=== PATIENT | female | born 1960 | race Caucasian/White ===

== ENCOUNTER 2024-07-29 09:26 | Outpatient (AMB) | payer BC, SELFPAY ==
--- NOTE | 2024-07-29 09:25 | MHC.OFFVIS ---
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 Accompanied by: Self / Same As Patient Allergies polymyxin B Allergy (Severe, Verified 07/29/24 09:52) hives erythromycin base [Erythromycin Base] Allergy (Mild, Unverified 07/29/24 09:52) MILD NSAIDS (Non-Steroidal Anti-Inflamma [Nsaids] Allergy (Mild, Unverified 07/29/24 09:52) HIVES oxycodone [From Tylox] Allergy (Mild, Unverified 07/29/24 09:52) MILD acetaminophen [From Vicodin] Allergy (Verified 07/29/24 09:52) Rash aspirin Allergy (Verified 07/29/24 09:52) Unknown hydrocodone [From Vicodin] Allergy (Verified 07/29/24 09:52) Rash naproxen Allergy (Verified 07/29/24 09:52) Unknown Sulfa (Sulfonamide Antibiotics) Allergy (Verified 07/29/24 09:52) Unknown augmentin Adverse Reaction (Uncoded 07/29/24 09:52) abdominal pain, diarrhea Medication List - Last Reconciled 07/29/24 by Roya Craven LPN amlodipine-benazepril 10-40 mg 1 cap PO DAILY atorvastatin 20 mg PO DAILY budesonide-formoterol 160-4.5 mcg/actuation (Breyna) 2 puffs inhalation BID loratadine 10 mg PO DAILY omeprazole 20 mg PO DAILY HPI HPI Cough(COMPLEX): Details: Renee is a pleasnt 64 year old female, former smoker, quit 15 years ago with 20 pack year history, with underlying asthma, allergic rhinitis, GERD and LIZZ on CPAP. She was referred by PCP for pulmonary evaluation for subacute cough. She reports cough started in mid April and has persistent. On 06/13 +RSV, treated with benzonatate with minimal improvement. PCP then sent doxycycline as well as prednisone on 06/21 with significant improvement in symptoms. CXR 06/27 unremarkable. She is currently on Breyna, using albuterol MDI/neb infrequently recently, however multiple times per day with RSV. She continues to report persistent mucous in throat with occasional dry cough, denies chest congestion, wheezing or dyspnea. She was dx with asthma as a child, never requiring intubation/hospitalization. She endorses multiple seasonal allergies, no recent allergy testing. She has no pets at home. She denies any occupational exposures however reports worsening symptoms at work with poor air quality. She reports sister with asthma, otherwise no pertinent family history. [facility] Social History (Updated 07/29/24 @ 09:43 by Roya Craven LPN) Patient Tobacco Use Status: Former Tobacco user Cigarette Packs Per Day: 0.5 Years Smoked: 30+ Quit in 2007 Review of Systems Const Denies chills, Denies excessive sweating, Denies fever(s), Denies headache(s) and Denies night sweats Eyes Denies dry eyes, Denies irritation and Denies itchy eyes ENT Reports Normal hearing present, Denies headache(s), Denies nasal congestion, Denies nasal discharge, Reports post nasal drip and Denies sore throat Card Denies chest pain, Denies chest pain at rest, Denies chest pain with activity, Denies claudication, Denies leg edema, Denies dyspnea, Denies dyspnea on exertion, Denies orthopnea and Denies paroxysmal nocturnal dyspnea Resp Reports cough, Denies excessive phlegm production, Denies pain on inspiration, Denies pain with cough, Denies dyspnea, Denies dyspnea on exertion, Denies stridor and Denies wheezing Musc Denies myalgias Neuro Reports Normal hearing present and Denies headache(s) Endo Denies excessive sweating Payam/Lymph Denies lymphadenopathy Aller/Immun Denies itchy eyes, Denies seasonal rhinorrhea and Denies wheezing Physical Exam Vital Signs: Last Vital Signs Pulse 91 07/29/24 09:30 BP 128/70 07/29/24 09:30 Pulse Ox 97 07/29/24 09:30 Oxygen Delivery Method Room Air 07/29/24 09:30 BMI result Body Mass Index 36.5 Const General: cooperative, healthy appearing, comfortable, no acute distress, well developed and alert Nutritional Appearance: obese Orientation/consciousness: patient oriented x3 Limitations: no limitations HEENT Head: Yes normal to inspection, Yes normocephalic and Yes atraumatic Ears: hearing grossly normal bilaterally and external ears normal Eyes General: appearance normal, both eyes and all related structures Eyelids: Yes eyelids normal Sclerae: sclerae normal EOM: EOMs intact bilaterally Neck Neck: Yes normal visual inspection and Yes no lymphadenopathy Lymphatic: no lymphadenopathy noted Chest Chest palpation & inspection: normal inspection of the chest Resp Effort & Inspection: normal respiratory effort, able to speak in complete sentences, no audible wheezes, no stridor, not tachypneic, no tripod positioning and no use of accessory muscles Cardio Jugular venous distension: no JVD Rate: regular rate Rhythm: regular rhythm Skin Other: warm, dry General skin exam: no rashes or lesions noted Neuro General: patient oriented x3 Cranial nerves: Yes Normal hearing present Cognition (Neuro): normal cognition Gait exam (Neuro): Normal gait present Extrem General: Yes normal to inspection, Yes capillary refill normal, Yes no clubbing, cyanosis or edema and Yes no pedal edema Psych Appearance: grossly normal and well kempt Speech and movement: Normal speech and movement present and Clear speech present Affect: normal affect Attitude: cooperative Thought process: Normal thought process present Thought content: Normal thought content present Insight: Good insight present (Psych) Judgement: Good judgement present (Psych) Assessment & Plan Assessment & Plan (1) Asthma: Code(s): J45.909 - Unspecified asthma, uncomplicated Category: Medical (2) Cough: Code(s): R05.9 - Cough, unspecified Category: Medical (3) Environmental allergies: Code(s): Z91.09 - Other allergy status, other than to drugs and biological substances Category: Medical (4) Personal history of tobacco use: Code(s): Z87.891 - Personal history of nicotine dependence Category: Social Hx Plan Renee presents for pulmonary evaluation after prolonged cough s/p RSV. She was treated with prednisone and doxycycline with significant improvements in symptoms, CXR 06/27 unremarkable. Continued symptoms may be allergy related and secondary to post nasal drip. Will empirically trial ipratropium nasal spray. Will send for PFT and RAST. All questions were answered and patient is in agreement of plan. Will follow up to review results or sooner if needed. Orders: Orders Immunoglobulin E Today Z91.09 - Other allergy status, other than to drugs and biological substances Resp Allergy Profile Region I Today Z91.09 - Other allergy status, other than to drugs and biological substances Complete Blood Count Auto Diff Today Z91.09 - Other allergy status, other than to drugs and biological substances PFT pulmonary function test Today J45.909 - Unspecified asthma, uncomplicated Medications: New ipratropium bromide administer into each nostril 2 sprays intranasal BID 30 mL 3RF Coding Level of Care Code New Pt Level 4 (12844) Diagnoses Asthma J45.909 Cough R05.9 Environmental allergies Z91.09 Personal history of tobacco use Z87.891
[2024-07-29 09:30] VITALS: BP 128/70; PULSE 91; O2SAT 97; BMI 36.5
--- OUTSIDE RECORDS SUMMARY | 2024-07-29 10:35 | XMS_ITS | Clinical Summary ---
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 Name Role Phone Unavailable Primary Care Provider Unavailabl e Social History Tobacco Use Types Packs/Day Years Used Date Smoking Tobacco: Never Assessed Sex and Gender Information Value Date Recorded Sex Assigned at Not on file Gender Identity Not on file Sexual Orientation Not on file Plan of Treatment Health Maintenance Due Date Last Done Comments Hepatitis C Virus Screening 1960 HIV Screening 07/04/1972 DTaP/Tdap/Td Vaccines (1 - Tdap) 07/04/1978 Pneumococcal Vaccines 50+ (1 of 1 - PCV) 07/04/2009 Zoster (Shingles) Vaccine (1 of 2) 07/04/2009 COVID-19 Vaccine ( - 2023-2 5 season) 2024 RSV Vaccine 60 years and old er and Patients (1 - 1-dose 75+ series) 07/04/2034 Hepatitis B Vaccines Aged Out No long er eligible based on patient's age to complete this topic Pneumococcal Vaccine: Pediat umesh (0-5 Years) and At-Risk Patients (6 to 49 Years) Aged Out No longer eligible b ased on patient's age to complete this topic
== END 2024-07-29 10:11 | disposition home or self-care (01) ==
LOC: HO.HPSW 09:27
PROVIDERS: PCP Internal Medicine; Referring Provider Internal Medicine; Visit Provider Nurse Practitioner Family
DX: J45.909 Unspecified asthma, uncomplicated (principal); R05.9 Cough, unspecified; Z91.09 Other allergy status, other than to drugs and biological substances; Z87.891 Personal history of nicotine dependence
CPT/HCPCS: 99204

== ENCOUNTER → 2024-07-29 09:26 | Outpatient (BNVA) | payer BC, SELFPAY | PROVIDERS: PCP Internal Medicine; Referring Provider Internal Medicine; Visit Provider Nurse Practitioner Family ==

== ENCOUNTER 2024-09-10 15:21 | Outpatient (REF) | payer BC, SELFPAY ==
[2024-09-10 15:45] LABS: MANUAL DIFF FLAG NO
--- NOTE | 2024-09-10 15:51 | PFT_ITS ---
Indication: Asthma Spirometry [FEV1 to FVC 69%; FEV1 1.53 L; FVC 2.24 L. no significant response to bronchodilators noted.] Lung Volumes [Total lung capacity 88% predicted; residual volume 102% predicted; expiratory reserve volume 49% predicted] Diffusion Capacity [DLCO 91% predicted] Comparisons [none] Interpretation [There is an obstructive ventilatory defect consistent with moderate COPD. No significant response to bronchodilators noted. Lung volumes are normal except for decrease in the expiratory reserve volume secondary to an elevated BMI. Diffusing capacity is within normal limits. Clinical correlation is warranted.] MTDD
--- OUTSIDE RECORDS SUMMARY | 2024-09-10 15:56 | XMS_ITS | Clinical Summary ---
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
--- OUTSIDE RECORDS SUMMARY | 2024-09-10 15:57 | XMS_ITS | Data Portability ---
Author Organization [facility], Main Office Address [address] [place] [address] Care Team Providers Care Payroll Professional Name Role Phone ALLISON APODACA Primary Care Provider MARCELA LEWIS Back Tender [employer] Machine MAE HUERTA Vascular Surgeon [facility] Orthopedic Surgeon [facility] G[address]ologi st [phone] ABBI SCHRADER Urologist [phone] Assessment Encounter Date Assessment Date Assessment LastModified by Organization Details LastModified Time 03/23/2024 03/23/2024 Discussed with patient the signs/symptoms warranted for a return to office visit and/or an ER visit. Patient understood and agreed with the plan. Not available 03/23/2024 12:18:12 04/16/2024 04/16/2024 This service was provided using telemedicine. Patient consented to video & audio visit Patient was located in the [facility]. Provider was located in the office. No other persons participated in the telemedicine visit except for the patient unless otherwise indicated here. {{}} Total time of visit was 15 minutes. [email or web address] Not available 04/16/2024 18:45:47 06/13/2024 06/13/2024 The patient presents with symptoms of headache, earache, nasal congestion, shortness of breath with wheezing, and body aches since yesterday morning. She has a known history of asthma and was recently exposed to influenza A through a friend. Flu and COVID tests were negative today. Given her symptoms and confirmed RSV diagnosis, we will focus on supportive care and close monitoring of her respiratory status. I did send quincy nieves for cough. At this time, we will hold off on oral steroids as she does not have significant respiratory distress, and her lung exam does not indicate severe wheezing or prolonged expiratory phase. However, if symptoms worsen? s uch as increasing shortness of breath, persistent tightness, or a need for frequent albuterol use without relief? w vinicius may reconsider a short course of steroids. For now, she will continue using her albuterol inhaler as needed for wheezing or chest tightness, ensuring she does not exceed the recommended dosing frequency. If she finds herself using it more than every four hours, she should notify the office for reassessment. She should also continue maintenance inhaled corticosteroids if part of her regular asthma regimen. Supportive care measures include hydration, rest, a humidifier, and nasal saline rinses as needed for congestion relief was advised. She should monitor for worsening symptoms, including persistent shortness of breath, chest tightness, or difficulty breathing, and seek urgent care if these develop. Regarding work, given her ongoing symptoms and risk of spreading RSV, she may need time off, particularly if her job involves close contact with others or high-risk individuals. I did give her a work note off on Saturday, and she should wear a mask and practice good hand hygiene if she returns sooner. Follow-up as needed. If symptoms worsen, fever develops, or she has concerns, she should reach out sooner. [email or web address] Not available 06/13/2024 13:27:28 Plan of Treatment Reminders Order Date Submit Date Provider Last Modified By Organization Details Last Modified Time Details Appointments None recorded. Lab rapid flu (A+B) 2024 025 [email or web address] In-Office Order, Internal Use Only DO Not Attach Compendium DO Not Attach Compendium, Do Not Delete/merge, [id number] 11:15:29 rapid SARS CoV 2 Ag, QL IA, respirator y specimen 2024 025 [facility] In-Office Order, Internal Use Only DO Not Attach Compendium DO Not Attach Compendium, Do Not Delete/merge, [id number] 11:59:45 rsv (respirato ry syncytial virus), rapid, nasopharyn geal 2024 025 [place] In-Office Order, Internal Use Only DO Not Attach Compendium DO Not Attach Compendium, Do Not Delete/merge, [id number] 11:59:34 urinalysis complete, reflex culture 2023 024 [facility] (Centralized Electronic Ordering - All Locations), Patient Can Go To The Location Of Their Choice, [id number] 4 08:09:01 urinalysis , dipstick 2023 024 [facility] In-Office Order, Internal Use Only DO Not Attach Compendium DO Not Attach Compendium, Do Not Delete/merge, [id number] 13:24:59 culture, urine 2023 024 [facility] (Centralized Electronic Ordering - All Locations), Patient Can Go To The Location Of Their Choice, [id number] 4 20:06:59 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 Not improving with steroids and abx. 2024 025 [email or web address] Ennis, [address] [place] [address] [place], [address], 5 11:26:40 Procedures None recorded. Surgeries None recorded. Imaging XR, chest, 2 view - Chronic cough for 2 months; r/o infiltrate /mass 2024 025 [facility] (Ultrasound), [address] [place], [address], 5 12:06:32 Medication Orders fluconazol e 200 mg tablet 2024 025 [facility]/Pharmacy #[id number], [address] [place], [address], 5 11:20:31 benzonatat e 200 mg capsule 2024 025 [facility]/Pharmacy #[id number], [address] [place], [address], 11:23:38 prednisone 10 mg tablet 2024 025 [id number] [address] [facility], [place], [address], 17:42:05 benzonatat e 200 mg capsule 2024 025 [id number] [address] [place], [address], 12:00:52 Augmentin 875 mg-125 mg tablet 2023 025 [facility] [address] [place], [address], 10:55:14 Patient TargetsNo targets recorded. Patient Instructions Encounter Date Encounter Id Patient Instructions Last Modified By Organization Details Last Modified Time 03/23/2024 [id number] At [facility] follow up visit, all current and discharge medications (OTC, herbal therapies, supplements) reviewed and reconciled with patient and or caregiver, including potential side effects, drug interactions, instructions, and the consequences of not taking medication. Reviewed potential barriers to medication adherence, such as side effects from medication or cost of medication. [email or web address] Not available 03/23/2024 13:07:19 04/16/2024 [id number] Acute Sinusitis: Care Instructions [email or web address] Not available 04/16/2024 14:24:24 06/23/2024 [id number] Acute Sinusitis: Care Instructions [email or web address] Not available 06/23/2024 17:43:20 bronchitis: care instructions [email or web address] Not available 06/23/2024 15:17:22 06/27/2024 [id number] candidiasis: care instructions [email or web address] Not available 06/27/2024 11:20:29 chronic cough: care instructions [email or web address] Not available 06/27/2024 11:17:21 Reason for Referral [employer] Referral for Chronic cough Chronic cough since april. Not improving with steroids and abx. Referring Physician: Allison Apodaca, Family Medicine, Encounter Date: 06/27/2024 Results Created Date Observation Date Name Description Value Unit Range Abnormal Flag Note LastModifiedBy Organization Detail LastModifiedTime 03/17/20 24 03/18/2024 CMP14 (REFL EX HGB A1C) glucose 81 mg/dL 70-99 normal Not Available [facility] ([facility]) [address] [place], [address], 03/18/2024 12:06:25 03/17/20 24 03/18/2024 CMP14 (REFL EX HGB A1C) BUN 21 mg/dL 8-27 normal Not Available [facility] ([facility]) [address] [place], [address], 03/18/2024 12:06:25 03/17/20 24 03/18/2024 CMP14 (REFL EX HGB A1C) creatinine 0.71 mg/dL 0.57-1 .00 normal Not Available [facility] ([facility]) [address] [place], [address], 03/18/2024 12:06:25 03/17/20 24 03/18/2024 CMP14 (REFL EX HGB A1C) eGFR 95 mL/mi n/1.7 3 >59 normal Not Available [facility] ([facility]) [address] [place], [address], 03/18/2024 12:06:25 03/17/20 24 03/18/2024 CMP14 (REFL EX HGB A1C) BUN/creatini ne ratio 30 12-28 above high normal Not Available [facility] ([facility]) [address] [place], [address], 03/18/2024 12:06:25 03/17/20 24 03/18/2024 CMP14 (REFL EX HGB A1C) sodium 142 mmol/ L 134-14 4 normal Not Available [facility] ([facility]) [address] [place], [address], 03/18/2024 12:06:25 03/17/2003/18/2024 CMP14 (REFL EX HGB A1C) potassium 4.1 mmol/ L 3.5-5. 2 normal Not Available [facility] ([facility]) [address] [place], [address], 03/18/2024 12:06:25 03/17/2003/18/2024 CMP14 (REFL EX HGB A1C) chloride 103 mmol/ L 96-106 normal Not Available [facility] ([facility]) [address] [place], [address], 03/18/2024 12:06:25 03/17/2003/18/2024 CMP14 (REFL EX HGB A1C) carbon dioxide, total 21 mmol/ L 20-29 normal Not Available [facility] ([facility]) [address] [place], [address], 03/18/2024 12:06:25 03/17/2003/18/2024 CMP14 (REFL EX HGB A1C) calcium 8.8 mg/dL 8.7-10 .3 normal Not Available [facility] ([facility]) [address] [place], [address], 03/18/2024 12:06:25 03/17/2003/18/2024 CMP14 (REFL EX HGB A1C) protein, total 6.8 g/dL 6.0-8. 5 normal Not Available [facility] ([facility]) [address] [place], [address], 03/18/2024 12:06:25 03/17/2003/18/2024 CMP14 (REFL EX HGB A1C) albumin 4.6 g/dL 3.9-4. 9 normal Not Available [facility] ([facility]) [address] [place], [address], 03/18/2024 12:06:25 03/17/20 24 03/18/2024 CMP14 (REFL EX HGB A1C) globulin, total 2.2 g/dL 1.5-4. 5 Not Available [facility] ([facility]) [address] [place], [address], 03/18/2024 12:06:25 03/17/20 24 03/18/2024 CMP14 (REFL EX HGB A1C) bilirubin, total 0.6 mg/dL 0.0-1. 2 normal Not Available [facility] ([facility]) [address] [place], [address], 03/18/2024 12:06:25 03/17/2003/18/2024 CMP14 (REFL EX HGB A1C) alkaline phosphatase 63 IU/L 44-121 normal Not Available [facility] ([facility]) [address] [place], [address], 03/18/2024 12:06:25 03/17/20 24 03/18/2024 CMP14 (REFL EX HGB A1C) AST (SGOT) 18 IU/L 0-40 normal Not Available [facility] ([facility]) [address] [place], [address], 03/18/2024 12:06:25 03/17/20 24 03/18/2024 CMP14 (REFL EX HGB A1C) ALT (SGPT) 12 IU/L 0-32 normal Not Available [facility] ([facility]) [address] [place], [address], 03/18/2024 12:06:25 03/17/2003/18/2024 CBC WITH DIFFE RENTI AL/PL ATELE T WBC 11.3 x10e3 /uL 3.4-10 .8 above high normal Not Available [facility] ([facility]) [address] [place], [address], 03/18/2024 12:06:27 03/17/20 24 03/18/2024 CBC WITH DIFFE RENTI AL/PL ATELE T RBC 4.37 x10e6 /uL 3.77-5 .28 normal Not Available [facility] ([facility]) [address] [place], [address], 03/18/2024 12:06:27 03/17/20 24 03/18/2024 CBC WITH DIFFE RENTI AL/PL ATELE T hemoglobin 13.0 g/dL 11.1-1 5.9 normal Not Available [facility] ([facility]) [address] [place], [address], 03/18/2024 12:06:27 03/17/20 24 03/18/2024 CBC WITH DIFFE RENTI AL/PL ATELE T hematocrit 39.2 % 34.0-4 6.6 normal Not Available [facility] ([facility]) [address] [place], [address], 03/18/2024 12:06:27 03/17/20 24 03/18/2024 CBC WITH DIFFE RENTI AL/PL ATELE T MCV 90 fL 79-97 normal Not Available [facility] ([facility]) [address] [place], [address], 03/18/2024 12:06:27 03/17/20 24 03/18/2024 CBC WITH DIFFE RENTI AL/PL ATELE T MCH 29.7 pg 26.6-3 3.0 normal Not Available [facility] ([facility]) [address] [place], [address], 03/18/2024 12:06:27 03/17/20 24 03/18/2024 CBC WITH DIFFE RENTI AL/PL ATELE T MCHC 33.2 g/dL 31.5-3 5.7 normal Not Available [facility] ([facility]) [address] [place], [address], 03/18/2024 12:06:27 03/17/20 24 03/18/2024 CBC WITH DIFFE RENTI AL/PL ATELE T RDW 12.9 % 11.7-1 5.4 Not Available [facility] ([facility]) [address] [facility], [place], [address], 03/18/2024 12:06:27 03/17/20 24 03/18/2024 CBC WITH DIFFE RENTI AL/PL ATELE T platelets 235 x10e3 /uL 150-45 0 normal Not Available [facility] ([facility]) [address] [facility], [place], [address], 03/18/2024 12:06:27 03/17/20 24 03/18/2024 CBC WITH DIFFE RENTI AL/PL ATELE T neutrophils 62 % not estab. normal Not Available [facility] ([facility]) [address] [facility], [place], [address], 03/18/2024 12:06:27 03/17/20 24 03/18/2024 CBC WITH DIFFE RENTI AL/PL ATELE T lymphs 31 % not estab. normal Not Available [facility] ([facility]) [address] [facility], [place], [address], 03/18/2024 12:06:27 03/17/20 24 03/18/2024 CBC WITH DIFFE RENTI AL/PL ATELE T monocytes 6 % not estab. normal Not Available [facility] ([facility]) [address] [facility], [place], [address], 03/18/2024 12:06:27 03/17/20 24 03/18/2024 CBC WITH DIFFE RENTI AL/PL ATELE T eos 1 % not estab. normal Not Available [facility] ([facility]) [address] [facility], [place], [address], 03/18/2024 12:06:27 03/17/20 24 03/18/2024 CBC WITH DIFFE RENTI AL/PL ATELE T basos 0 % not estab. normal Not Available [facility] ([facility]) [address] [place], [address], 03/18/2024 12:06:27 03/17/20 24 03/18/2024 CBC WITH DIFFE RENTI AL/PL ATELE T immature cells WEATHER ANALYST Not Available [facility] ([facility]) [address] [place], [address], 03/18/2024 12:06:27 03/17/20 24 03/18/2024 CBC WITH DIFFE RENTI AL/PL ATELE T neutrophils (absolute) 6.8 x10e3 /uL 1.4-7. 0 normal Not Available [facility] ([facility]) [address] [place], [address], 03/18/2024 12:06:27 03/17/20 24 03/18/2024 CBC WITH DIFFE RENTI AL/PL ATELE T lymphs (absolute) 3.5 x10e3 /uL 0.7-3. 1 above high normal Not Available [facility] ([facility]) [address] [place], [address], 03/18/2024 12:06:27 03/17/20 24 03/18/2024 CBC WITH DIFFE RENTI AL/PL ATELE T monocytes(ab solute) 0.7 x10e3 /uL 0.1-0. 9 normal Not Available [facility] ([facility]) [address] [place], [address], 03/18/2024 12:06:27 03/17/20 24 03/18/2024 CBC WITH DIFFE RENTI AL/PL ATELE T eos (absolute) 0.1 x10e3 /uL 0.0-0. 4 normal Not Available [facility] ([facility]) [address] [place], [address], 03/18/2024 12:06:27 03/17/20 24 03/18/2024 CBC WITH DIFFE RENTI AL/PL ATELE T baso (absolute) 0.1 x10e3 /uL 0.0-0. 2 normal Not Available [facility] ([facility]) [address] [facility], [place], [address], 03/18/2024 12:06:27 03/17/20 24 03/18/2024 CBC WITH DIFFE RENTI AL/PL ATELE T immature granulocytes 0 % not estab. Not Available [facility] ([facility]) [address] [facility], [place], [address], 03/18/2024 12:06:27 03/17/20 24 03/18/2024 CBC WITH DIFFE RENTI AL/PL ATELE T immature grans (abs) 0.0 x10e3 /uL 0.0-0. 1 Not Available [facility] ([facility]) [address] [place], [address], 03/18/2024 12:06:27 03/17/20 24 03/18/2024 CBC WITH DIFFE RENTI AL/PL ATELE T NRBC WEATHER ANALYST Not Available [facility] ([facility]) [address] [place], [address], 03/18/2024 12:06:27 03/17/20 24 03/18/2024 CBC WITH DIFFE RENTI AL/PL ATELE T hematology comments: WEATHER ANALYST Not Available [facility] ([facility]) [address] [facility], [place], [address], 03/18/2024 12:06:27 03/17/20 24 03/18/2024 MEGHAN+L IPASE amylase 67 U/L 31-110 normal Not Available [facility] ([facility]) [address] [place], [address], 03/18/2024 12:06:28 03/17/20 24 03/18/2024 MEGHAN+L IPASE lipase 21 U/L 14-72 normal Not Available [facility] ([facility]) [address] [facility], [place], [address], 03/18/2024 12:06:28 03/23/20 24 03/25/2024 URINE CULTU RE, ROUTI NE urine culture, routine Final report Not Available [facility] ([facility]) [address] [facility], [place], [address], 03/25/2024 20:06:59 03/23/20 24 03/25/2024 URINE CULTU RE, ROUTI NE result 1 No growth Not Available [facility] ([facility]) [address] [facility], [place], [address], 03/25/2024 20:06:59 03/23/20 24 03/23/2024 urina lysis , dipst ick Leukocytes Negati ve Not Available In-Office Order Internal Use Only DO Not Attach Compendium DO Not Attach Compendium, Do Not Delete/merge, [id number] 03/23/2024 12:18:14 03/23/20 24 03/23/2024 urina lysis , dipst ick Nitritie negati ve Not Available In-Office Order Internal Use Only DO Not Attach Compendium DO Not Attach Compendium, Do Not Delete/merge, [id number] 03/23/2024 12:18:14 03/23/20 24 03/23/2024 urina lysis , dipst ick Urobilinogen .2 Not Available In-Of fice Order Internal Use Only DO Not Attach Compendium DO Not Attach Compendium, Do Not Delete/merge, [id number] 03/23/2024 12:18:14 03/23/20 24 03/23/2024 urina lysis , dipst ick Protein Negati ve Not Available In-Office Order Internal Use Only DO Not Attach Compendium DO Not Attach Compendium, Do Not Delete/merge, [id number] 03/23/2024 12:18:14 03/23/20 24 03/23/2024 urina lysis , dipst ick pH 6.0 Not Available In-Office Order Internal Use Only DO Not Attach Compendium DO Not Attach Compendium, Do Not Delete/merge, [id number] 03/23/2024 12:18:14 03/23/2003/23/2024 urina lysis , dipst ick Blood Negati ve Not Available In-Office Order Internal Use Only DO Not Attach Compendium DO Not Attach Compendium, Do Not Delete/merge, [id number] 03/23/2024 12:18:14 03/23/20 24 03/23/2024 urina lysis , dipst ick Specific Hosmer 1.015 Not Available In-Off ice Order Internal Use Only DO Not Attach Compendium DO Not Attach Compendium, Do Not Delete/merge, [id number] 03/23/2024 12:18:14 03/23/2003/23/2024 urina lysis , dipst ick Ketone Negati ve Not Available In-Office Order Internal Use Only DO Not Attach Compendium DO Not Attach Compendium, Do Not Delete/merge, [id number] 03/23/2024 12:18:14 03/23/20 24 03/23/2024 urina lysis , dipst ick Bilirubin Negati ve Not Available In-Office Order Internal Use Only DO Not Attach Compendium DO Not Attach Compendium, Do Not Delete/merge, [id number] 03/23/2024 12:18:14 03/23/2003/23/2024 urina lysis , dipst ick Glucose Negati ve Not Available In-Office Order Internal Use Only DO Not Attach Compendium DO Not Attach Compendium, Do Not Delete/merge, [id number] 03/23/2024 12:18:14 03/23/20 24 03/23/2024 urina lysis , dipst ick Appearance Clear Not Available In-Offi ce Order Internal Use Only DO Not Attach Compendium DO Not Attach Compendium, Do Not Delete/merge, [id number] 03/23/2024 12:18:14 03/23/2003/23/2024 urina lysis , dipst ick Color Yellow Not Available In-Office Order Internal Use Only DO Not Attach Compendium DO Not Attach Compendium, Do Not Delete/merge, [id number] 03/23/2024 12:18:14 04/17/2004/18/2024 UA/M W/RFL X CULTU RE, ROUTI NE specific gravity 1.019 1.005- 1.030 normal Not Available [facility] ([facility]) [address] [facility], [place], [address], 04/18/2024 08:09:01 04/17/20 24 04/18/2024 UA/M W/RFL X CULTU RE, ROUTI NE pH 7.5 5.0-7. 5 normal Not Available [facility] ([facility]) [address] [place], [address], 04/18/2024 08:09:01 04/17/2004/18/2024 UA/M W/RFL X CULTU RE, ROUTI NE urine-color Yellow yellow Not Available [facility] ([facility]) [address] [place], [address], 04/18/2024 08:09:01 04/17/20 24 04/18/2024 UA/M W/RFL X CULTU RE, ROUTI NE appearance Clear clear Not Available [facility] ([facility]) [address] [place], [address], 04/18/2024 08:09:01 04/17/20 24 04/18/2024 UA/M W/RFL X CULTU RE, ROUTI NE WBC esterase Negati ve negati ve Not Available [facility] ([facility]) [address] [place], [address], 04/18/2024 08:09:01 04/17/2004/18/2024 UA/M W/RFL X CULTU RE, ROUTI NE protein Negati ve negati ve/tra ce Not Available [facility] ([facility]) [address] [place], [address], 04/18/2024 08:09:01 04/17/20 24 04/18/2024 UA/M W/RFL X CULTU RE, ROUTI NE glucose Negati ve negati ve Not Available [facility] ([facility]) [address] [place], [address], 04/18/2024 08:09:01 04/17/20 24 04/18/2024 UA/M W/RFL X CULTU RE, ROUTI NE ketones Negati ve negati ve Not Available [facility] ([facility]) [address] [place], [address], 04/18/2024 08:09:01 04/17/20 24 04/18/2024 UA/M W/RFL X CULTU RE ROUTI NE occult blood Negati ve negati ve Not Available [facility] ([facility]) [address] [place], [address], 04/18/2024 08:09:01 04/17/20 24 04/18/2024 UA/M W/RFL X CULTU RE ROUTI NE bilirubin Negati ve negati ve Not Available [facility] ([facility]) [address] [place], [address], 04/18/2024 08:09:01 04/17/20 24 04/18/2024 UA/M W/RFL X CULTU RE ROUTI NE urobilinogen ,semi-qn 0.2 mg/dL 0.2-1. 0 normal Not Available [facility] ([facility]) [address] [place], [address], 04/18/2024 08:09:01 04/17/20 24 04/18/2024 UA/M W/RFL X CULTVanna RE ROUTI NE nitrite, urine Negati ve negati ve Not Available [facility] ([facility]) [address] [place], [address], 04/18/2024 08:09:01 04/17/20 24 04/18/2024 UA/M W/RFL X CULTU RE, ROUTI NE microscopic examination Commen t Micro scopi c follo ws if indic ated. Not Available [facility] ([facility]) [address] [facility], [place], [address], 04/18/2024 08:09:01 04/17/20 24 04/18/2024 UA/M W/RFL X CULTU RE, ROUTI NE microscopic examination See below: Micro scopi c was indic ated and was perfo rmed. Not Available [facility] ([facility]) [address] [facility], [place], [address], 04/18/2024 08:09:01 04/17/20 24 04/18/2024 UA/M W/RFL X CULTU RE, ROUTI NE WBC None seen /hpf 0 - 5 Not Available [facility] ([facility]) [address] [facility], [place], [address], 04/18/2024 08:09:01 04/17/20 24 04/18/2024 UA/M W/RFL X CULTU RE, ROUTI NE RBC 0-2 /hpf 0 - 2 Not Available [facility] ([facility]) [address] [facility], [place], [address], 04/18/2024 08:09:01 04/17/20 24 04/18/2024 UA/M W/RFL X CULTU RE, ROUTI NE epithelial cells (non renal) 0-10 /hpf 0 - 10 Not Available [facility] ([facility]) [address] [facility], [place], [address], 04/18/2024 08:09:01 04/17/20 24 04/18/2024 UA/M W/RFL X CULTU RE, ROUTI NE epithelial cells (renal) WEATHER ANALYST Not Available [facility] ([facility]) [address] [facility], [place], [address], 04/18/2024 08:09:01 04/17/20 24 04/18/2024 UA/M W/RFL X CULTU RE, ROUTI NE casts None seen /lpf none seen Not Available [facility] ([facility]) [address], [place], [address], 04/18/2024 08:09:01 04/17/20 24 04/18/2024 UA/M W/RFL X CULTU RE, ROUTI NE cast type WEATHER ANALYST Not Available [facility] ([facility]) [address], [place], [address], 04/18/2024 08:09:01 04/17/20 24 04/18/2024 UA/M W/RFL X CULTU RE, ROUTI NE crystals WEATHER ANALYST Not Available [facility] ([facility]) [address] [facility], [place], [address], 04/18/2024 08:09:01 04/17/20 24 04/18/2024 UA/M W/RFL X CULTU RE, ROUTI NE crystal type WEATHER ANALYST Not Available [facility] ([facility]) [address] [facility], [place], [address], 04/18/2024 08:09:01 04/17/20 24 04/18/2024 UA/M W/RFL X CULTU RE, ROUTI NE mucus threads WEATHER ANALYST Not Available [facility] ([facility]) [address] [facility], [place], [address], 04/18/2024 08:09:01 04/17/20 24 04/18/2024 UA/M W/RFL X CULTU RE, ROUTI NE bacteria None seen none seen/f ew Not Available [facility] ([facility]) [address] [facility], [place], [address], 04/18/2024 08:09:01 04/17/20 24 04/18/2024 UA/M W/RFL X CULTU RE, ROUTI NE yeast WEATHER ANALYST Not Available [facility] ([facility]) [address] [facility], [place], [address], 04/18/2024 08:09:01 04/17/20 24 04/18/2024 UA/M W/RFL X CULTU RE, ROUTI NE trichomonas WEATHER ANALYST Not Available [facility] ([facility]) [address] [facility], [place], [address], 04/18/2024 08:09:01 04/17/20 24 04/18/2024 UA/M W/RFL X CULTU RE, ROUTI NE comment WEATHER ANALYST Not Available [facility] ([facility]) [address] [facility], [place], [address], 04/18/2024 08:09:01 04/17/20 24 04/18/2024 UA/M W/RFL X CULTU RE, ROUTI NE urinalysis reflex Commen t This speci men will not refle x to a Urine Cultu re. Not Available [facility] ([facility]) [address] [facility], [place], [address], 04/18/2024 08:09:01 06/13/19 25 06/13/2024 rsv (resp irato ry syncy tial virus ), rapid , nasop haryn geal RSV, RAPID positi ve Not Available In-Office Order Internal Use Only DO Not Attach Compendium DO Not Attach Compendium, Do Not Delete/merge, [id number] 06/13/2024 11:58:24 06/13/19 25 06/13/2024 rapid SARS CoV 2 Ag, QL IA, respi rator y speci men RAPID SARS COV 2 negati ve Not Available In-Office Order Internal Use Only DO Not Attach Compendium DO Not Attach Compendium, Do Not Delete/merge, [id number] 06/13/2024 11:58:04 06/13/19 25 06/13/2024 rapid flu (A+B) Flu A negati ve Not Available In-Office Order Internal Use Only DO Not Attach Compendium DO Not Attach Compendium, Do Not Delete/merge, [id number] 06/13/2024 10:43:25 06/13/19 25 06/13/2024 rapid flu (A+B) Flu B negati ve Not Available In-Office Order Internal Use Only DO Not Attach Compendium DO Not Attach Compendium, Do Not Delete/merge, [id number] 06/13/2024 10:43:25 06/27/19 25 06/27/2024 XR, chest , 2 view Chest 2 Views Fronta l and Lat INDICA TION/C LINICA L QUESTI ON: Reason : chroni c cough for 2 months ; Clinic al Questi on(s): Other: ; R O infilt rate mass / Other: TECHNI QUE: Fronta l and latera l views of the chest. COMPAR NICANOR: 021. FINDIN GS: LINES AND TUBES: None. LUNGS AND PLEURA : RIGHT CHEST: The right lung is clear and there is no right effusi on. LEFT CHEST: The left lung is clear and there is no left effusi on. HEART, MEDIAS TINUM AND SUZI: The heart is of normal size. The medias tinum and suzi are normal . BONES AND SOFT TISSUE S: No acute bony abnorm ality. IMPRES SEFERINO: 1. No active diseas e in chest. WSN: [id number] Orderi ng Physic kelsea: Allison Patel Dictat ed By: Ernie Gunderson MD Dictat ed Date/T ramses: 12:03 p Review ed By: Ernie Gunderson MD Signed By: Ernie Gunderson MD Signed Date/T ramses: 12:03 pm Transc ribed By: ARSALAN Transc ribed Date/T ramses: 12:03 pm Patien t Class: Outpat ient [facility] (Outpt Imaging) [address] [place], [address], 06/27/2024 14:02:45 Result Notes None recorded. Problems Name Problem SNOMED Code Status Onset Date Resolution Date Notes Provider Name and Address Organization Details Recorded Time Shoulder joint pain 196513214 Completed 201211/17/2013 IMPRESSI ON: WOULD NOT RECCOMEN D X-RAY. PT ORDER. F/U IF NOT IMPROVIN G; RECORDED 10/03/19 13 11:35AM BY STEFFANY ALLRED MA, ANNOTATI ON/ADDEN DUM Allison Apodaca MD [address], [place], [address] , [facility] 6 07:25:24 Acute sinusiti s 37049078 Completed 201211/17/2013 RECORDED 10/03/19 13 11:35AM BY STEFFANY ALLRED MA, ANNOTATI ON/ADDEN DUM JOYCELYN Salas [address] [facility] [address], [place], [address] , [facility] 4 10:50:28 Allergic rhinitis 71501888 Active Not Available Counts include 234 beds at the [facility] 1 11:13:07 Anxiety state 574798472 Active no meds; not currentl y an issue Not Available [facility] 1 11:13:07 Tobacco user 786970176 Completed 04/26/2014 Allison Apodaca MD [address] [address], [place], [address] , [facility] 6 07:25:24 History of clinical finding in subject 806642927 Completed 04/26/2014 Allison Apodaca MD [address] [address], [place], [address] , [facility] 6 07:25:24 Asthma 169139237 Completed 04/24/2017 uses proair leandron Allison Apodaca MD [address] [facility] [address], [place], [address] , [facility] 3 09:51:42 Acute asthma 218889644 Completed 04/24/2017 JACKELIN Fernandez, [facility] 7 15:14:00 Screenin g for malignan t neoplasm of breast Completed 201211/17/2013 RECORDED 10/03/19 13 11:35AM BY STEFFANY ALLRED MA, ANNOTATI ON/ADDEN DUM Allison Apodaca MD [address], [place], [address] , [facility] 6 07:25:24 Conjunct ivitis 2313835 Completed 201211/17/2013 RECORDED 07/11/19 13 2:41PM BY CK TRIPATHI MA, ANNOTATI ON/LUCRETIA Apodaca MD [address] [facility] [address], [place], [address] , [facility] 6 07:25:24 Cough 47090624 Completed 201211/17/2013 IMPRESSI ON: SHE IS CONCERNVinicius Charles THAT HAS PNEUMONI A AND WOULD LIKE CXR OR ANTIBIOT ICS; RECORDED 10/03/19 13 11:35AM BY STEFFANY ALLRED MA, SPEEDY ON/LUCRETIA Apodaca MD [address] [facility] [address], [place], [address] , [facility] 6 07:25:24 Referred otalgia 47320463 Completed 201211/17/2013 IMPRESSI ON: THIS MAY BE FROM ALLERGIE S CREATING EUSTACHI ON TUBE DYSFUNCT ION. SHE WILL TRY A DECONGES TANT AND WAS ALSO GIVEN AN ENT REFERRAL . SHE WILL MAKE AN APPT IF HER SX PERSIST. ; RECORDED 05/08/19 13 8:57AM BY STEFFANY ALLRED MA, ANNOTATI ON/LUCRETIA Apodaca MD [address], [place], [address] , [facility] 6 07:25:24 Influenz a vaccine needed 13636570946 06 Completed 201111/17/2013 RECORDED 02/05/20 12 10:38AM BY YUN SAVAGE I, OFFICE VISIT Allison Apodaca MD [address] [facility] [address], [place], [address] , [facility] 6 07:25:24 Pure hypercho lesterol emia 827705410 Completed 07/31/2016 Allison Apodaca MD [address] [facility] [address], [place], [address] , [facility] 7 10:44:33 Renewal of prescrip tion Completed 201211/17/2013 RECORDED 05/08/19 13 8:57AM BY STEFFANY ALLRED MA, SPEEDY ON/ADDMARTÍN Apodaca MD [address] [facility] [address], [place], [address] , [facility] 6 07:25:24 Obesity 323204815 Completed 201111/17/2013 IMPRESSI ON: SHE IS WORKING ON WEIGHT LOSS, IMPROVIN G DIET AND EXERCISI NG MORE.; RECORDED 02/05/20 12 8:12AM BY SPEEDY RODRIGUEZ ON/LUCRETIA Apodaca MD [address] [address], [place], [address] , [facility] 6 07:25:24 Active or passive immuniza tion Completed 201211/17/2013 RECORDED 05/08/19 13 9:34AM BY ELSA VELIZ PA-C, OFFICE VISIT Allison Apodaca MD [address] [address], [place], [address] , [facility] 6 07:25:24 Adult health examinat ion Completed 201111/17/2013 IMPRESSI ON: NOT DUE FOR PAP FOR 2-4 YEARS BASED ON IF HER PAP HAD HPV DONE. WE WILL SEE OLD RECORDS. CAN BE REVISITE D AT HER NEXT PHYSICAL IN A YEAR. SHE HAD COLONOSC OPY ABOUT A YEAR AGO PER PT. WE WILL TRY TO OBTAIN RECORDS. ; RECORDED 02/05/20 12 8:12AM BY SPEEDY RODRIGUEZ ON/LUCRETIA Apodaca MD [address] [address], [place], [address] , [facility] 6 07:25:24 Disorder of upper respirat ory system 512638864 Completed 201211/17/2013 RECORDED 07/09/19 13 8:45AM BY STEFFANY ALLRED MA, FRANSISCAATI ON/LUCRETIA Apodaca MD [address] [address], [place], [address] , [facility] 6 07:25:24 Obstruct aditya sleep apnea syndrome 45468424 Active CPAP Not Available [facility] 1 11:13:07 Administ ration of diphther ia and tetanus vaccine Completed 201211/17/2013 RECORDED 07/09/19 13 8:45AM BY STEFFANY ALLRED MA, ANNOTATI ON/LUCRETIA Apodaca MD [address] [address], [place], [address] , [facility] 6 07:25:24 Acute upper respirat ory infectio n 54362899 Completed 201211/17/2013 IMPRESSI ON: COMPLETE D ZPACK 4 DAYS AGO, NO ADDITION AL ABX NECESSAR Y; RECORDED 10/23/19 13 3:36PM BY YUN SAVAGE I, FRANSISCAATI ON/LUCRETIA Apodaca MD [address] [address], [place], [address] , [facility] 6 07:25:24 Shoulder joint pain 528846821 Completed 201212/14/2013 IMPRESSI ON: WOULD NOT RECCOMEN D X-RAY. PT ORDER. F/U IF NOT IMPROVIN G; RECORDED 10/03/19 13 11:35AM BY STEFFANY ALLRED MA, ANNOTATI ON/LUCRETIA Apodaca MD [address] [facility] [address], [place], [address] , [facility] 6 07:25:24 Acute sinusiti s 07564327 Completed 201212/14/2013 RECORDED 10/03/19 13 11:35AM BY STEFFANY ALLRED MA, FRANSISCAATI ON/ADDCANDICE Hart [address] [facility] [address], [place], [address] , [facility] 4 10:50:28 Screenin g for malignan t neoplasm of breast Completed 201212/14/2013 RECORDED 10/03/19 13 11:35AM BY STEFFANY ALLRED MA, FRANSISCAATI ON/ADDMARTÍN Apodaca MD [address], [place], [address] , [facility] 6 07:25:24 Conjunct ivitis 3574068 Completed 201212/14/2013 RECORDED 07/11/19 13 2:41PM BY CK TRIPATHI MA, FRANSISCAATI ON/LUCRETIA Apodaca MD [address], [place], [address] , [facility] 6 07:25:24 Cough 81223703 Completed 201212/14/2013 IMPRESSI ON: SHE IS CONCERNE D THAT HAS PNEUMONI A AND WOULD LIKE CXR OR ANTIBIOT ICS; RECORDED 10/03/19 13 11:35AM BY STEFFANY ALLRED MA, SPEEDY NORRIS/LUCRETIA Apodaca MD [address] [facility] [address], [place], [address] , [facility] 6 07:25:24 Referred otalgia 43856765 Completed 201212/14/2013 IMPRESSI ON: THIS MAY BE FROM ALLERGIE S CREATING EUSTACHI ON TUBE DYSFUNCT ION. SHE WILL TRY A DECONGES TANT AND WAS ALSO GIVEN AN ENT REFERRAL . SHE WILL MAKE AN APPT IF HER SX PERSIST. ; RECORDED 05/08/19 13 8:57AM BY STEFFANY ALLRED MA, ANNOTATI ON/LUCRETIA Apodaca MD [address] [facility] [address], [place], [address] , [facility] 6 07:25:24 Influenz a vaccine needed [id number] 06 Completed 201112/14/2013 RECORDED 02/05/20 12 10:38AM BY YUN SAVAGE I, OFFICE VISIT Allison Apodaca MD [address] [facility] [address], [place], [address] , [facility] 6 07:25:24 Renewal of prescrip tion Completed 201212/14/2013 RECORDED 05/08/19 13 8:57AM BY STEFFANY ALLRED MA, ANNOTATI ON/LUCRETIA Apodaca MD [address] [facility] [address], [place], [address] , [facility] 6 07:25:24 Obesity 478379096 Completed 201112/14/2013 IMPRESSI ON: SHE IS WORKING ON WEIGHT LOSS, IMPROVIN G DIET AND EXERCISI NG MORE.; RECORDED 02/05/20 12 8:12AM BY YUN SAVAGE I, FRANSISCAATI ON/LUCRETIA Apodaca MD [address] [facility] [address], [place], [address] , [facility] 6 07:25:24 Active or passive immuniza tion Completed 201212/14/2013 RECORDED 05/08/19 13 9:34AM BY ELSA VELIZ PA-C, OFFICE VISIT Allison Apodaca MD [address] [facility] [address], [place], [address] , [facility] 6 07:25:24 Adult health examinat ion Completed 201112/14/2013 IMPRESSI ON: NOT DUE FOR PAP FOR 2-4 YEARS BASED ON IF HER PAP HAD HPV DONE. WE WILL SEE OLD RECORDS. CAN BE REVISITE D AT HER NEXT PHYSICAL IN A YEAR. SHE HAD COLONOSC OPY ABOUT A YEAR AGO PER PT. WE WILL TRY TO OBTAIN RECORDS. ; RECORDED 02/05/20 12 8:12AM BY SPEEDY RODRIGUEZ/LUCRETIA Apodaca MD [address] [facility] [address], [place], [address] , [facility] 6 07:25:24 Disorder of upper respirat ory system 317427943 Completed 201212/14/2013 RECORDED 07/09/19 13 8:45AM BY STEFFANY ALLRED MA, SPEEDY NORRIS/LUCRETIA Apodaca MD [address] [facility] [address], [place], [address] , [facility] 6 07:25:24 Administ ration of diphther ia and tetanus vaccine Completed 201212/14/2013 RECORDED 07/09/19 13 8:45AM BY STEFFANY ALLRED MA, SPEEDY ON/LUCRETIA Apodaca MD [address] [facility] [address], [place], [address] , [facility] 6 07:25:24 Acute upper respirat ory infectio n 13657047 Completed 201212/14/2013 IMPRESSI ON: COMPLETE D ZPACK 4 DAYS AGO, NO ADDITION AL ABX NECESSAR Y; RECORDED 10/23/19 13 3:36PM BY SPEEDY RODRIGUEZ/LUCRETIA Apodaca MD [address] [facility] [address], [place], [address] , [facility] 6 07:25:24 Postmeno pausal bleeding 02396751 Active seen by Dr Karine murguia; had endometr ial biopsy which was negative . Not Available [facility] 11:13:07 Low back pain 344186165 Active Not Available [facility] 11:13:07 Sciatica 06751696 Active Not Available [facility] 11/04/202 1 11:13:07 Tinea pedis 1348341 Active Not Available [facility] 1 11:13:07 Hyperlip idemia 47474574 Active 2016 Not Available [facility] 1 11:13:07 Acute urticari a 222490044 Completed 201604/24/2017 Leonora Olmos MA [facility], [facility] 7 15:14:04 Abscess of chest wall 47570126 Active 2016 I&Ded by Dr Huerta. Not Available [facility] 1 11:13:07 Elevated blood-pr essure reading without diagnosi s of hyperten seferino 166270159 Completed 201601/21/2019 Allison Apodaca MD [address], [place], [address] , [facility] 9 10:23:23 Moderate persiste nt asthma 522388092 Active 2016 Not Available [facility] 1 11:13:07 Cholecys titis 16035207 Active 2017 secondar y to stones; admitted to [place] 10/07- Not Available [facility] 1 11:13:07 Arthriti s of right hip 51457088976 26784 Active 2018 [facility] at [facility] Apodaca MD [address], [place], [address] , [facility] 3 08:53:32 Gastroes ophageal reflux disease 484931967 Active 2018 Not Available [facility] 1 11:13:07 Exposure to SARS-CoV -2 Completed 07/08/2020 Removal Reason: Problem added by user maddison bartlett from the COVID-19 watch flag Allison Apodaca MD [address], [place], [address] , [facility] 1 11:13:27 Hyperten sive renal disease 24858619 Active 2020 Not Available Counts include 234 beds at the [facility] 1 11:13:07 History of SARS-CoV -2 16064099790 5405691 Active 2021 Allison Apodaca MD [address] [address], [place], [address] , [facility] 2 12:57:05 Plantar fasciiti s of left foot 08521345398 333379 Active 2021 Seen at [facility] Allison Apodaca MD [address] [address], [place], [address] , [facility] 2 18:35:40 Closed fracture of phalanx of foot 60055407 Active 2022 Small toe after trauma. Seen by ortho. Healing well. Allison Apodaca MD [address] [address], [place], [address] , [facility] 3 11:54:04 Chronic kidney disease stage 1 476284666 Active 2022 Nikki fermin, [facility] 3 10:22:01 Intermit tent asthma 500869639 Active 2023 Allison Apodaca MD [address] [address], [place], [address] , [facility] 4 07:58:32 Acute bronchit is 98204799 Active 2023 CANDICE Salas [address] [address], [place], [address] , [facility] 4 10:49:28 Exacerba tion of moderate persiste nt asthma 027185208 Active 2023 CANDICE Salas [address] [address], [place], [address] , [facility] 4 10:49:34 Acute sinusiti s 10053564 Active 2023 RECORDED 10/03/19 13 11:35AM BY STEFFANY ALLRED MA, ANNOTATI ON/CANDICE Ricks [address] [facility] [address], [place], [address] , [facility] 4 10:50:28 Pain of left shoulder joint 36680922693 636205 Active 2023 Jamin Gong PA-C [address] [facility] [address], [place], [address] , [facility] 4 12:23:42 Constipa tion 97672087 Active 2023 Jamin Gong PA-C [address] [facility] [address], [place], [address] , [facility] 4 12:25:47 Skin lesion 69939912 Active 2023 Ceci fermin, [facility] 4 16:25:29 Microsco pic hematuri a 182569340 Active 2024 Benign; seen by urology, Dr Schrader . Allison Apodaca MD [address] [facility] [address], [place], [address] , [facility] 5 16:27:32 Overacti ve urinary bladder 025822532 Active 2024 On meds and followed bu urology. Allison Apodaca MD [address] [facility] [address], [place], [address] , [facility] 5 16:28:20 Problem Notes None recorded. Procedures Surgical History Date Name Laterality Status Provider Name and Address Organization Details Recorded Time 01/17 Most Recent Mammogram completed Shala Nuno [facility] 4 14:14:20 01/17 Mammogram screening completed Shala Nuno [facility] 4 14:14:14 06/14 Date of Last Pap Smear completed Gabriela Mcdonald [facility] 3 13:56:18 01/31 Date of Last Colonoscopy completed Meghasonyail rodolfo Mayo [facility] 1 09:45:40 01/31 colonoscopy completed Iwonavandana Mayo [facility] 1 09:45:35 01/31 esophagogastroduodenoscopy completed Prisc illdanii Mayo [facility] 1 12:05:14 10/07 Cholecystectomy completed Allison Apodaca MD [address] [facility] [address], [facility] [place], [address] , [facility] 8 16:59:05 05/06 Appendectomy completed Jil Manriquez MA [facility] 2 09:33:11 Laparotomy completed Yun Melgar [facility] 9 09:27:24 Cologuard completed Antonia Varela MA [facility] 1 15:12:25 Imaging Results Imaging Date Name Status LastModified by Organiz ation Details LastModified Time 06/27/2024 XR, chest, 2 view completed [facility] (Out[facility] Imaging) [address] [place], [address], 06/27/2024 14:02:45 Procedure Notes None recorded. Medical Equipment None Reported. Allergies Allergen ID Allergen Name Allergen Category Reaction Reaction Severity Criticality Documentation Date Start Date Code Code System Note Provider Name and Address Organization Details Recorded Time Non-stero idal anti-infl ammatory agent (product) medicatio n hives severe Not available 07/06/2014 23150 005 SNOMED Breat randall diffi culty also Yun fermin [facility] 5 09:40:53 00012 Substance with sulfonami de structure and antibacte rial mechanism of action (substanc e) medicatio n hives Not available Not available 01/30/2017 02705 8003 SNOMED Allison martinez MD [address] [address], [facility] 7 18:52:09 51090 acetamino phen / hydrocodo ne medicatio n hives Not available Not available 10/10/2017 19032 2 RxNorm JACKELIN Swanson, [facility] 2 11:35:22 66518 Dilaudid medicatio n rash moderate Not available 10/24/20172017 86808 3 RxNorm CATE Simental, [facility] 8 10:44:22 10393 tetracycl ine medicatio n Not available Not available Not available 09/16/2019 36189 RxNorm Ck Lizbeth-JACKELIN Campa, [facility] 3 15:55:59 46702 polymyxin B medicatio n Not available Not available Not available 09/16/2019 8536 RxNorm Vicki Money zander, [facility] 0 13:35:12 16125 erythromy harry medicatio n Not available Not available Not available 09/16/2019 4053 RxNorm Vicki Money zander, [facility] 0 13:35:12 52178 ibuprofen medicatio n hives Not available Not available 09/16/2019 5640 RxNorm JACKELIN Swanson, [facility] 2 11:35:18 40160 aspirin medicatio n hives Not available Not available 09/16/2019 1191 RxNorm JACKELIN Swanson [facility] 2 11:35:17 17180 naproxen medicatio n Not available Not available Not available 09/16/2019 7258 RxNorm JACKELIN Swanson [facility] 2 11:35:20 71403 lidocaine medicatio n palpitati ons Not available Not available 07/24/2022 6387 RxNorm Ck Lizbeth-JACKELIN Campa, [facility] 3 15:55:53 4149 tetracycl ine hydrochlo ride medicatio n Not available Not available Not available 11/17/2013 54178 6 RxNorm Perlita Rosario MA null, [facility] 2 13:13:09 4150 Tylox medicatio n Not available Not available Not available 11/17/2013 34542 5 RxNorm Baldev Gray, [facility] [address] [facility] [address], [facility] [address] [place] [address] 4 16:48:26 79394 Augmentin medicatio n diarrhea severe Not available 02/18/2023 40429 2 RxNorm ANGELA Alarcon, [facility] 4 08:59:38 Medications Name Sig Start Date Stop Date Status Note LastModified by Organization Details LastModified Time cyclobenz aprine 10 mg tablet Take 1 tablet 3 times a day by oral route as directed for 7 days. 11/23 completed Not Available Not Available Not Available amoxicill in 500 mg capsule 4 caps one hour prior to dental appointm ent active Not Available Not Available No t Available fluconazo le 100 mg tablet TAKE 1 TABLET BY MOUTH EVERY DAY 07/31 completed Not Available Not Available Not Available atorvasta tin 40 mg tablet Take 1 tablet every day by oral route at bedtime. 12/10 completed Not Available Not Available Not Available clotrimaz ole 10 mg kameron 05/30 completed Not Available Not Available Not Available nystatin 100,000 unit/mL oral suspensio n 09/03 completed Not Available Not Available Not Available prednison e 10 mg tablet PLEASE SEE ATTACHED FOR DETAILED DIRECTIO NS active Not Available Not Available No t Available doxycycli ne hyclate 100 mg capsule TAKE 1 CAPSULE BY MOUTH TWICE A DAY FOR 10 DAYS active Not Available Not Available No t Available atorvasta tin 20 mg tablet TAKE 1 TABLET BY MOUTH AT BEDTIME FOR 90 DAYS FOR HYPERLIP IDEMIA STOP SIMVASTA TIN 2024 active Not Available Not Available Not Avai lable albuterol sulfate 2.5 mg/3 mL (0.083 %) solution for nebulizat ion INHALE 1 VIAL VIA NEBULIZE R EVERY 4 TO 6 HOURS NEEDED FOR COUGH/WH EEZE active Not Available Not Available No t Available cefpodoxi me 200 mg tablet Take 1 tablet twice a day by oral route for 10 days. 04/16 completed Not Available Not Available Not Available azithromy harry 250 mg tablet take as directed 06/18 completed Not Available Not Available Not Available tizanidin e 4 mg tablet Take 1 tablet every day by oral route at bedtime for 7 days. 05/03 completed switched to gabapent in Not Available Not Available Not Available fluconazo le 150 mg tablet TAKE 1 TABLET NEEDED BY ORAL ROUTE FOR 2 DAYS. 06/23 completed as needed after abx Not Available Not Available Not Available benzonata te 200 mg capsule Take 1 capsule 3 times a day by oral route for 7 days. active Not Available Not Available No t Available hydrocodo ne 5 mg-acetam inophen 325 mg tablet 11/28 completed Not Available Not Available Not Available fluconazo le 200 mg tablet Take 1 tablet every day by oral route for 14 days. active Not Available Not Available No t Available metronida zole 0.75 % (37.5 mg/5 gram) vaginal gel INSERT 1 APPLICAT ORFUL VAGINALL Y EVERY DAY AT BEDTIME FOR 5 DAYS 05/30 completed Not Available Not Available Not Available ondansetr on HCl 4 mg tablet TAKE 1 TABLET EVERY 6-8 HOURS BY ORAL ROUTE NEEDED FOR 2 DAYS. 07/03 completed Not Available Not Available Not Available prednison e 20 mg tablet TAKE 2 TABLETS BY MOUTH EVERY DAY DIRECTED FOR 5 DAYS 07/10 completed Not Available Not Available Not Available moxifloxa harry 400 mg tablet DAILY 2011 active RECORDED 02/26/20 12 3:26PM BY ELSA VELIZ PA-C, OFFICE VISIT; Not Available Not Available Not Available Protonix 20 mg tablet,de layed release 20 mg by oral route. 05/11 completed Not Available Not Available Not Available Tylenol Arthritis Pain 650 mg tablet,ex tended release Take 2 tablets every 8 hours by oral route as needed. 12/06 completed Not Available Not Available Not Available promethaz ine 6.25 mg-codein e 10 mg/5 mL syrup active Not Available Not Available Not Available acetamino phen 300 mg-codein e 30 mg tablet 03/06 completed Not Available Not Available Not Available amlodipin e 5 mg tablet TAKE 1 TABLET DAILY 01/29 completed Not Available Not Available Not Available hydrocodo ne 10 mg-acetam inophen 325 mg tablet TAKE 1 TABLET BY MOUTH THREE TIMES A DAY FOR 7 DAYS 11/23 completed Not Available Not Available Not Available peg-elect rolyte solution 420 gram oral solution TAKE 8 OUNCES BY MOUTH DIRECTED FOLLOW INSTRUCT IONS GIVEN BY DOCTORS OFFICE 11/23 completed Not Available Not Available Not Available tramadol 50 mg tablet TAKE 1 TO 2 TABLETS BY MOUTH EVERY 6 HOURS NEEDED FOR MILD PAIN. DO NOT EXCEED 8 TABLETS (400MG) PER DAY. DO NOT DRIVE WHILE ON THIS MEDICATI ON 12/06 completed Not Available Not Available Not Available triamcino lone acetonide 0.1 % topical cream APPLY THIN COAT TO AFFECTED AREA TWICE A DAY active Not Available Not Available No t Available amoxicill in 500 mg tablet 06/19 completed Not Available Not Available Not Available simvastat in 40 mg tablet TAKE 1 TABLET DAILY 04/04 completed switchin g to atorvast atin. Not Available Not Available Not Available amoxicill in 875 mg tablet Take 1 tablet every 12 hours by oral route for 7 days. 04/24 completed Not Available Not Available Not Available hydromorp benjamín 2 mg tablet 11/28 completed Not Available Not Available Not Available amlodipin e 5 mg-benaze pril 10 mg capsule TAKE 1 CAPSULE BY MOUTH EVERY DAY FOR 90 DAYS active Not Available Not Available No t Available ciproflox acin 0.3 % eye drops INSTILL 1 DROP INTO AFFECTED EYE(S) BY OPHTHALM IC ROUTE EVERY 2 HOURSWHI LE AWAKE FOR 2 DAYS THEN 1 DROP EVERY 4 HRS WHILE AWAKE FOR 5 DAYS 05/30 completed Not Available Not Available Not Available benzonata te 100 mg capsule TAKE 1 CAPSULE BY MOUTH THREE TIMES A DAY FOR 3 DAYS 07/03 completed Not Available Not Available Not Available ranitidin e 150 mg tablet Take 1 tablet twice a day by oral route for 90 days. 09/15 completed Not Available Not Available Not Available prednison e 50 mg tablet TAKE 1 TABLET BY MOUTH EVERY DAY FOR 5 DAYS 02/05 completed Has not started due to interact ion with other medicati on. Not Available Not Available Not Available lidocaine 5 % topical patch DIRECTED APPLY 1 PATCH TO THE AFFECTED AREA FOR 12HRS AND KEEP PATCH OFF FOR 12 HRS 07/24 completed Not Available Not Available Not Available polymyxin B sulfate 10,000 unit-trim ethoprim 1 mg/mL eye drops QID 06/19 completed Not Available Not Available Not Available docusate sodium 100 mg capsule DIRECTED TAKE 1 CAPSULE BY MOUTH TWICE A DAY. MED TO BE STARTED AFTER SURGERY 12/06 completed Not Available Not Available Not Available omeprazol e 20 mg capsule,d elayed release Take 1 capsule every day by oral route for 90 days. active Not Available Not Available No t Available codeine 10 mg-guaife nesin 100 mg/5 mL oral liquid TAKE 10 ML 3 TIMES A DAY BY ORAL ROUTE NEEDED FOR 4 DAYS. 02/05 completed Not Available Not Available Not Available gabapenti n 100 mg capsule TAKE 1 CAPSULE BY MOUTH THREE TIMES A DAY NEEDED FOR 10 DAYS 07/24 completed Not Available Not Available Not Available Nasonex 50 mcg/actua tion Maybell EACH NOSTRIL ONCE DAILY 02/25 completed RECORDED 02/26/20 12 2:55PM BY STEFFANY ALLRED MA, OFFICE VISIT;NE RADHA PICKED UP Not Available Not Available Not Available levofloxa harry 500 mg tablet TAKE 1 TABLET BY MOUTH EVERY 24 HOURS FOR 5 DAYS 04/04 completed Not Available Not Available Not Available estradiol 0.01% (0.1 mg/gram) vaginal cream USE DIRECTED : 1 GRAM PER VAGINA 3X PER WEEK active Not Available Not Available No t Available levofloxa harry 750 mg tablet DAILY 03/07 completed RECORDED 03/14/20 12 4:23PM BY KASSANDRA HOLLANDC, MEDICATI ON AUTO-KIMMIE CTIVATIO N; Not Available Not Available Not Available methylpre dnisolone 4 mg tablets in a dose pack TAKE 6 TABLETS ON DAY 1 DIRECTED ON PACKAGE AND DECREASE BY 1 TAB EACH DAY FOR A TOTAL OF 6 DAYS 06/23 completed Not Available Not Available Not Available albuterol sulfate HFA 90 mcg/actua tion aerosol inhaler USE 2 INHALATI ONS ORALLY EVERY 4 HOURS NEEDED active Not Available Not Available No t Available Percocet 5 mg-325 mg tablet Take 1 tablet every 6 hours by oral route as needed for 15 days. 04/11 completed Not Available Not Available Not Available ondansetr on 4 mg disintegr ating tablet Place 1 tablet 3 times a day by translin gual route as needed for 5 days. 2023 active Not Available Not Available Not Avai lable fluticaso ne propionat e 50 mcg/actua tion nasal spray,brando pension INHALE 2 SPRAYS IN EACH NOSTRIL DAILY active Not Available Not Available No t Available doxycycli ne hyclate 100 mg tablet TAKE 1 TABLET BY MOUTH TWICE A DAY DIRECTED FOR 10 DAYS 11/16 completed Not Available Not Available Not Available amoxicill in 875 mg-potass ium clavulana te 125 mg tablet Take 1 tablet every 12 hours by oral route for 10 days. 06/21 completed Not Available Not Available Not Available oxycodone 5 mg tablet Take 2 tablets every 6 hours by oral route as directed . 06/13 completed Not Available Not Available Not Available neomycin 3.5 mg/g-poly myxin B 10,000 unit/g-de xameth 0.1 % eye oint APPLY TO LEFT EYE 3 TIMES A DAY FOR 10 DAYS 07/03 completed Not Available Not Available Not Available Bactrim DS 800 mg-160 mg tablet Take 1 tablet twice a day by oral route as directed for 14 days. 03/23 completed Not Available Not Available Not Available albuterol (refill) 90 mcg/actua tion aerosol inhaler EVERY FOUR HOURS, NEEDED 2011 active RECORDED 10/23/19 13 3:36PM BY YUN SAVAGE I, OFFICE VISIT; Not Available Not Available Not Available amlodipin e 10 mg-benaze pril 20 mg capsule Take 1 capsule every day by oral route for 90 days. 03/17 completed Not Available Not Available Not Available escitalop alexandrea 10 mg tablet TAKE 1 TABLET DAILY active Not Available Not Available No t Available cyclobenz aprine 5 mg tablet Take 1 tablet 3 times a day by oral route as needed for 10 days. 04/24 completed Not Available Not Available Not Available omeprazol e magnesium 20 mg tablet,de layed release Take 1 tablet every day by oral route. 05/27 completed Not Available Not Available Not Available tiotropiu m bromide 18 mcg capsule with inhalatio n device DAILY 07/08 completed RECORDED 07/09/19 13 8:52AM BY LEONORA OLMOS, OFFICE VISIT; Not Available Not Available Not Available nitrofura ntoin monohydra te/macroc rystals 100 mg capsule TAKE 1 CAPSULE BY MOUTH EVERY 12 HOURS FOR 7 DAYS 04/16 completed Not Available Not Available Not Available duloxetin e 30 mg capsule,d elayed release TAKE 1 CAPSULE BY MOUTH EVERY DAY active Not Available Not Available No t Available Flovent HFA 110 mcg/actua tion aerosol inhaler Inhale 1 puff twice a day by inhalati on route for 30 days. 09/15 completed Not Available Not Available Not Available BuSpar 10 mg. 03/10 completed Not Available Not Available Not Available Flexeril 10 mg. 01/23 completed Not Available Not Available Not Available amlodipin e 10 mg-benaze pril 40 mg capsule TAKE 1 CAPSULE BY MOUTH EVERY DAY FOR 90 DAYS 2024 active Not Available Not Available Not Avai lable cephalexi n 750 mg capsule Take 1 capsule twice a day by oral route for 7 days. 03/06 completed Not Available Not Available Not Available Oravig [address] 1 MUCO EVERY DAY BY BUCCAL ROUTE DIRECTED FOR 10 DAYS. active Not Available Not Available No t Available loratadin e 10 mg capsule Take 1 capsule as needed by oral route. active RECORDED 10/23/19 13 3:36PM BY YUN SAVAGE I, OFFICE VISIT; Not Available Not Available Not Available OptiChamb er Queta [facility] spacer USE DIRECTED WITH INHALERS active Not Available Not Available No t Available mirabegro n ER 25 mg tablet,ex tended release 24 hr TAKE 1 TABLET BY MOUTH EVERY DAY active Not Available Not Available No t Available EpiPen 2-Jesu 0.3 mg/0.3 mL injection , auto-inje ctor Take 1 auto every day by injectio n route for 1 day. 03/03 completed Not Available Not Available Not Available Eliquis 2.5 mg tablet TAKE 1 TABLET BY MOUTH TWO TIMES A DAY FOR 30 DAYS 12/06 completed Not Available Not Available Not Available Multi Vitamin take 1 tab daily po 01/18 completed Not Available Not Available Not Available Afluria (PF) 45 mcg (15 mcg x 3)/0.5 mL IM syringe active Not Available Not Available Not Available Fluarix Quad 7830-7153 (PF) 60 mcg (15 mcg x 4)/0.5 mL IM syringe 06/19 completed Not Available Not Available Not Available Fluarix Quad 9393-0740 (PF) 60 mcg (15 mcg x 4)/0.5 mL IM syringe 01/30 completed Not Available Not Available Not Available Readi-Cat 2 2 % (w/v) oral suspensio n Take 450 mL twice a day by oral route as directed for 1 day. 06/18 completed Not Available Not Available Not Available Wixela Inhub 250 mcg-50 mcg/dose powder for inhalatio n active Not Available Not Available Not Available Flucelvax Quad (PF) 60 mcg (15 mcg x 4)/0.5 mL IM syringe 09/15 completed Not Available Not Available Not Available Afluria Qd 2019- (36 mos up)(PF)60 mcg (15 mcg x4)/0.5 mL IM syringe PHARMACY ADMINIST ERED 03/04 completed Not Available Not Available Not Available Paxlovid 300 mg (150 mg x 2)-100 mg tablets in a dose pack TAKE 3 TABLETS BY MOUTH TWICE A DAY DIRECTED FOR 5 DAYS 02/13 completed Not Available Not Available Not Available Breyna 160 mcg-4.5 mcg/actua tion HFA aerosol inhaler USE 2 INHALATI ONS ORALLY TWICE DAILY active Not Available Not Available No t Available Vitals Date Recorded Body height Body mass index (BMI) Body weight Heart rate Oxygen saturation Oxygen saturation in Arterial blood by Pulse oximetry Body temperature Systolic blood pressure Diastolic blood pressure Provider Name and Address Organization Details Last Updated DateTime 4 158.75 cm 33.1 kg/m2 48223 g 67 /min 98 % 98 % 97.6 [degF] 120 mm[Hg] 71 mm[Hg] Ck friedman MA [facility] 4 13:15:33 Date Recorded Body height Provider Name an d Address Organization Details Last Updated DateTime 04/16/2024 158.75 cm Ck Rivera MA [facility] 04/16/2024 14:07:07 Date Recorded Body height Body mass index (BMI) Body weight Heart rate Oxygen saturation Oxygen saturation in Arterial blood by Pulse oximetry Body temperature Systolic blood pressure Diastolic blood pressure Provider Name and Address Organization Details Last Updated DateTime 5 158.75 cm 34.9 kg/m2 56731.9 2 g 75 /min 98 % 98 % 98.4 [degF] 119 mm[Hg] 72 mm[Hg] Ck friedman MA [facility] 5 10:55:01 Date Recorded Body height Body mass index (BMI) Body weight Heart rate Oxygen saturation Oxygen saturation in Arterial blood by Pulse oximetry Body temperature Systolic blood pressure Diastolic blood pressure Provider Name and Address Organization Details Last Updated DateTime 5 158.75 cm 34.4 kg/m2 65727.1 4 g 81 /min 97 % 97 % 98.5 [degF] 158 mm[Hg] 91 mm[Hg] Dariela Rios MA [facility] 5 14:55:39 Date Recorded Body height Body mass index (BMI) Body weight Heart rate Oxygen saturation Oxygen saturation in Arterial blood by Pulse oximetry Body temperature Systolic blood pressure Diastolic blood pressure Provider Name and Address Organization Details Last Updated DateTime 5 158.75 cm 34.4 kg/m2 27025.1 4 g 106 /min 96 % 96 % 98.1 [degF] 148 mm[Hg] 89 mm[Hg] Dariela Rios MA [facility] 5 10:55:25 Social History Question Answer Notes LastModified by Organizat ion Details LastModified Time Tobacco Smoking Status Former Smoker quit in 2009 Not Available [facility] 03/08/2020 03:36:34 Do You Have An Advance Directive? Yes [email or web address] Information not available 02/05/2022 What Is Your Level Of Alcohol Consumption? Occasional Wine [id number] Information not available 03/08/2020 Is Blood Transfusion Acceptable In An Emergency? Yes [id number] Information not available 03/08/2020 What Is Your Level Of Caffeine Consumption? None Information not available 01/24/2022 How Much Tobacco Do You Chew? None [id number] Information not available 03/08/2020 Are You Currently Employed? Yes [id number] Information not available 03/08/2020 What Type Of Diet Are You Following? REGULAR [id number] Information not available 03/08/2020 Which Illicit Or Recreational Drugs Have You Used? None [id number] Information not available 03/08/2020 Do You Or Have You Ever Used E-cigarettes Or Vape? 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 Information not available 01/24/2022 When Did You Quit Smoking? 11-15yearssincel sarah amaya Information not available 11/23/2020 Live Alone Or With Others? With Others Boyfriend [email or web address] Information not available 02/05/2022 Do You Take Precautions To Prevent Distracted Driving? Yes Information not available 07/27/2015 How Often Do You Need To Have Someone Help You When You Read Instructions, Pamphlets, Or Other Written Material From Your Doctor Or Pharmacy? Never Information not available 07/27/2015 Have You Served In The ? No Information not available 07/31/2016 Have You Or Anyone In Your Household Had Any Of The Following Symptoms In The Last 14 Days: Sore Throat, Cough, Chills, Body Aches For Unknown Reasons, Shortness Of Breath For Unknown Reasons, Loss Of Smell, Loss Of Taste, Fever At Or Greater Than 100 Degrees Fahrenheit? No Information not available 03/04/2020 Are You Or Anyone In Your Household A Health Care Provider Or Emergency Responder? No Information not available 03/04/2020 To The Best Of Your Knowledge Have You Been In Close Proximity To Any Individual Who Tested Positive For COVID-19? No Information not available 03/04/2020 *AWV ONLY* Are You Presently Prescribed Opioid Medication By PCP Or Specialist? If YES -Provider Assess The Benefit For Other, Non-opioid Pain Therapies Instead, Even If The Patient Does Not Have OUD But Is Possibly At Risk. No Information not available 11/23/2020 Have You Recently Traveled To A COVID-19 High Risk Area Or Gathering In The Last 10 Days? No Information not available 05/27/2020 What Was The Date Of Your Most Recent Tobacco Screening? 06/13/2024 Information not available 06/13/2024 How Many Children Do You Have? 4 2 Sons And 2 Daughters 1 Daughter In [place] 1 Son In [place] 2 Grandchildren (1 Girl And 1 Boy) [email or web address] Information not available 01/24/2022 What Is Your Current Pack Years? 30ormorepackyear s [email or web address] Information not available 02/05/2022 Do You Use Protection During Sex? No [id number] Information not available 03/08/2020 Do You Use Your Seat Belt Or Car Seat Routinely? Yes Information not available 01/24/2022 Seat Belts Used Routinely Yes [email or web address] Information not available 02/05/2022 Are You Sexually Active? Yes [id number] Information not available 03/08/2020 Smoke Alarm In Home Yes Information not available 02/05/2022 Do You Have Smoke And Carbon Monoxide Detectors In Your Home? Yes Information not available 01/24/2022 At What Age Did You Start Smoking Tobacco? 15 In 1975 [id number] Information not available 03/08/2020 Are You Passively Exposed To Smoke? No Information not available 07/31/2016 Do You Or Have You Ever Used Smokeless Tobacco? Never Used Smokeless Tobacco [id number] Information not available 03/08/2020 How Much Tobacco Do You Smoke? 1 PPD [id number] Information not available 03/08/2020 Do You Use Any Illicit Or Recreational Drugs? No [email or web address] Information not available 02/05/2022 Do You Use Sunscreen Routinely? Yes [id number] Information not available 03/08/2020 How Many Years Have You Smoked Tobacco? 34 Information not available 11/23/2020 Do You Or Have You Ever Used Any Other Forms Of Tobacco Or Nicotine? No [email or web address] Information not available 02/05/2022 Sex: Unknown Functional Status Question Answer Note LastModified by Organizat ion Details LastModified Time Are you able to walk? YESWOREST [email or web address] Information not available 02/05/2022 Are you able to care for yourself? Yes [id number] Information not available 03/08/2020 What is your exercise level? None due to hip pain Information not available 07/24/2022 Mental Status None recorded. Family History Relationship Description Onset Age of this Age Resolved Age Notes LastModified by Organization Details LastModified Time Mother Malignant tumor of breast 78 metast atic [email or web address] Not available 07/27/2015 15:22:20 Brother Crohn's disease 46 [email or web address] Not available 02/05 09:18:09 Father Alzheimer's disease 80 [email or web address] Not available 07/26 15:22:20 Sister Irritable bowel syndrome [email or web address] Not available 02/05 09:18:09 Sister Crohn's disease [email or web address] Not available 02/05 09:18:09 Sister Asthma [email or web address] Not availabl e 02/04/2024 16:13:51 Son Crohn's disease [email or web address] Not available 02/05 09:18:09 Unspecified Relation Crohn's disease [email or web address] Not available 02/05 09:18:09 Notes:2 sisters and 1 brothe r (brother ; she's in the middle). Medical History Condition Response Gout N Other N Kidney Stones N Blood Diseases N Hyperthyroidism N Breast Cancer N COPD N Depression N Lung Disease N Hypothyroidism N Defects or Inherited Disease N Anesthesia Complications N Headaches/Migraines N Anxiety Disorder N Varicose Veins N Obesity N Vision or Eye Problems N Arthritis Y Head Injury/Concussion N Polyps N Infertility N Congenital Anomalies N Acid Reflux (GERD) Y Cancer N Stroke N ADHD N Endometriosis Y High Cholesterol Y Liver Disease N Fibromyalgia N Kidney Disease N Heart Problems N Ear or Hearing Problems N Hospitalizations N Thyroid Problems N GI Problems Y Acne N Eating Disorder N Skin Problems N Anemia N Constipation N Bladder Problems N Mental Illness N Diabetes N Ovarian Cancer N Blood Transfusions N Seizures/Epilepsy N Tuberculosis N AIDS/HIV N Congestive Heart Failure (CHF) N Eczema Y Abuse/Domestic Violence N Diverticulitis N Asthma Y Allergies Y Reflux/GERD N Hepatitis N Pulmonary Embolism N Hypertension N Chicken Pox N Autism Spectrum Disorder (ASD) N Osteoporosis N Gynecological History Statement/Question Response Date of Last Colonoscopy 01/31/2021 Sexually Active? Y Menses Monthly N Date of Last Pap Smear 06/14/2022 Sexual Problems? N Most Recent Mammogram 01/18/2024 LMP Unknown Desired Control Method N/A Obstetrics History GPAL:G 0 P 4 0 0 4 Type Value Full Term 4 Living 4 Immunizations Vaccine Type Date Status Note Provider Nam e and Address Organization Details Recorded Time Influenza, split virus, trivalent, PF 5 completed Iwona fermin [facility] 03/10/2021 14:23:35 Influenza, split virus, quadrivalent, preservative 6 completed Not Available [facility] 04/04/2023 08:38:45 Influenza, split virus, quadrivalent, PF 6 completed JACKELIN Swanson [facility] 02/05/2022 11:35:05 Influenza, split virus, quadrivalent, PF 7 completed JACKELIN Swanson [facility] 02/05/2022 11:35:05 Influenza, MDCK, quadrivalent, PF 9 completed JACKELIN Lundy [facility] 04/10/2021 09:32:02 Influenza, split virus, quadrivalent, preservative 0 completed Not Available [facility] 04/04/2023 08:38:45 COVID-19, mRNA, LNP-S, PF, 30 mcg/0.3 mL dose 1 completed JACKELIN Lundy [facility] 04/10/2021 09:32:02 COVID-19, mRNA, LNP-S, PF, 30 mcg/0.3 mL dose 1 completed JACKELIN Lundy [facility] 04/10/2021 09:32:02 COVID-19, mRNA, LNP-S, PF, 100 mcg/0.5mL dose or 50 mcg/0.25mL dose 1 completed JACKELIN Swanson [facility] 02/05/2022 11:35:05 Influenza, split virus, quadrivalent, PF 1 completed JACKELIN Lundy [facility] 04/10/2021 09:32:02 Influenza, split virus, quadrivalent, PF 0 completed JACKELIN Lundy [facility] 04/10/2021 09:32:02 Novel [id number], preservative-free 9 completed JACKELIN Lundy [facility] 04/10/2021 09:32:02 Influenza, split virus, trivalent, preservative 5 completed JACKELIN Lundy [facility] 04/10/2021 09:32:02 pneumococcal polysaccharide PPV23 7 completed JACKELIN Lundy [facility] 04/10/2021 09:32:02 Influenza, split virus, trivalent, preservative 1 completed JACKELIN Lundy [facility] 04/10/2021 09:32:02 Influenza, split virus, trivalent, preservative 0 completed JACKELIN Lundy [facility] 04/10/2021 09:32:02 Influenza, split virus, trivalent, preservative 9 completed JACKELIN Lundy [facility] 04/10/2021 09:32:02 Td (adult), 2 Lf tetanus toxoid, preservative free, adsorbed 4 completed JACKELIN Lundy [facility] 04/10/2021 09:32:02 Influenza, split virus, trivalent, preservative 6 completed JACKELIN Lundy, [facility] 04/10/2021 09:32:02 pneumococcal polysaccharide PPV23 8 completed JACKELIN Swanson, [facility] 02/05/2022 11:35:05 Influenza, split virus, quadrivalent, PF 8 completed JACKELIN Swanson, [facility] 02/05/2022 11:35:05 Influenza, split virus, trivalent, PF 4 completed JACKELIN Swanson, [facility] 02/05/2022 11:35:05 Influenza, split virus, quadrivalent, PF 2 completed JACKELIN Swanson, [facility] 02/05/2022 11:35:05 influenza, seasonal, intradermal, preservative free 2 completed Iwona fermin, [facility] 03/10/2021 14:23:35 Tdap 3 completed JACKELIN Lundy, [facility] 04/10/2021 09:32:02 pneumococcal polysaccharide PPV23 3 completed Iwona fermin, [facility] 03/10/2021 14:23:35 Influenza, split virus, quadrivalent, PF 3 completed Allison Apodaca MD [address], [address], [facility] 01/30/2023 12:43:57 Td (adult), 2 Lf tetanus toxoid, preservative free, adsorbed 3 completed Allison Apodaca MD [address], [address], [facility] 01/30/2023 12:43:57 Influenza, split virus, trivalent, PF 4 completed Jamin Gong PA-C [address] [place], [address], [facility] 01/13/2024 19:55:47 Past Encounters Encounter ID Performer Location Encounter Start Date Encounter Closed Date Diagnosis/Indication Diagnosis SNOMED-CT Code Diagnosis ICD10 Code Diagnosis Note [id number] auto[facility]Comm erce [address] [facility] [place] [id number] 11/06/2011 00:00:00 [id number] autoEComm erce [address] [facility] [place] [address] 02/05/2012 00:00:00 [id number] autoEComm erce [address] [facility] [place] [address] 02/26/2012 00:00:00 [id number] autoEComm erce [address] [facility] [place] [address] 03/14/2012 00:00:00 [id number] autoEComm erce [address] [facility] [place] [address] 05/08/2012 00:00:00 [id number] autoEComm erce [address] [facility] [place] [id number] 07/08/2012 00:00:00 [id number] autoEComm erce [address] [facility] [place] [address] 09/10/2012 00:00:00 [id number] autoEComm erce [address] [facility] [place] [address] 10/02/2012 00:00:00 [id number] autoEComm erce [address] [facility] [place] [address] 10/22/2012 00:00:00 [id number] CANDICE Ordonez Main Office [address] [facility] [address] [place] [address] 02/08/2014 08:11:50 02/08/2014 09:37:08 Postmenopausal bleeding [id number] We will schedule [employer] appt for pt for further eval. Needs infl uenza immunization [id number] Ruma barnett MD Main Office [address] [address] [place] [address] 03/27/2014 09:41:05 03/27/2014 10:39:57 Low back pain [id number] 5 days of pain without obvious cause, hx of disc herniation 2001 with steroid injections . pt to take meds belwo and see [facility], needs PT, strengthen ing in core adn exercise, if all else fails discussed breast reduction as possible helping [id number] Allison Apodaca MD Main Office [address] [address] [place] [address] 04/26/2014 16:06:58 04/26/2014 16:45:46 Sciatica [id number] this was probably brought on by being in the lithotomy position during an extended period during her [employer] procedure. She has improved. No further w/u needed and she [facility] [id number] Allison Apodaca MD Main Office [address] [address] [place] [address] 07/06/2014 09:25:20 07/06/2014 10:32:19 Adult health examination [id number] Tinea pedis 4428415 she thought this was eczema and she used a steroid cream on the area w/o much help. She will try OTC clotrimazo le for fungal rash and will call here or make a derm appointmen t if it persists. [id number] Allison Apodaca MD Main Office [address] [address] [place] [address] 07/27/2015 15:03:35 07/27/2015 16:03:20 Pure hypercholesterolemia 682630288 E78.0 Adult heal th examination 090131352 Z00.00 Obstructiv e sleep apnea syndrome 65539502 G47.33 [id number] Jamin Gong PA-C Main Office [address] [address] [place] [address] 06/19/2016 11:29:04 06/19/2016 12:44:51 Pneumonia 306196774 J18.9 finish abx as directed. pt requests oow note for the rest of the week. will attempt to get formal cxr report Sinusitis 41429354 J32.9 see below - can add on 3 add'l days of rx if warranted Asthma 795185296 J45.31 see below 25 minute office visit with greater than 50% of the visit face-to-fa ce with the patient and/or family providing counseling and/or coordinati on of care. [id number] Allison Apodaca MD Main Office [address] [address] [place] [address] 07/31/2016 09:50:51 07/31/2016 11:06:46 Adult health examination 201709019 Z00.00 She is UTD with immunizati ons, colonoscop y and [employer] care Hyperlipidemia 25727303 E78.5 Wants to try a different med at a lower dose. Will change from simvastati n to atorvastat in Pain of ri ght hip joint 9930428707 20886 M25.551 Community acquired pneumonia 451805630 J18.9 This may not have been pneumonia given her lack of fever and equivocal xray findings. Will check for resolution . She however states that she has had multiple episodes of CAP in the past. Skin lesion 89924368 L98 .9 [id number] Victor M martinez MD Main Office [address] [address] [place] [address] 10/09/2016 15:09:15 10/09/2016 15:48:49 Dysuria 63774188 R30.0 [id number] Allison Apodaca MD Main Office [address] [address] [place] [address] 01/30/2017 12:39:12 01/30/2017 13:23:46 Abscess 153705820 L02.91 [id number] Jamin Gong PA-C Main Office [address] [address] [place] [address] 03/06/2017 08:43:22 03/06/2017 10:01:01 Dysuria 43266470 R30.0 will check c+s -- ? sxs complicate d by underlying constipati on Acute low back pain 1098 62990 M54.5 ? upper lumbar herniated disc radiating to R flank, but see below pt requests oow note - worried about going to wedding this w/e too Right flank pain 8554026 09 R10.9 no h/o kidney stones and no cvat - suspicious for radiculopa thy and / or constipati on Lumbosacra l radiculitis 36143077 M54.17 Constipation 89733716 K5 9.00 [id number] Jamin Gong PA-C Main Office [address] [address] [place] [address] 03/11/2017 08:39:16 03/11/2017 09:38:56 Low back pain 830550091 M54.5 better, cont hep and prn m. 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 Continue ProAir HFA 90 mcg inhaler as needed Upper resp iratory infection 77397133 J06.9 Continue tylenol cold and congestion as neededReco mmend saline nasal washesFoll ow up in 2 weeks, consider ABX if no improvemen t of symptoms or worsening of symptoms Elevated blood-pressure reading without diagnosis of hypertension 384479527 R03.0 Possibly due to OTC meds. Recommende d to test BP at home after URI resolved. [id number] Anisha Gong PA-C Main Office [address] [address] [place] [address] 04/24/2017 15:09:28 04/24/2017 16:45:27 Moderate persistent asthma 827072259 J45.40 IMproved now with Symbicort. Advised to continue medication and use rescue PRN> Elevated blood-pressure reading without diagnosis of hypertension 625097692 R03.0 Avoid OTC meds /stimulant s. Check BP weekly. Reports if over 140/90. DEcrease sodium aaaadn caffeine. [id number] Allison Apodaca MD Main Office [address] [address] [place] [address] 08/01/2017 09:31:25 08/01/2017 10:36:18 Adult health examination 427035219 Z00.00 She is UTD with immunizati ons, colonoscop y and [employer] care Hyperlipidemia 50747932 E78.5 Tolerating the simvastati n. Will check fasting lipid level Asthma 072381283 J45.90 9 Good control with current mgmt. Rarely uses her rescue inhaler Impacted c erumen of bilateral ears 4689550291 329145 H61.23 Administra tion of pneumococcal vaccine 23046086 Z23 [id number] Anisha Gong PA-C Main Office [address] [address] [place] [address] 09/16/2017 13:41:07 09/16/2017 15:09:51 Rib pain 613168788 R07.81 Take Tylenol ES 500 mg every 4 hours as needed for pain. Rest and avoid lefting heavy objects. Follow up if no improvemen t in symptoms or symptoms get worse. Dyspnea 492316709 R06.00 might be related to rib pain. [id number] Allison Apodaca MD Main Office [address] [address] [place] [address] 10/24/2017 14:18:27 10/24/2017 15:39:35 Essential hypertension 21421743 I10 She is not on meds but her BP has been high the last couple of visits. She will work on lifestyle changes and return in 1 month. Panic attack 587010714 F 41.0 Her lightheade dness may be related to BP vs panic attacks. Lightheadedness 04692688 8 R42 Screening for malignant neoplasm of colon 142920086 Z12.11 Mesenteric lymphadenopathy 672201288 I88.0 Described as nonspecifi c. Will refer for a colonoscop y and will repeat the CT scan in late December or January. [id number] Allison Apodaca MD Main Office [address] [address] [place] [address] 11/28/2017 08:51:37 11/28/2017 09:32:11 Essential hypertension 08239029 I10 BP continues to run high so will start a med and she will continue with lifestyle changes. Asthma 173927869 J45.90 9 Good control with current mgmt. Rarely uses her rescue inhaler Cough 87055425 R05 She will continue with her asthma treatment and no specific treatment is needed for her cough. [id number] Ruma barnett MD Main Office [address] [place] [address] 12/06/2017 14:53:08 12/06/2017 15:37:21 Cough 67416273 R05 see below, will tx with levaquin and inhalers Moderate asthma 82532456 9 J45.901 asthma flare due to infectious component, will hold off on prednisone due to levaquin and risk of achilles tendonitis , return if not improving Acute sinusitis 10286501 J01.90 tx as below [id number] Allison Apodaca MD Main Office [address] [place] [address] 01/07/2018 09:56:58 01/07/2018 10:37:22 Asthma 339834810 J45.909 Good control with current mgmt. Rarely uses her rescue inhaler Needs infl uenza immunization 720828104 Z23 Essential hypertension 85122345 I10 BP under good control; continue current mgmt. CT of abdo men abnormal 8411991881 3615828 R93.5 [id number] Jamin Gong PA-C Main Office [address] [address] [place] [address] 02/17/2018 13:42:56 02/17/2018 14:42:00 Cough 29490533 R05 check cxr to r/o pna - will rx c abx if + Asthma 606012028 J45.40 see below 25 minute office visit with greater than 50% of the visit face-to-fa ce with the patient and/or family providing counseling and/or coordinati on of care. Essential hypertension 27758616 I10 stable, cont med as dir Viral uppe r respiratory tract infection 799979075 J06.9 [id number] Woo Houston MD Main Office [address] [place] [address] 06/18/2018 13:55:05 06/18/2018 14:50:03 Acute pharyngitis 296270990 J02.9 Sinusitis 84498308 J32.9 see below - can add on 3 add'l days of rx if warranted rec probiotic while on abx - then continue as has had some problems c belching Asthma 830975067 J45.40 lungs clear today so doubt pna 25 minute office visit with greater than 50% of the visit face-to-fa ce with the patient and/or family providing counseling and/or coordinati on of care. Essential hypertension 15244514 I10 asymptomat ic - but trending low - advised pt to simply cut 5mg norvasc in 1/2 to 2.5mg qd - cont to monitor at home - if gets > 140 then resume full 5mg tab - next f/u c pcp already scheduled for 4.1.19 Abdominal bloating 99499 9008 R14.0 rec change prn tums to prn tums anti-gas [id number] Allison Apodaca MD Main Office [address] [place] [address] 09/18/2018 12:43:03 09/18/2018 13:37:24 Pain of right hip joint 9988937267 73084 M25.551 Possible groin pull vs inguinal hernia. [id number] Allison Apodaca MD Main Office [address] [place] [address] 01/21/2019 09:17:48 01/21/2019 10:33:25 Adult health examination 537953726 Z00.00 She is UTD with immunizati ons and [employer] care. Colonoscop y is due next year. Screening for malignant neoplasm of colon 415201574 Z12.11 Moderate p ersistent asthma 011383819 J45.40 Will stop symbicort at her request since she feels that it is not helping. Essential hypertension 90889026 I10 BP under good control; continue current mgmt. Arthritis of right hip 3841545413 370677 M13.851 She is considerin g an injection and will call [facility] to schedule an appointmen t. [id number] Allison Apodaca MD Telehealt h [address] [facility] [address] [place] [address] 09/16/2019 08:09:32 09/16/2019 09:58:29 Essential hypertension 91776626 I10 BP running high. She will increase her amlodipine from 2.5 to 5 mg. Asthma 643429877 J45.90 9 Good control with current mgmt. Rarely uses her rescue inhaler. She will stop her symbicort when allergy season as passed. Hyperlipidemia 84076993 E78.5 Tolerating the simvastati n. Will check fasting lipid level at Gastroop hageal reflux disease 256567109 K21.0 This has improved since changing her diet and currently no taking any meds. Cough 78066583 R05 She will continue with her asthma treatment. We will also check her for COVID since this cough is different from her usual cough. Also with MEJIA. Exposure t o viral disease 3360223941 29723 Z03.818 Dry cough and MEJIA. [id number] Ruma barnett MD [facility] [address] [facility] [address] [place] [address] 03/04/2020 06:16:17 03/04/2020 13:49:53 Muscle pain 48194758 M79.10 Has new muscle pain in her legs, will do some labs to see if related to statin. If negative, pt needs to come in to the office to have legs evaluated Essential hypertension 62893985 I10 BP running ok on current med, if leg pain persists to be seen in office, told CCB can cause some peripheral edema. Hyperlipidemia 45275193 E78.5 labs to assess statin dose Moderate p ersistent asthma 586024207 J45.40 continue with baseline inhalers, call if any worsening sx. Counseling 668605746 Z71 .9 Health advice, education or counseling done for COVID 19 Exposure t o viral disease 3178423256 90853 Z20.828 Pt will get tested at [facility] today or tomorrow, needs to quarantine at home until the results come back. No work until a negative test result [id number] Ruma barnett MD [facility] [address] [facility] [address] [place] [address] 05/27/2020 14:21:33 05/30/2020 13:52:12 Cough 16204706 R05 otc cough med prn, stay on inhalers and if not improving may need steroid taper. Ok to have covid vaccine in a few weeks if feeling better. Exposure t o viral disease 2763893586 28852 Z20.828 Due to cough need covid testing. She needs to quarantine at home until the results come back. No work until a negative test result. Pt having vaccine on 06/10/20, no allergy to toradol but is allergic to asa and nsaid. Allergy to toradol is contraindi cation to covid vaccine due to preservati ve in toradol and not the nsaid component. Pneumonia 823191855 J18. 9 Rest, start antibiotic s and can use otc cough med as needed, stay on current inhalers. Call if not improving within a few days to a week, sooner if worsening. . [id number] Allison Apodaca MD [facility] [address] [facility] [address] [facility] [place] [address] 06/06/2020 06:58:00 06/06/2020 12:06:31 Essential hypertension 51091194 I10 BP running high. She will increase her amlodipine from 2.5 to 5 mg. Gastroesop hageal reflux disease 755603453 K21.9 Still with symptoms despite PPI. Advised taking it twice daily, we discussed losing weight and also putting blocks under the head of the bed. [id number] Allison Apodaca MD Main Office [address] [facility] [address] [facility] [place] [address] 07/07/2020 15:41:08 07/07/2020 16:34:44 Dysuria 84816130 R30.9 Actually nondescrip t abdominal pain that is difficult for her to localize. No evidence for an infection on urine dip. Will send culture. Rib pain 240686133 R07.8 1 Xray done and no fracture noted. Upper abdominal pain 831 84084 R10.10 Already had her gallbladde r removed. Doubt GERD since pain is not epigastric and is not related to meals although the pain is worse at night. We will get a CT scan and refer her to GI for further evaluation . [id number] Allison Apodaca MD Main Office [address] [address] [place] [address] 11/08/2020 14:56:04 11/08/2020 15:51:36 Dysuria 23140660 R30.9 Actually nondescrip t abdominal pain that is difficult for her to localize. No evidence for an infection on urine dip. Will send culture. Low back pain 731118926 M54.5 Possibly muscular pain. Flexeril has not been helping and cannot take NSAIDs. Kidney stones are a possibilit y but less likely because pain is bilateral. Gallbladde r removed so not in the differenti al. [id number] Allison Apodaca MD Main Office [address] [address] [place] [address] 11/23/2020 15:02:49 11/23/2020 16:05:25 Adult health examination 877657298 Z00.00 She is UTD with immunizati ons and [employer] care. Had colonoscop y done at [facility]. Due for a repeat. Varicella vaccination 68 609643 Z23 Advised to get this at her pharmacy. Anxiety state 483822880 F41.1 Essential hypertension 96403876 I10 Good control; continue current mgmt. Screening for malignant neoplasm of colon 523759024 Z12.11 [id number] Allison Apodaca MD Main Office [address] [address] [place] [address] 04/10/2021 09:22:13 04/10/2021 10:24:37 Preseptal cellulitis 347393656 L03.213 [id number] Allison Apodaca MD Main Office [address] [address] [place] [address] 05/30/2021 08:12:53 06/01/2021 12:15:38 Hypertensive renal disease 57190163 I12.9 She will increase her amlodipine from 2.5 mg to 5 mg daily. Nasal congestion 1024233 0 R09.81 She will try saline nasal spray at first and if that doesn't help she will change to a steroid nasal spray. Chronic ki dney disease stage 2 463535374 N18.2 [id number] Allison Apodaca MD [facility] [address] [place] [address] [place] [address] 06/22/2021 10:53:12 06/23/2021 11:07:16 Hypertensive renal disease 86233800 I12.9 She is tolerating the increased dose of amlodipine and will call us tomorrow with her BP reading. Allergic rhinitis 347390 04 J30.9 She will change her nasal spray to see if this works better than the flonase and is not as drying. Her symptoms may be from the environmen t at work. Chronic ki dney disease stage 2 412223428 N18.2 [id number] Allison Apodaca MD [facility] [address] [facility] [address] [facility] [place] [address] 01/18/2022 08:24:21 01/22/2022 09:43:10 COVID-19 421435431 U07.1 She understand s that she should hold her simvastati n while taking the paxlovid. Exacerbati on of intermittent asthma 769785150 J45.21 [id number] Allison Apodaca MD Main Office [address] [facility] [address] [facility] [place] [address] 01/24/2022 09:17:55 01/24/2022 10:14:17 Adult health examination 069840067 Z00.00 She is UTD with immunizati ons and [employer] care. Had a colonoscop y in [address] Holder and due again in 2030. Needs infl uenza immunization 295442363 Z23 Hyperlipidemia 00144826 E78.5 Tolerating the simvastati n. Will check fasting lipid level. Asthma 884638229 J45.90 9 Generally good control with current mgmt. Rarely uses her rescue inhaler. She will stop her symbicort when allergy season as passed. If wheezes persists she will do a course of prednisone which she has at home. Chronic ki dney disease stage 2 633272094 N18.2 Hypertensi ve renal disease 04334769 I12.9 She is tolerating the increased dose of amlodipine and will call us tomorrow with her BP reading. History of SARS-CoV-2 29 91989324 22318673 Z86.16 Still with cough and fatigue. Has been vaccinated and boosted. [id number] Woo Houston MD Main Office [address] [facility] [address] [place] [address] 02/05/2022 09:17:37 02/05/2022 13:05:25 Acute sinusitis 14284250 J01.90 Given second sickening symptoms since COVID 19 last month there is a good chance for a bacterial sinusitis. Allergies limits options but she was willing to retry Augmentin even though it afforded GI upset in the past. Advised to take with probiotic and food and call with any problems. Consider course of steroids inb/worse with abx alone or if asthma starts to flare. Asthma 095037464 J45.40 [id number] CHLOÉ CHAVEZ MD Main Office [address] [facility] [address] [place] [address] 04/19/2022 14:47:11 04/19/2022 15:43:52 Dysuria 77744439 R30.0 - pt complainin g of foul smelling urine and increased urinary frequency- urine dip stick showing moderate leukocytes - will send for UA and urine culture- pt was started on macrobid, will check urine culture for sensitivit ies. Pain of mu ltiple joints 12792680 M25.50 - pt has been having pain in her left hip, right hip, left foot and left leg- believe etiology most likely MSK> pt has history of right hip arthritis for which she gets cortisone shots> pt mentions the same problem developed on the left hip and appears to be having a flare> pt also has left sided plantar fascitis, not compliant with exercises- will try obtain most recent [facility] for patient's left sided hip pain- due to patient different joint pain will check for other possible causes- will check for inflammato ry markers- will check for any type of rheumatolo gical disorders Edema of l ower extremity 468279911 R60.0 - pt having increased tightness and edema in the left lower extremity- ordered doppler studies to ensure no DVT Pain of le ft hip joint 0029836695 90486 M25.552 - most likely due to OA- pt is currently on lidocaine patches- pt was given tizanidine however patient did not start medication yet because she was nervous- pt was also started on meloxicam however she is allergic- gave patient a steroid taper- pt to start physical therapy- pt has been steroid injections in the joints [id number] CHLOÉ CHAVEZ MD Main Office [address] [facility] [address] [place] [address] 04/26/2022 12:54:32 04/26/2022 14:27:27 Pain of multiple joints 17754850 M25.50 - pt has been having pain in her left hip, right hip, left foot and left leg- believe etiology most likely MSK> pt has history of right hip arthritis for which she gets cortisone shots> pt mentions the same problem developed on the left hip and appears to be having a flare> pt also has left sided plantar fascitis, not compliant with exercises- will try obtain most recent records [facility] for patient's left sided hip pain- pt negative for vitamin B12 deficiency , rheumatolo gical work-up was negative- inflammato ry markers were normal- had a discussion with patient on starting duloxetine and it could help with neuropathi c pain (pt mentioning it as water falling down her legs) and lower back pain for which patient is also complainin g about> pt would like to read on medication before starting any new medication > will revisit subject at next visit Pain of le ft hip joint 1298358892 53868 M25.552 - most likely due to OA- pt is currently on lidocaine patches and started taking the muscle relaxer (tizanidin e 2mg nightly)- pt was also started on meloxicam however she is allergic- steroid paper provided moderate relief- pt as not yet started PT- pt has been steroid injections in the joints- pt continue to follow-up with [facility] Dysuria 23788781 R30.0 - improved- urine dip stick showing moderate leukocytes - urine culture was negative, pt completed antibiotic treatment Edema of l ower extremity 943978211 R60.0 - pt having increased tightness and edema in the left lower extremity- lower extremity doppler was negative Arthritis of right hip 7032903242 589706 M13.851 - symptoms are currently well controlled [id number] Allison Apodaca MD Main Office [address] [facility] [address] [place] [address] 07/24/2022 15:35:00 07/24/2022 16:21:03 Hypertensive renal disease 60999327 I12.9 She is tolerating the amlodipine and has had good BP readings. Continue current mgmt. Eczema 30992689 L30.9 Tried an anti-funga l cream on the area w/o much help. Pain of bi lateral hip joints 3171933886 1315300 M25.552 She has end-stage OA and is scheduled for hip replacemen t by Dr Green. The right will be done 08/13/22 and the left the following month. Her pre-op is scheduled for later this month at [facility]. Low back pain 010893180 M54.50 It is unclear if this is secondary to her hip pain or if it is a separate issue. Chronic ki dney disease stage 2 250691526 N18.2 [id number] Allison Apodaca MD Main Office [address] [facility] [address] [facility] [place] [address] 12/06/2022 11:32:06 12/06/2022 12:05:31 Pain of toe of right foot 2491646175 75152 M79.674 Probable toe sprains but will get an xray to evaluate. Explained to her that it could take 6 months to improve. She is not requesting meds at this time. [id number] Allison Apodaca MD Main Office [address] [facility] [address] [place] [address] 01/29/2023 09:28:05 01/29/2023 10:18:01 Adult health examination 529809378 Z00.00 She is UTD with immunizati ons and [employer] care. Had a colonoscop y in [address] Holder and due again in 2030. She is UTD with COVID vaccine and was advised to get the booster at her pharmacy. She was also advised to get the shingles vaccine. We will give her the flu and tetanus today. We discussed exercise and cardiac risk factors. Needs infl uenza immunization 463231294 Z23 Chronic ki dney disease stage 2 550655941 N18.2 Hypertensi ve renal disease 12611676 I12.9 Running high so will change her med. D/c amlodipine and start amlodipin/ benazepril Hyperlipidemia 91946881 E78.5 Tolerating the simvastati n. Will check fasting lipid level. Moderate p ersistent asthma 965751824 J45.40 Uses maintenanc e inhaler and rarely uses her rescue inhaler. Obstructiv e sleep apnea syndrome 68749985 G47.33 Stable with CPAP. Requires a tetanus booster 012492650 Z23 Varicella vaccination 68 640721 Z23 Advised to get this at her pharmacy. [id number] Darryl Moran MD Main Office [address] [facility] 207 [facility] [place] [address] 02/02/2023 10:16:23 02/02/2023 11:04:23 COVID-19 232573419 U07.1 Tylenol OTC, not to exceed package insert for pain or fever q4-6h advised prn. Counselled on not exceeding more than 3g/day.Thr oat Lozenges otc prn for sore throatsalt water garglerest advised.ad equate hydration enforcedsa line sprayshumi difier use enforced.p axlovid sent, last available kidney function reviewed, advised eua and potential side effects,Ad vised to hold statin half dose amlodipine she was told to stop current bp meds as it is a capsule, she has left over just amlodipine 5mg, she will half that. Advised to monitor BPAlso advised can use a teaspoon honey for coughisola tion precaution discussedp recaution advised if any difficulty breathing or tmax 103 >, unable to hydrate, sx worsent then go to nearest ED [id number] Darryl Moran MD Main Office [address] [facility] [address] [facility] [place] [address] 02/13/2023 08:59:52 02/13/2023 09:31:25 Post-acute COVID-19 2282016784 U09.9 discussed possibilit y of rebound infection after Paxlovid, encouraged extra rest and hydration. Acute sinusitis 05252999 J01.90 begin abx as directed for 10 days on full stomach , add probiotics . Nasal saline 2-3 times daily. Avoid decongesta nts due to elevated blood pressure. Moderate p ersistent asthma 705085651 J45.40 persistent cough , but no evidence of pneumonia or wheezing on the exam. Continue current asthma medication s. Hypertensi ve renal disease 32322714 I12.9 Restart amlodipine benazepril today, continue low sodium diet. Check blood pressure at home. F/u with PCP as scheduled next month. Chronic gracie dney disease stage 2 [id number] N18.2 [id number] Allison Apodaca MD Main Office [address] [address] [place] [address] 04/04/2023 08:37:05 04/04/2023 09:19:14 Hypertensive renal disease [id number] I12.9 BP still running a little high. Will increase her dose of amlodipine -benazepri l from 09/12 to 02/22. Some improvemen t on meds. Will increase her dose and check labs. Hyperlipidemia 78284171 E78.5 Tolerating the simvastati n. Will check fasting lipid level. Chronic gracie dney disease stage 1 [id number] N18.1 [id number] Allison Apodaca MD [facility] [address] [address] [place] [address] 07/03/2023 10:01:27 07/03/2023 11:02:38 Acute bronchitis 80076816 J20.9 Exacerbati on of moderate persistent asthma 839437841 J45.41 continue inhaler use. Notes Breyna not working as well as symbicort and she is feelign dizzy, heart racing when she takes it. she will give it a little more time. Acute sinusitis 40277723 J01.90 Hydration, rest, tylenol or ibuprofen as needed, tea with honey, OTC cough meds as needed. [id number] Allison Apodaca MD Main Office [address] [address] [place] [address] 07/11/2023 13:38:15 07/11/2023 14:08:25 Candidiasis of mouth 58176333 B37.0 x1 week-was on prednisone course for asthma exacerbati on and is on Breyna inhaler-pt completed the prednisone course and noticed white spots on her tongue-PE revealed raised, white patches on the tongue-quang l have pt complete x10 day course of miconazole -discussed with pt proper usage of inhaler with rinses after each use [id number] Allison Apodaca MD Main Office [address] [address] [place] [place] [address] 08/01/2023 08:46:52 08/01/2023 09:17:55 Hypertensive renal disease 45932771 I12.9 Good control; continue current mgmt. Candidiasis of mouth 797 61787 B37.0 Treated with diflucan and resolved. Hyperlipidemia 87762602 E78.5 Tolerating atorvastat in. Will check fasting lipid level. Chronic ki dney disease stage 1 139372210 N18.1 [id number] Allison Apodaca MD Main Office [address] [address] [place] [address] 10/16/2023 14:49:36 10/16/2023 15:25:36 Cough 21852712 R05.9 Secondary to URI and possibly PND from allergies. No role for abx. Upper resp iratory infection 33741561 J06.9 Symptomati c treatment. [id number] Woo Houston MD Main Office [address] [address] [place] [address] 11/18/2023 15:46:29 11/18/2023 17:00:01 Upper abdominal pain 13965006 R10.10 ruq pain x ~ 2 wks - had lap ubaldo 6.18? SE to doxysee below - wonder if has hepatic flexure syndrome vs other Nausea 936294737 R11.0 if no help c nida tea or flat nida vladimir, then trial c prn zofran Constipation 56456869 K5 9.00 see above/belo w - rec colace qd, stay well hydrated Early satiety 882993289 R68.81 ? if d/t above constipati on/hepatic flexure syndromewo nder if has gastric outlet obstructio n - check ugis/sbft Acute sinusitis 32583456 J01.90 stop doxy -- cough better - wonder if above sxs d/t SE Gastroesop hageal reflux disease 167983101 K21.9 cont ppi as dir [id number] Woo Houston MD Main Office [address] [place] [address] 12/03/2023 11:23:26 12/03/2023 12:14:01 Pain of left shoulder joint [id number] 0965973 M25.512 see below - will check xray - if + fx then will get ortho evalcont tyl, ice Fall W19.XXXA fell out of bed accidental ly, landed on L shoulder Obstructiv e sleep apnea syndrome 02465081 G47.33 cont cpap Early satiety 786011543 R68.81 ? if d/t above constipati on/hepatic flexure syndromewo nder if has gastric outlet obstructio n - check ugis/sbft 7.30.24 - looks like barium swallow was ordered instead of ugis/sbft - will change c principal clerk Constipation 91635814 K5 9.00 see above/belo w - rec colace qd, stay well hydrated 7.30.24 - ruq pain a little better but not resolved - still pooping 'pellets' - rec change to laxaclear 1 scoop 1-2 times/day, stop colace? has hepatic flexure syndrome [id number] Woo Houston MD Main Office [address] [facility] [address] [place] [address] 01/13/2024 15:49:29 01/13/2024 17:05:06 Skin lesion 76060372 L98.9 On right arm x 8 days from getting hit with a metal door.Appea rs to be healing - cont triple abx ointment 2-3 times/day. Return to clinic if worsens or fails to improve.re c stop hydrogen peroxideof fered reassuranc e - has evidence of reactive hyperemia and no evidence of cellulitis Tetanus UTD Pain of le ft shoulder joint [id number] 5378847 M25.512 see below - will check xray - if + fx then will get ortho evalcont tyl, ice 9.24 - better but not resolved, cont hep, pt declined PT/ortho at this time, may consider if no better Needs infl uenza immunization 853459609 Z23 19 YEARS AND OLDER ONLY [id number] Allison Apodaca MD Main Office [address] [facility] [address] [place] [address] 02/04/2024 15:43:12 02/04/2024 16:40:54 Adult health examination 835630931 Z00.00 She is UTD with immunizati ons and [employer] care. Had a colonoscop y in [address] Holder and due again in 2030. She is UTD with COVID vaccine and was advised to get the booster at her pharmacy. She was also advised to get the shingles vaccine. We will give her the flu and tetanus today. We discussed exercise and cardiac risk factors. Hypertensi ve renal disease 46762973 I12.9 Running the last couple of times. Will increase her dose of amlodipine 10-benazap ril 20 mg to 10/40 mg. Chronic ki dney disease stage 1 088958973 N18.1 Hyperlipidemia 89265734 E78.5 Tolerating atorvastat in. Will check fasting lipid level next appointmen t. Intermittent asthma 4276 18880 J45.20 Well-contr olled with current mgmt. Eczema 69784900 L30.9 Possible contact dermatitis . Gastroesop hageal reflux disease 370602511 K21.9 Still with symptoms despite PPI. Advised taking it twice daily, we discussed losing weight and also putting blocks under the head of the bed. Obstructiv e sleep apnea syndrome 30742853 G47.33 Stable with CPAP. [id number] Allison Apodaca MD Main Office [address] [facility] [address] [place] [address] 03/17/2024 14:26:11 03/17/2024 16:22:34 Abdominal pain 10774971 R10.9 Unclear etiology. She may need a CT scan but would like to hold off until she sees GI since she may need to cover the cost of any imaging study. [id number] Allison Apodaca MD Main Office [address] [facility] [address] [place] [address] 03/23/2024 13:02:51 03/23/2024 13:33:11 Acute urinary tract infection 895393181 N39.0 was evaluated at [facility] on 03/22 for UTI-was given cefpodoxim e 10 day course-adv ised by ED to repeat culture, will obtain culture and send to lab Hydronephrosis 26696245 N13.30 CT scan revealed right hydronephr osis-will repeat urinalysis Chronic ki dney disease stage 1 273981150 N18.1 [id number] Allison Apodaca MD [facility] [address] [place] [address] 04/16/2024 13:58:54 04/16/2024 15:40:12 Acute sinusitis 09595054 J01.90 Will do an abx for her sinusitis which should also help with a presumed UTI. She will give a urine sample first before starting the abx. Dysuria 63515470 R30.9 Actually nondescrip t abdominal pain that is difficult for her to localize. No evidence for an infection on urine dip. Will send culture.SY MPTOMS:bur ronnell with urination? {{yes no*} }frequency ? {{yes* no} }hematuria ? {{yes no*} }lower abdominal pain? {{yes* no} }symptoms similar to previous UTI? {{yes* no NA}} POSSIBLE CONTRAINDI CATIONS TO TELEPHONE TREATMENT: > 65 years of age? {{yes no*} }fevers? {{yes no*} }recent UTI (within 1 month)? {{yes* no} }new low back pain? {{yes* no} }nausea or vomiting? {{yes* no} } nausea in the morningpre gnant? {{yes no*} }history of interstiti al cystitis? {{yes no*} } PROVIDER ACTION: Reviewed nursing notes? {{yes no}} Recommende d action {{appropri ate for telephone treatment needs appointmen t must drop off urine for culture}} Antibiotic treatment {{Bactrim DS x 3 days Bactr im DS x 7 days Macro bid x 7 days Cipro x 3 days Cipro x 7days anot her medication (provider will prescribe) NA}} [id number] Darryl Moran MD Main Office [address] [place] [address] 06/13/2024 10:38:11 06/16/2024 08:35:13 Exposure to Influenzavirus 811541079 Z20.828 Respirator y syncytial virus infection 69080501 B97.4 Viral syndrome 621777088 B34.9 [id number] Allison Apodaca MD Main Office [address] [place] [address] 06/23/2024 14:49:36 06/23/2024 15:31:43 Acute bronchitis 84256201 J20.9 Probable viral infection. No abx needed. She will treat her symptoms with OTC meds. Expiratory wheezing 9763 007 R06.2 She was on a 6-day course of steroids but had rebound in her symptoms once she stopped. Will do an extended course of prednisone to prevent rebound. Acute sinusitis 46344896 J01.90 Started doxycyclin e 2 days ago. Spoke to the on-call doctor. [id number] Allison Apodaca MD Main Office [address] [facility] [address] [facility] [place] [address] 06/27/2024 10:46:51 06/27/2024 11:27:29 Chronic cough 43179152 R05.3 Since her cough has been an intermitte nt problem since mid April (2 months ago) I will refer her to pulmonolog y for further evaluation . She continues to have symptoms on prednisone and inhalers/u pdrafts. Candidiasis of mouth 797 99597 B37.0 We treated her in the past for this but her symptoms have returned. She is at risk because of steroid use and abx use. Candidiasi s of the esophagus 61050269 B37.81 Treat for 2 weeks with diflucan. Will refer to GI if this persists. Health Concerns Section Related Observation LastModified by Organization Detai ls LastModified Time None Recorded Concern Status LastModified by Organization Details LastModified Time None Recorded Advance Directives Directive Y: Payers Encounter Date Sequence Insurance Name Policy Number Policy Lan Covered Member ID Lan Member ID Guarantor Name 03/23/2024 1 [facility] [facility] [id number] Renee A Tougas [id number] Renee A Tougas 04/16/2024 1 [place] [facility] [place] [place] [id number] Renee A Tougas [id number] Renee A Tougas 06/13/2024 1 [facility] [facility] [place] [place] [id number] Renee A Tougas [id number] Renee A Tougas 06/23/2024 1 [place] [facility] [employer] [id number] Renee A Tougas [id number] Renee A Tougas 06/27/2024 1 [facility] [place] [place] [id number] Renee Pradhan [id number] Renee Pradhan Notes Date Note Type Note Provider Name and Address Organization Details Recorded Time 03/23/2024 text/html Renee is a 63yr old F who presents for a hospital f/u. Follow Up Hospital: [facility] date: 03/19/24Date of discharge: 03/19/24 Renee was evaluted at [facility] for intermittent right flank pain and RUQ pain. CT revealed no evidence of pyelonephritis. Did show hydronephrosis of the right kidney. Urine came back + for a UTI. Was treated with a course of bactrim- pt is allergic, was given cefpodoxime x10 day course instead. FELICITA RENE [address] [address], [place], [address], [facility] 03/24/2024 21:33:40 04/16/2024 text/html Developed a coug h and roommate also has same symptoms. Barky cough. Also with sinus pressure and swelling on the right side of her face. Started about 1 week ago and now getting worse. Only using saline spray. No fever but felt chilly last night. Urine symptoms are back with frequency and pressure. Denies n/v or fever and no new back pain. She has an appointment with urology in a less than 3 weeks. Allison Apodaca MD [address] [address], [place], [address], [facility] 04/16/2024 18:46:51 06/13/2024 text/html Upper Respirator y SymptomsReported bypatient.Location:hea d; chest Quality:sharp throat pain;colored phlegm;congested;hurts to swallow Duration:yesterday morning. Context:no foreign travel; non-smoker;sick contact Associated Symptoms:no fever; no vomiting; no diarrhea; no rash; no nausea;shortness of breath;wheezing;diffic ulty breathing at night;fatigue;sweats;s ore throatNotes:The patient reports headache, earache, nasal congestion, shortness of breath with wheezing, and body aches since yesterday morning. She denies fever. She was recently exposed to influenza A through a friend. Symptoms are ongoing, and she is seeking evaluation for further management. Darryl Moran MD [address], [address], [facility] 06/13/2024 13:28:15 06/23/2024 text/html She has been hav ing a cough and was seen here on 06/13/24 and was diagnosed with RSV. She was also tested for flu and COVID both of which were negative. She was treated symptomatically and given a script for benzonatate. This did not help with her cough. She has been using her rescue inhaler more frequently and continues with her maintenance inhaler. She started developing facial pain and nasal d/c and spoke to the on-call doctor 2 days ago and was prescribed a 7-day course of doxycycline. She comes in today because she is having continual SOB and wheezing. Allison Apodaca MD [address], [address], [facility] 06/23/2024 17:55:09 06/27/2024 text/html She comes in wit h a cough and SOB which is not being helped much by prednisone. She continues to use her rescue nebulizer but only gets relief for about an hour. She is also on day 6 of her doxycycline. In addition she feels that she has thrush in her mouth and has some difficulty and discomfort swallowing. Allison Apodaca MD [address], [address], [facility] 06/27/2024 13:21:59 OBGyn Episode No OBEpisode recorded.
[2024-09-10 16:43] VITALS: PULSE 76; O2SAT 96
[2024-09-10 17:15] LABS: Basophils Absolute Auto 0.1 X10*3/uL (0.0-0.2); Basophils Percent Auto 0.4 % (0-2); Eosinophils Absolute Auto 0.1 X10*3/uL (0.0-0.4); Eosinophils Percent Auto 1.2 % (0-4); Hematocrit 35.5 % (37.0-47.0); Hemoglobin 12.1 g/dl (12.0-16.0); Imm Gran Abs Auto 0.05 X10*3/uL (0.00-0.03); Imm Gran Pct Auto 0.4 % (0.0-0.4); Lymphocytes Absolute Auto 3.1 X10*3/uL (1.2-4.9); Lymphocytes Percent Auto 27.3 % (20-40); Mean Corpuscular HGB Conc 34.1 g/dl (31.0-35.0); Mean Corpuscular Hemoglobin 29.7 pg (27.0-33.0); Mean Platelet Volume 10.2 fL (9.4-12.3); Monocytes Absolute Auto 0.8 X10*3/uL (0.1-1.2); Monocytes Percent Auto 6.8 % (2-11); Neutrophils Absolute Auto 7.3 x10*3/uL (2.0-8.3); Neutrophils Percent Auto 63.9 % (45-73); Platelet Count 258 X10*3/uL (160-400); Red Blood Count 4.08 X10*6/uL (4.20-5.50); Red Cell Distribution Width 14.2 % (11.0-16.0); White Blood Count 11.4 X10*3/uL (4.8-10.8)
[2024-09-11 21:43] LABS: Immunoglobulin E 22 kU/L (<OR=114)
[2024-09-14 22:44] LABS: Class Alternaria alternata 0; Class Aspergillus fumigatus 0; Class Bermuda Grass 0; Class Birch 0; Class Cat Dander 0/1; Class Cladosporium herbarum 0; Class Cockroach 0; Class Common Ragweed 0; Class Cottonwood 0; Class Derm. pterony 0; Class Dermatophagoides farinae 0; Class Dog Dander 2; Class Elm 0; Class Maple Box Elder 0; Class Mountain Cedar 0; Class Mouse Urine Protein 0; Class Mugwort 0; Class Oak 0; Class Penicillium crysogenum 0; Class Rough Pigweed 0; Class Sheep Sorrel 0; Class Sycamore 0; Class Timothy Grass 0; Class Walnut Tree 0; Class White Ash 0; Class White Mulberry 0; D001 IgE D pteronyssinus <0.10 kU/L; D002 - IgE D farinae <0.10 kU/L; E001 - IgE Cat Dander 0.17 kU/L; E005 - IgE Dog Dander 1.38 kU/L; E072-IgE Mouse Urine <0.10 kU/L; G002 IgE Bermuda Grass <0.10 kU/L; G006 - IgE Timothy Grass <0.10 kU/L; I006-IgE Cockroach, German <0.10 kU/L; Immunoglobulin E 23 kU/L (<OR=114); M001 IgE Penicillium chrysogen <0.10 kU/L; M002 - IgE Cladosporium herbar <0.10 kU/L; M003 - IgE Aspergillus fumigat <0.10 kU/L; M006 - IgE Alternaria alternat <0.10 kU/L; T001 IgE Maple/Box Elder <0.10 kU/L; T003 IgE Common Silver Birch <0.10 kU/L; T006 - IgE Cedar, Mountain <0.10 kU/L; T007 - IgE Oak, White <0.10 kU/L; T008 IgE Elm, American <0.10 kU/L; T010 - IgE Walnut <0.10 kU/L; T011 - IgE Maple Leaf Sycamore <0.10 kU/L; T014 - IgE Cottonwood <0.10 kU/L; T015 - IgE Ash, White <0.10 kU/L; T070 - IgE White Mulberry <0.10 kU/L; W001 - IgE Ragweed, Short <0.10 kU/L; W006 - IgE Mugwort <0.10 kU/L; W014 IgE Pigweed, Common <0.10 kU/L; W018 IgE Sheep Sorrel <0.10 kU/L
[2024-09-18 08:33] LABS: Rast Allergen SEE COMMENTS
== END 2024-09-10 15:22 | disposition home or self-care (01) ==
LOC: HO.RESP 15:21
PROVIDERS: PCP Internal Medicine; Visit Provider Nurse Practitioner Family
DX: J45.909 Unspecified asthma, uncomplicated (principal); Z91.09 Other allergy status, other than to drugs and biological substances
CPT/HCPCS: 36415; 82785; 85025; 86003; 94010; 94640; 94727; 94729

== ENCOUNTER → 2024-09-10 15:51 | Outpatient (BNV) | payer BC, SELFPAY | PROVIDERS: PCP Internal Medicine; Visit Provider Hospitalist | DX: J45.909 Unspecified asthma, uncomplicated (principal) | CPT/HCPCS: 94060; 94727; 94729 ==

== ENCOUNTER 2024-10-13 15:01 | Outpatient (AMB) | payer BC, SELFPAY ==
--- NOTE | 2024-10-13 15:38 | A.OFFVIS_ITS ---
Vital Signs 10/13/24 15:39 Height 5 ft 2.5 in Weight 197 lb 6 oz BMI 35.5 BP 124/70 Blood Pressure Location Rt brachial Position Sitting Pulse 77 Pulse Source Pulse Oximeter Pulse Oximetry (%) 96 Oxygen Delivery Method Room Air Intake Visit Reasons: Asthma / PFT FU Allergies polymyxin B Allergy (Severe, Verified 10/13/24 15:42) hives erythromycin base [Erythromycin Base] Allergy (Mild, Unverified 10/13/24 15:42) MILD NSAIDS (Non-Steroidal Anti-Inflamma [Nsaids] Allergy (Mild, Unverified 10/13/24 15:42) HIVES oxycodone [From Tylox] Allergy (Mild, Unverified 10/13/24 15:42) MILD acetaminophen [From Vicodin] Allergy (Verified 10/13/24 15:42) Rash aspirin Allergy (Verified 10/13/24 15:42) Unknown hydrocodone [From Vicodin] Allergy (Verified 10/13/24 15:42) Rash naproxen Allergy (Verified 10/13/24 15:42) Unknown Sulfa (Sulfonamide Antibiotics) Allergy (Verified 10/13/24 15:42) Unknown augmentin Adverse Reaction (Uncoded 10/13/24 15:42) abdominal pain, diarrhea HPI HPI Asthma / PFT FU: Details: Renee is a pleasnt 64 year old female, former 20 pack year smoker, quit 15 years ago with underlying asthma, allergic rhinitis, GERD and LIZZ on CPAP managed by PCP. She was initially referred by PCP for pulmonary evaluation for subacute cough which has persisted since karlos RSV this past winter, although less persistent now with associated dyspnea on exertion. She continues to report suboptimal control with Breyna. She does contribute some dyspnea to increased weight, gained approximately 40 lbs over the last few years and is working towards weight loss. Today she presents to review PFT. [facility] Social History Patient Tobacco Use Status: Former Tobacco user Cigarette Packs Per Day: 0.5 Years Smoked: 30+ Quit in 2007 Physical Exam Vital Signs: Last Vital Signs Pulse 77 10/13/24 15:39 BP 124/70 10/13/24 15:39 Pulse Ox 96 10/13/24 15:39 Oxygen Delivery Method Room Air 10/13/24 15:39 BMI result Body Mass Index 35.5 Assessment & Plan Assessment & Plan (1) Asthma-COPD overlap syndrome: Code(s): J44.89 - Other specified chronic obstructive pulmonary disease Category: Medical (2) Cough: Code(s): R05.9 - Cough, unspecified Category: Medical (3) Environmental allergies: Code(s): Z91.09 - Other allergy status, other than to drugs and biological substances Category: Medical (4) Personal history of tobacco use: Code(s): Z87.891 - Personal history of nicotine dependence Category: Social Hx (5) LIZZ on CPAP: Code(s): G47.33 - Obstructive sleep apnea (adult) (pediatric) Category: Medical (6) Daytime somnolence: Code(s): R40.0 - Somnolence Category: Medical Plan Reviewed PFT which revealed an obstructive ventilatory defect consistent with moderate COPD. No significant response to bronchodilators noted. Lung volumes are normal except for decrease in the expiratory reserve volume secondary to an elevated BMI. Diffusing capacity is within normal limits. Patient reports suboptimal effect with Breyna, will switch to Trelegy. Will also trial Flonase for ongoing nasal congestion. Awaiting chest CT which is scheduled in November at [facility] but patient would like to schedule through [facility], will reenter order. Reviewed RAST which revealed allergies to cats/dogs, otherwise no environmental allergies. Patient currently managed on CPAP therapy but has had a significant weight gain and reports worsening daytime fatigue. Will send for in lab titration study to ensure optimal pressures. [facility]. All questions were answered and patient is in agreement of plan. Will follow up to review results of CT and assess response to Trelegy or sooner if needed. Orders: Orders RT PSG in-lab sleep titration Today G47.33 - Obstructive sleep apnea (adult) (pediatric), R40.0 - Somnolence Medications: New sylkkdnubiu-gngsccyiv-rlkkbfgx 200-62.5-25 mcg (Trelegy Ellipta) 1 inh inhalation DAILY 60 ea 6RF fluticasone furoate 27.5 mcg/actuation (Flonase Sensimist) into each nostril 1 spray intranasal DAILY 5.9 mL 0RF Coding Level of Care Code Est Pt Level 4 (15608) Complex EM visit Add On G2211 Diagnoses Asthma-COPD overlap syndrome J44.89 Cough R05.9 Environmental allergies Z91.09 Personal history of tobacco use Z87.891 LIZZ on CPAP G47.33 Daytime somnolence R40.0
[2024-10-13 15:39] VITALS: BP 124/70; PULSE 77; O2SAT 96; BMI 35.5
--- OUTSIDE RECORDS SUMMARY | 2024-10-13 18:07 | XMS_ITS | Clinical Summary ---
Author Organization [facility] Address [address] [place] [address] Care Team Providers Care Part Time Name Role Phone Unavailable Primary Care Provider [...]
== END 2024-10-13 16:17 | disposition home or self-care (01) ==
LOC: HO.HPSW 15:02
PROVIDERS: PCP Internal Medicine; Visit Provider Nurse Practitioner Family
DX: J44.89 Other specified chronic obstructive pulmonary disease (principal); R05.9 Cough, unspecified; Z91.09 Other allergy status, other than to drugs and biological substances; Z87.891 Personal history of nicotine dependence; G47.33 Obstructive sleep apnea (adult) (pediatric); R40.0 Somnolence
CPT/HCPCS: 99214

== ENCOUNTER → 2024-10-13 15:01 | Outpatient (BNVA) | payer BC, SELFPAY | PROVIDERS: PCP Internal Medicine; Visit Provider Nurse Practitioner Family ==

== ENCOUNTER → 2024-11-13 20:30 | Outpatient (REF) | payer BC, SELFPAY ==
--- OUTSIDE RECORDS SUMMARY | 2024-11-13 20:50 | XMS_ITS | Clinical Summary ---
Author Organization [facility] Address [address] [place] [address] Care Team Providers Care Editing Intern Name Role Phone Unavailable Primary Care Provider [...]
--- OUTSIDE RECORDS SUMMARY | 2024-11-13 20:51 | XMS_ITS | Data Portability ---
Author Organization [facility], Main Office Address [address] [place] [address] Care Team Providers Care Art Coordinator Name Role Phone ALLISON APODACA Primary Care Provider MARCELA LEWIS Faa Certified Powerplant Mechanic MAE HUERTA Vascular Surgeon [facility] ([facility]) Orthopedic Surgeon [facility] Gastroenterologi st [phone] ABBI SCHRADER Urologist LALO NENIS Jeweler Apprentice Assessment Encounter Date Assessment Date Assessment LastModified by Organization Details LastModified Time 09/21/2024 09/21/2024 Discussed with patient the signs/symptoms warranted for a return to office visit and/or an ER visit. Patient understood and agreed with the plan. Not available 09/21/2024 15:42:13 09/23/2024 09/23/2024 This diabetes screening test suggests prediabetes. We should recheck this in 6-12 months. In the meantime regular exercise, lower carbohydrate intake and weight loss are the best way to limit the risk of progression. Not available 09/23/2024 10:13:18 Plan of Treatment Reminders Order Date Submit Date Provider Last Modified By Organization Details Last Modified Time Details Appointments PE EST 2024 03:45P M Allison martinez MD Not available Not available Not available Lab strep group A, DNA, swab 2024 025 [facility] In-Office Order, Internal Use Only DO Not Attach Compendium DO Not Attach Compendium, Do Not Delete/merge, [id number] 09/23/2024 10:26:45 strep group A, DNA, swab 2024 025 [facility] In-Office Order, Internal Use Only DO Not Attach Compendium DO Not Attach Compendium, Do Not Delete/merge, [id number] 09/21/2024 15:42:09 Referral pulmonary disease specialis t referral - Chronic cough since april. Not improving with steroids and abx. 2024 025 [email or web address] Lalo Ennis MD, [address] [place] [address] [place], [address], 09/03/2024 11:26:40 Procedures None recorded. Surgeries None recorded. Imaging XR, chest, 2 view - Chronic cough for 2 months; r/o infiltrat e/mass 2024 025 [facility] (Ultrasound), [address] [place] [address], [address], 06/27/2024 12:06:32 Medication Orders doxycycli ne hyclate 100 mg capsule 2024 025 [facility]armacy #[id number], [address] [place], [address], 10/10/2024 05:00:53 fluconazo le 200 mg tablet 2024 025 [facility] [address] [place], [address], 09/21/2024 15:38:10 benzonata te 200 mg capsule 2024 025 [facility] #0084, [address] [place], [address], 09/21/2024 15:38:25 prednison e 10 mg tablet 2024 025 [facility] #[id number], [address] [place], [address], 09/21/2024 15:38:18 Patient TargetsNo targets recorded. Patient Instructions Encounter Date Encounter Id Patient Instructions Last Modified By Organization Details Last Modified Time 06/23/2024 [id number] Acute Sinusitis: Care Instructions [email or web address] Not available 06/23/2024 17:43:20 bronchitis: care instructions acennerazzo Not available 06/23/2024 15:17:22 06/27/2024 [id number] candidiasis: care instructions [email or web address] Not available 06/27/2024 11:20:29 chronic cough: care instructions acennerazzo Not available 06/27/2024 11:17:21 09/23/2024 [id number] sore throat: care instructions Not available 09/23/2024 10:15:48 09/26/2024 [id number] chronic obstructive pulmonary disease (COPD): care instructions acennerazzo Not available 09/26/2024 13:17:48 learning about copd and how to prevent lung infections acennerazzo Not available 09/26/2024 13:17:48 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 Not improving with steroids and abx. Referring Physician: Allison Apodaca, Family Medicine, Encounter Date: 06/27/2024 Results Created Date Observation Date Name Description Value Unit Range Abnormal Flag Note LastModifiedBy Organization Detail LastModifiedTime 06/13/1906/13/2024 rsv (resp irato ry syncy tial virus ), rapid , nasop haryn geal RSV, RAPID positi ve Not Available In-Office Order Internal Use Only DO Not Attach Compendium DO Not Attach Compendium, Do Not Delete/merge, [id number] 06/13/2024 11:58:24 06/13/1906/13/2024 rapid SARS CoV 2 Ag, QL IA, respi rator y speci men RAPID SARS COV 2 negati ve Not Available In-Office Order Internal Use Only DO Not Attach Compendium DO Not Attach Compendium, Do Not Delete/merge, [id number] 06/13/2024 11:58:04 06/13/1906/13/2024 rapid flu (A+B) Flu A negati ve Not Available In-Office Order Internal Use Only DO Not Attach Compendium DO Not Attach Compendium, Do Not Delete/merge, [id number] 06/13/2024 10:43:25 06/13/1906/13/2024 rapid flu (A+B) Flu B negati ve Not Available In-Office Order Internal Use Only DO Not Attach Compendium DO Not Attach Compendium, Do Not Delete/merge, [id number] 06/13/2024 10:43:25 09/22/19 25 09/21/2024 strep group A, DNA, swab ID NOW Strep A 2 (rapid molecular test) negati ve Not Available In-Office Order Internal Use Only DO Not Attach Compendium DO Not Attach Compendium, Do Not Delete/merge, [id number] 09/21/2024 15:39:34 09/24/1909/23/2024 strep group A, DNA, swab ID NOW Strep A 2 (rapid molecular test) negati ve Not Available In-Office Order Internal Use Only DO Not Attach Compendium DO Not Attach Compendium, Do Not Delete/merge, [id number] 09/23/2024 10:15:45 06/27/1906/27/2024 XR, chest , 2 view Chest 2 Views Fronta l and Lat INDICA TION/C LINICA L QUESTI ON: Reason : chroni c cough for 2 months ; Clinic al Questi on(s): Other: ; R O infilt rate mass / Other: TECHNI QUE: Fronta l and latera l views of the chest. COMPAR DOMINIC: 021. FINDIN GS: LINES AND TUBES: None. [...] No active diseas e in chest. WSN: [id number] Orderi ng Physic kelsea: Allison Patel Dictat ed By: Gunderson Ernie ASHFORD Dictat ed Date/T ramses: 12:03 p Review ed By: Ernie Gunderson MD Signed By: Ernie Gunderson MD Signed Date/T ramses: 12:03 pm Transc ribed By: ARSALAN Transc ribed Date/T ramses: 12:03 pm Patien t Class: Outpat ient [facility] (Outpt Imaging) [address], [place], [address], 06/27/2024 14:02:45 10/02/19 25 09/30/2024 compl ete PFT w/ post [facility] hodil ator tonie metry * No observ ation record ed. [facility] [address], [place], [address], 10/03/2024 11:44:38 10/29/19 25 10/27/2024 CT chest ldct lung progr am CT Chest LDCT Lung Progra m INDICA TION: LAST ELIGIB LE IF LRAD 1 OR 2 LDCT LUNG CANCER SCREEN ING PROGRA M. FORMER ,QUIT AT AGE 54, 30 PACK YEAR HX; NO CHEST CT IN THE 12 LAST MONTHS . NO LUNG CA, SIGNS OR SYPMTO MS. Visit type: Baseli ne TECHNI QUE: Low-do se helica l CT of the chest withou t IV contra st (Adult Lung Cancer Screen ing) protoc ol was perfor med. Velasquez l reform ats were obtain ed. Weight -based protoc ol using automa tic tube modula tion was used to optimi ze exposu re parame ters. CTDIvo l Body: 2.66 mGy, DLP Body: 91 mGy*cm . COMPAR DOMINIC: None FINDIN GS: LUNG NODULE S (measu red on thin axial series 5): RIGHT lung: There are a few scatte red ground glass nodule s measur ing up to 4 mm in the right upper lobe LEFT lung: None. OTHER FINDIN GS: Financial Services Counselor view findin gs, lines and tubes: None. Trache a and airway s: Patent withou t eviden ce of trache al or endobr onchia l lesion . Lungs and pleura : Mild subseg mental linear scarri ng or atelec tasis in the lower lungs. No effusi on or pneumo thorax . Medias tinum and suzi: No mass or hemato ma. No medias tinal or hilar lympha denopa thy. No esopha geal abnorm ality. Heart: Heart is normal in size. No perica rdial effusi on. Severe velasquez ry artery calcif icatio n. Aorta: Mild vascul ar calcif icatio n but no aneury sm. Pulmon jeny arteri es: Normal calibe r. Chest wall soft tissue s: No acute abnorm ality. Diaphr agm: Small fat-co ntaini ng right Bochda lek hernia . Upper abdome n: Status post cholec ystect cierra. Bones: No acute abnorm ality. IMPRES SEFERINO: 1. Small right upper lobe ground glass nodule s measur ing up to 4 mm. LungRa d Catego ry: 2 Benign Appear ance or Behavi or. Nodule s with a very low likeli mcbride of becomi ng a clinic ally active cancer due to size or lack of growth . Given no compar dominic exam, 12 month follow -up chest CT is recomm ended. 2. No signif icant additi onal findin gs requir ing furthe r evalua tion. Lung-R AD Catego ry Modifi er: None. Catego rizati on based on Lung-R ADS 2 criter ia. https: //www. [email or web address] [email or web address] R/File s/RADS /Lung- RADS/L jose-RA DS-202 2.pdf WSN: [id number] Orderi ng Physic kelsea: Allison Patel Dictat ed By: Umair Simental MD Dictat ed Date/T ramses: 2:38 pm Review ed By: Umair Simental MD Signed By: Umair Simental MD Signed Date/T ramses: 2:38 pm Transc ribed By: ARSALAN Transc ribed Date/T ramses: 2:33 pm Patien t Class: [facility] [address] [facility], [place], [address], 10/28/2024 17:05:08 11/11/19 25 LDCT, chest , for lung kulwant reynaga No observ ation record ed. [facility] - [facility] Information Management [address] [place], [address], 11/10/2024 11:42:06 Result Notes Documentation Provider Name and Address Organization Details Recorded Time Xr, Chest, 2 View : Chest 2 Views Frontal and Lat INDICATION/CLINICAL QUESTION: Reason: chronic cough for 2 months; Clinical Question(s): Other:; R O infiltrate mass / Other: TECHNIQUE: Frontal and lateral views of the chest. COMPARISON: 09/01/2020. FINDINGS: LINES AND TUBES: None. LUNGS AND PLEURA: RIGHT CHEST: The right lung is clear and there is no right effusion. LEFT CHEST: The left lung is clear and there is no left effusion. HEART, MEDIASTINUM AND SUZI: The heart is of normal size. The mediastinum and suzi are normal. BONES AND SOFT TISSUES: No acute bony abnormality. IMPRESSION: 1. No active disease in chest. WSN: [id number] Ordering Physician: Allison Apodaca Dictated By: Ernie Gunderson MD Dictated Date/Time: 06/27/24 12:03 p Reviewed By: Ernie Gunderson MD Signed By: Ernie Gunderson MD Signed Date/Time: 06/27/24 12:03 pm Transcribed By: CSJennifer Transcribed Date/Time: 06/27/24 12:03 pm Patient Class: Outpatient Allison Apodaca MD [address] [facility] [address], [place], [address], [facility] 06/27/2024 12:26:54 Problems Name Problem SNOMED Code Status Onset Date Resolution Date Notes Provider Name and Address Organization Details Recorded Time Shoulder joint pain 291170283 Completed 201211/17/2013 IMPRESSI ON: WOULD NOT RECCOMEN D X-RAY. PT ORDER. F/U IF NOT IMPROVIN G; RECORDED 10/03/19 13 11:35AM BY STEFFANY ALLRED MA, ANNOTATI ON/LUCRETIA Apodaca MD [address], [place], [address] , [facility] 6 07:25:24 Acute sinusiti s 83759281 Completed 201211/17/2013 RECORDED 10/03/19 13 11:35AM BY STEFFANY ALLRED MA, ANNOTATI ON/CANDICE Ricks [address] [facility] [address], [place], [address] , [facility] 4 10:50:28 Allergic rhinitis 64470767 Active Not Available [facility] 1 11:13:07 Anxiety state 803951722 Active no meds; not currentl y an issue Not Available [facility] 1 11:13:07 Tobacco user 393422189 Completed 04/26/2014 Allison Apodaca MD [address] [address], [place], [address] , [facility] 6 07:25:24 History of clinical finding in subject 911692439 Completed 04/26/2014 Allison Apodaca MD [address] [address], [place], [address] , [facility] 6 07:25:24 Asthma 114346119 Completed 04/24/2017 uses proair reevesn Allison Apodaca MD [address] [address], [place], [address] , [facility] 3 09:51:42 Acute asthma 709811896 Completed 04/24/2017 Leonora Olmos MA null, [facility] 7 15:14:00 Screenin g for malignan t neoplasm of breast Completed 201211/17/2013 RECORDED 10/03/19 13 11:35AM BY STEFFANY ALLRED MA, ANNOTATI ON/LUCRETIA Apodaca MD [address] [facility] [address], [place], [address] , [facility] 6 07:25:24 Conjunct ivitis 8971289 Completed 201211/17/2013 RECORDED 07/11/19 13 2:41PM BY CK TRIPATHI MA, FRANSISCAATI ON/LUCRETIA Apodaca MD [address] [facility] [address], [place], [address] , [facility] 6 07:25:24 Cough 19800441 Completed 201211/17/2013 IMPRESSI ON: SHE IS SAMINA Charles THAT HAS PNEUMONI A AND WOULD LIKE CXR OR ANTIBIOT ICS; RECORDED 10/03/19 13 11:35AM BY STEFFANY ALLRED MA, ANNOTATI ON/LUCRETIA Apodaca MD [address] [facility] [address], [place], [address] , [facility] 6 07:25:24 Referred otalgia 44079938 Completed 201211/17/2013 IMPRESSI ON: THIS MAY BE FROM ALLERGIE S CREATING EUSTACHI ON TUBE DYSFUNCT ION. SHE WILL TRY A DECONGES TANT AND WAS ALSO GIVEN AN ENT REFERRAL . SHE WILL MAKE AN APPT IF HER SX PERSIST. ; RECORDED 05/08/19 13 8:57AM BY STEFFANY ALLRED MA, SPEEDY ON/LUCRETIA Apodaca MD [address] [facility] [address], [place], [address] , [facility] 6 07:25:24 Influenz a vaccine needed [id number] 06 Completed 201111/17/2013 RECORDED 02/05/20 12 10:38AM BY YUN SAVAGE I, OFFICE VISIT Allison Apodaca MD [address] [facility] [address], [place], [address] , [facility] 6 07:25:24 Pure hypercho lesterol emia 748310378 Completed 07/31/2016 Allison Apodaca MD [address] [facility] [address], [place], [address] , [facility] 7 10:44:33 Renewal of prescrip tion Completed 201211/17/2013 RECORDED 05/08/19 13 8:57AM BY STEFFANY ALLRED MA, SPEEDY ON/ADDEN DUM Allison Apodaca MD [address] [facility] [address], [place], [address] , [facility] 6 07:25:24 Obesity 833985855 Completed 201111/17/2013 IMPRESSI ON: SHE IS WORKING ON WEIGHT LOSS, IMPROVIN G DIET AND EXERCISI NG MORE.; RECORDED 02/05/20 12 8:12AM BY SPEEDY RODRIGUEZ ON/ADDMARTÍN Apodaca MD [address] [address], [place], [address] , [facility] 6 07:25:24 Active or passive immuniza tion Completed 201211/17/2013 RECORDED 05/08/19 13 9:34AM BY ELSA VELIZ PA-C, OFFICE VISIT Allison Apodaca MD [address] [facility] [address], [place], [address] , [facility] 6 07:25:24 Adult health examinat ion Completed [...] BY SPEEDY RODRIGUEZ ON/LUCRETIA Apodaca MD [address] [facility] [address], [place], [address] , [facility] 6 07:25:24 Disorder of upper respirat ory system 172475925 Completed 201211/17/2013 RECORDED 07/09/19 13 8:45AM BY STEFFANY ALLRED MA, PSEEDY ON/LUCRETIA Apodaca MD [address] [address], [place], [address] , [facility] 6 07:25:24 Obstruct aditya sleep apnea syndrome 55203256 Active CPAP Not Available [facility] 1 11:13:07 Administ ration of diphther ia and tetanus vaccine Completed 201211/17/2013 RECORDED 07/09/19 13 8:45AM BY STEFFANY ALLRED MA, SPEEDY ON/LUCRETIA Apodaca MD [address] [address], [place], [address] , [facility] 6 07:25:24 Acute upper respirat ory infectio n 60673008 Completed 201211/17/2013 IMPRESSI ON: COMPLETE D ZPACK 4 DAYS AGO, NO ADDITION AL ABX NECESSAR Y; RECORDED 10/23/19 13 3:36PM BY SPEEDY RODRIGUEZ ON/LUCRETIA Apodaca MD [address] [address], [place], [address] , [facility] 6 07:25:24 Shoulder joint pain 084053181 Completed 201212/14/2013 IMPRESSI ON: WOULD NOT RECCOMEN D X-RAY. PT ORDER. F/U IF NOT IMPROVIN G; RECORDED 10/03/19 13 11:35AM BY STEFFANY ALLRED MA, SPEEDY ON/LUCRETIA Apodaca MD [address] [address], [place], [address] , [facility] 6 07:25:24 Acute sinusiti s 32308588 Completed 201212/14/2013 RECORDED 10/03/19 13 11:35AM BY STEFFANY ALLRED MA, FRANSISCAATI ON/ADDEN DUM CANDICE Salas [address] [facility] [address], [place], [address] , [facility] 4 10:50:28 Screenin g for malignan t neoplasm of breast Completed 201212/14/2013 RECORDED 10/03/19 13 11:35AM BY STEFFANY ALLRED MA, FRANSISCAATI ON/ADDEN JEET Apodaca MD [address] [facility] [address], [place], [address] , [facility] 6 07:25:24 Conjunct ivitis 8235408 Completed 201212/14/2013 RECORDED 07/11/19 13 2:41PM BY CK TRIPATHI MA, SPEEDY ON/LUCRETIA Apodaca MD [address] [address], [place], [address] , [facility] 6 07:25:24 Cough 63195629 Completed 201212/14/2013 IMPRESSI ON: SHE IS CONCERNE D THAT HAS PNEUMONI A AND WOULD LIKE CXR OR ANTIBIOT ICS; RECORDED 10/03/19 13 11:35AM BY STEFFANY ALLRED MA, SPEEDY NORRIS/LUCRETIA Apodaca MD [address] [address], [place], [address] , [facility] 6 07:25:24 Referred otalgia 40115021 Completed 201212/14/2013 IMPRESSI ON: THIS MAY BE FROM ALLERGIE S CREATING EUSTACHI ON TUBE DYSFUNCT ION. SHE WILL TRY A DECONGES TANT AND WAS ALSO GIVEN AN ENT REFERRAL . SHE WILL MAKE AN APPT IF HER SX PERSIST. ; RECORDED 05/08/19 13 8:57AM BY STEFFANY ALLRED MA, SPEEDY ON/LUCRETIA Apodaca MD [address] [address], [place], [address] , [facility] 6 07:25:24 Influenz a vaccine needed [id number] 06 Completed 201112/14/2013 RECORDED 02/05/20 12 10:38AM BY YUN SAVAGE I, OFFICE VISIT Allison Apodaca MD [address] [facility] [address], [place], [address] , [facility] 6 07:25:24 Renewal of prescrip tion Completed 201212/14/2013 RECORDED 05/08/19 13 8:57AM BY STEFFANY ALLRED MA, ANNOTATI ON/ADDEN DUM Allison Apodaca MD [address] [facility] [address], [place], [address] , [facility] 6 07:25:24 Obesity 239649075 Completed 201112/14/2013 IMPRESSI ON: SHE IS WORKING ON WEIGHT LOSS, IMPROVIN G DIET AND EXERCISI NG MORE.; RECORDED 02/05/20 12 8:12AM BY YUN SAVAGE I, ANNOTATI ON/ADDEN DUM Allison Apodaca MD [address] [facility] [address], [place], [address] , [facility] 6 07:25:24 Active or passive immuniza tion Completed 201212/14/2013 RECORDED 05/08/19 13 9:34AM BY ELSA VELIZ PA-C, OFFICE VISIT Allison Apodaca MD [address] [facility] [address], [place], [address] , [facility] 6 07:25:24 Adult health examinat ion Completed [...] BY SPEEDY RODRIGUEZ ON/LUCRETIA Apodaca MD [address] [facility] [address], [place], [address] , [facility] 6 07:25:24 Disorder of upper respirat ory system 636046730 Completed 201212/14/2013 RECORDED 07/09/19 13 8:45AM BY STEFFANY ALLRED MA, SPEEDY ON/LUCRETIA Apodaca MD [address] [facility] [address], [place], [address] , [facility] 6 07:25:24 Administ ration of diphther ia and tetanus vaccine Completed 201212/14/2013 RECORDED 07/09/19 13 8:45AM BY STEFFANY ALLRED MA, SPEEDY ON/LUCRETIA Apodaca MD [address] [facility] [address], [place], [address] , [facility] 6 07:25:24 Acute upper respirat ory infectio n 74320670 Completed 201212/14/2013 IMPRESSI ON: COMPLETE D ZPACK 4 DAYS AGO, NO ADDITION AL ABX NECESSAR Y; RECORDED 10/23/19 13 3:36PM BY SPEEDY RODRIGUEZ/LUCRETIA Apodaca MD [address] [facility] [address], [place], [address] , [facility] 6 07:25:24 Postmeno pausal bleeding 53978858 Active seen by Dr Karine murguia; had endometr ial biopsy which was negative . Not Available [facility] 11:13:07 Low back pain 591377222 Active Not Available [facility] 11:13:07 Sciatica 75863347 Active Not Available [facility] 11:13:07 Tinea pedis 2549169 Active Not Available [facility] 1 11:13:07 Hyperlip idemia 70282076 Active 2016 Not Available [facility] 1 11:13:07 Acute urticari a 059708859 Completed 201604/24/2017 JACKELIN Fernandez, [facility] 7 15:14:04 Abscess of chest wall 56817676 Active 2016 I&Ded by Dr Huerta. Not Available [facility] 1 11:13:07 Elevated blood-pr essure reading without diagnosi s of hyperten seferino 835022264 Completed 201601/21/2019 Allison Apodaca MD [address], [place], [address] , [facility] 9 10:23:23 Moderate persiste nt asthma 307187712 Active 2016 Not Available [facility] 1 11:13:07 Cholecys titis 90167591 Active 2017 secondar y to stones; admitted to [facility] 10/07- Not Available [facility] 1 11:13:07 Arthriti s of right hip 39361020352 60661 Active 2018 seen at [facility]; [facility] Allison Apodaca MD [address], [place], [address] , [facility] 3 08:53:32 Gastroes ophageal reflux disease 852886839 Active 2018 Not Available [facility] 1 11:13:07 Exposure to SARS-CoV -2 Completed 07/08/2020 Removal Reason: Problem added by user maddison bartlett from the COVID-19 watch flag Allison Apodaca MD [address], [place], [address] , [facility] 1 11:13:27 Hyperten sive renal disease 71504946 Active 2020 Not Available [facility] 1 11:13:07 History of SARS-CoV -2 45347807307 3161586 Active 2021 Allison Apodaca MD [address] [address], [place], [address] , [facility] 2 12:57:05 Plantar fasciiti s of left foot 37156365628 488681 Active 2021 Seen at [facility] Allison Apodaca MD [address] [address], [place], [address] , [facility] 2 18:35:40 Closed fracture of phalanx of foot 17006870 Active 2022 Small toe after trauma. Seen by ortho. [facility]. Allison Apodaca MD [address] [address], [place], [address] , [facility] 3 11:54:04 Chronic kidney disease stage 1 849907138 Active 2022 Nikki fermin, [facility] 3 10:22:01 Intermit tent asthma 304681208 Active 2023 Allison Apodaca MD [address] [address], [place], [address] , [facility] 4 07:58:32 Acute bronchit is 84037146 Active 2023 Baldev Gray [facility] [address] [address], [place], [address] , [facility] 4 10:49:28 Exacerba tion of moderate persiste nt asthma 854758672 Active 2023 Baldev [facility] [address] [address], [place], [address] , [facility] 4 10:49:34 Acute sinusiti s 35070762 Active 2023 RECORDED 10/03/19 13 11:35AM BY STEFFANY ALLRED MA, ANNOTATI ON/ADDCANDICE Hart [address] [facility] [address], [place], [address] , [facility] 4 10:50:28 Pain of left shoulder joint 36083881691 689226 Active 2023 Jamin Gong PA-C [address] [facility] [address], [place], [address] , [facility] 4 12:23:42 Constipa tion 87701763 Active 2023 Jamin Gong PA-C [address] [facility] [address], [place], [address] , [facility] 4 12:25:47 Skin lesion 05416304 Active 2023 Ceci fermin [facility] 4 16:25:29 Microsco pic hematuri a 360223165 Active 2024 Benign; seen by urology, Dr Schrader . Allison Apodaca MD [address] [facility] [address], [place], [address] , [facility] 5 16:27:32 Overacti ve urinary bladder 597662673 Active 2024 On meds and followed bu urology. Allison Apodaca MD [address] [facility] [address], [place], [address] , [facility] 5 16:28:20 Problem Notes None recorded. Procedures Surgical History Date Name Laterality Status Provider Name and Address Organization Details Recorded Time 01/17 Most Recent Mammogram completed Shala Nuno [facility] 4 14:14:20 01/17 Mammogram screening completed Shala Nuno [facility] 4 14:14:14 06/14 Date of Last Pap Smear completed Gabriela Mcdonald [facility] 3 13:56:18 01/31 Date of Last Colonoscopy completed Priscil rodolfo Mayo [facility] 1 09:45:40 01/31 colonoscopy completed Iwonavandana Mayo [facility] 1 09:45:35 01/31 esophagogastroduodenoscopy completed Prisc illdanii Mayo [facility] 1 12:05:14 10/07 Cholecystectomy completed Allison Apodaca MD [address], [place], [address] , [facility] 8 16:59:05 05/06 Appendectomy completed Jil Manriquez MA [facility] 2 09:33:11 Laparotomy completed Yun Melgar [facility] [facility] 9 09:27:24 Cologuard completed Antonia Varela MA [facility] 1 15:12:25 Imaging Results None recorded. Procedure Notes None recorded. Medical Equipment None Reported. Allergies Allergen ID Allergen Name Allergen Category Reaction Reaction Severity Criticality Documentation Date Start Date Code Code System Note Provider Name and Address Organization Details Recorded Time Non-stero idal anti-infl ammatory agent (product) medicatio n hives severe Not available 07/06/2014 15906 005 SNOMED Breat [facility] 5 09:40:53 10753 Substance with sulfonami de structure and antibacte rial mechanism of action (substanc e) medicatio n hives Not available Not available 01/30/2017 99773 8003 SNOMED Allison martinez MD [address], [place], [address], [facility] 7 18:52:09 86591 acetamino phen / hydrocodo ne medicatio n hives Not available Not available 10/10/2017 70435 2 RxNorm JACKELIN Swanson, [facility] 2 11:35:22 59355 Dilaudid medicatio n rash moderate Not available 10/24/20172017 09456 3 RxNorm Jessi Alegria RN null, [facility] 8 10:44:22 06942 tetracycl ine medicatio n Not available Not available Not available 09/16/2019 63708 RxNorm JACKELIN Diaz, [facility] 3 15:55:59 38069 polymyxin B medicatio n Not available Not available Not available 09/16/2019 8536 RxNorm Vickilewis fermin, [facility] 0 13:35:12 92698 erythromy harry medicatio n Not available Not available Not available 09/16/2019 4053 RxNorm Vickilewis fermin, [facility] 0 13:35:12 71002 ibuprofen medicatio n hives Not available Not available 09/16/2019 5640 RxNorm JACKELIN Swanson, [facility] 2 11:35:18 17916 aspirin medicatio n hives Not available Not available 09/16/2019 1191 RxNorm JACKELIN Swanson [facility] 2 11:35:17 61790 naproxen medicatio n Not available Not available Not available 09/16/2019 7258 RxNorm JACKELIN Swanson, [facility] 2 11:35:20 36117 lidocaine medicatio n palpitati ons Not available Not available 07/24/2022 6387 RxNorm JACKELIN Diaz, [facility] 3 15:55:53 4149 tetracycl ine hydrochlo ride medicatio n Not available Not available Not available 11/17/2013 92473 6 RxNorm Perlita Rosario MA null, [facility] 2 13:13:09 4150 Tylox medicatio n Not available Not available Not available 11/17/2013 39098 5 RxNorm Baldev Gray, [facility] [address] [facility] [address], [facility] [address], [facility] 4 16:48:26 35879 Augmentin medicatio n diarrhea severe Not available 02/18/2023 94957 2 RxNorm Enriqueta Caporale, [employer] null, [facility] 4 08:59:38 Medications Name Sig Start Date [...] Available nystatin 100,000 unit/mL oral suspensio n Take 5 mL 4 times a day by oral route for 7 days, for oral thrush. 2023 active Not Available Not Available Not Avai lable prednison e 10 mg tablet PLEASE SEE ATTACHED FOR DETAILED DIRECTIO NS 09/21 completed Not Available Not Available Not Available doxycycli ne hyclate 100 mg capsule Take 1 capsule twice a day by oral route for 7 days. 10/10 completed Not Available Not Available Not Available atorvasta tin 20 mg tablet TAKE [...] day by oral route for 7 days. 09/21 completed Not Available Not Available Not Available hydrocodo ne 5 mg-acetam inophen 325 mg tablet 11/28 completed Not Available Not Available Not Available fluconazo le 200 mg tablet Take 1 tablet every day by oral route for 14 days. 09/21 completed Not Available Not Available Not Available metronida zole 0.75 % (37.5 mg/5 [...] RECORDED 02/26/20 12 3:26PM BY ELSA VELIZ PAZainC, OFFICE VISIT; Not Available Not Available Not [...] e 5 mg-benaze pril 10 mg capsule Take 1 capsule every day by oral route for 90 days. 04/04 completed increase d dose. Not Available Not Available Not Available ciproflox acin 0.3 % eye drops [...] Available Not Available Nasonex 50 mcg/actua tion [place] EACH NOSTRIL ONCE DAILY 02/25 completed RECORDED [...] 03/07 completed RECORDED 03/14/20 12 4:23PM BY ELSA VELIZ PA-C, MEDICATI ON AUTO-KIMMIE CTIVATIO N; Not Available [...] Available doxycycli ne hyclate 100 mg tablet Take 1 tablet twice a day by oral route as directed for 10 days. 2023 active Not Available Not Available Not Avai lable ipratropi um bromide 21 mcg (0.03 %) nasal spray INHALE 2 SPRAYS INTRANAS ALLY 2 TIMES A DAY ADMINIST ER INTO EACH NOSTRIL active Not Available Not Available No t Available amoxicill in 875 mg-potass ium clavulana [...] 10 mg tablet TAKE 1 TABLET DAILY 05/30 completed Not Available Not Available Not Available cyclobenz aprine 5 mg tablet Take [...] duloxetin e 30 mg capsule,d elayed release Take 1 capsule every day by oral route for 30 days. 05/04 completed no 90 day supply Not Available Not Available Not Available Flovent HFA 110 mcg/actua tion aerosol [...] Not Available Not Available No t Available cephalexi n 750 mg capsule Take 1 capsule twice a day by oral route for 7 days. 03/06 completed Not Available Not Available Not Available miconazol e [address] 1 muco every day by buccal route as directed for 10 days. 07/31 completed Not Available Not Available Not Available loratadin e 10 mg capsule Take 1 capsule as needed by oral route. active RECORDED 10/23/19 13 3:36PM BY YUN SAVAGE I, OFFICE VISIT; Not Available Not Available Not Available OptiChamb er Queta [facility] spacer USE DIRECTED WITH INHALERS active Not Available Not Available No t Available mirabegro n ER 25 mg tablet,ex tended release 24 hr TAKE 1 TABLET BY MOUTH EVERY DAY 2024 active Not Available Not Available Not Avai lable EpiPen 2-Jesu 0.3 mg/0.3 mL injection , [...] Not Available Not Available Not Available Afluria 8566-4301 (PF) 45 mcg (15 mcg x 3)/0.5 mL IM syringe active Not Available Not Available Not Available Fluarix Quad 4642-5618 (PF) 60 mcg (15 mcg x 4)/0.5 mL IM syringe 06/19 completed Not Available Not Available Not Available Fluarix Quad 8789-0443 (PF) 60 mcg (15 mcg x 4)/0.5 [...] blood by Pulse oximetry Body temperature Systolic And Diastolic Provider Name and Address Organization Details Last Updated DateTime 5 158.75 cm 34.4 kg/m2 36102.1 4 g 81 /min 97 % 97 % 98.5 [degF] 158/91 mm[Hg] Dariela Rios MA [facility] 5 14:55:39 Date Recorded Body height Body mass index (BMI) Body weight Heart rate Oxygen saturation Oxygen saturation in Arterial blood by Pulse oximetry Body temperature Systolic And Diastolic Provider Name and Address Organization Details Last Updated DateTime 5 158.75 cm 34.4 kg/m2 17303.1 4 g 106 /min 96 % 96 % 98.1 [degF] 148/89 mm[Hg] Dariela Rios MA [facility] 5 10:55:25 Date Recorded Body height Body mass index (BMI) Body weight Heart rate Oxygen saturation Oxygen saturation in Arterial blood by Pulse oximetry Body temperature Systolic And Diastolic Provider Name and Address Organization Details Last Updated DateTime 5 158.75 cm 34.4 kg/m2 02824.1 4 g 96 /min 95 % 95 % 97.8 [degF] 116/77 mm[Hg] Dariela Rios MA [facility] 5 15:37:18 Date Recorded Body height Body mass index (BMI) Body weight Oxygen saturation Oxygen saturation in Arterial blood by Pulse oximetry Heart rate Body temperature Systolic And Diastolic Provider Name and Address Organization Details Last Updated DateTime 5 158.75 cm 35.3 kg/m2 16231.2 g 98 % 98 % 87 /min 97.7 [degF] 113/66 mm[Hg] Leonora Olmos MA [facility] 5 09:57:02 Date Recorded Body height Body mass index (BMI) Body weight Heart rate Oxygen saturation Oxygen saturation in Arterial blood by Pulse oximetry Body temperature Systolic And Diastolic Provider Name and Address Organization Details Last Updated DateTime 5 158.75 cm 34.9 kg/m2 82632.9 2 g 83 /min 96 % 96 % 98.2 [degF] 115/75 mm[Hg] Salazar campos MA [facility] 5 11:17:30 Social History Question Answer Notes LastModified by Organizat ion Details LastModified Time Tobacco Smoking Status Former Smoker quit in 2009 Not Available [employer] 03/08/2020 03:36:34 Do You Have An Advance Directive? Yes [email or web address] Information not available 02/05/2022 Is Blood Transfusion Acceptable In An Emergency? Yes [id number] Information not available 03/08/2020 What Is Your Level Of Caffeine Consumption? None Information not available 01/24/2022 How Much Tobacco Do You Chew? None [id number] Information not available 03/08/2020 What Type Of Diet Are You Following? REGULAR [id number] Information not available 03/08/2020 Which Illicit Or Recreational Drugs Have You Used? None [id number] Information not available 03/08/2020 When Did You Quit Smoking? 11-15years [email or web address] igarette Information not available 11/23/2020 Live Alone Or With Others? With Others Boyfriend [email or web address] Information not available 02/05/2022 Do You Take Precautions To Prevent Distracted Driving? Yes ivana Information not available 07/27/2015 How Often Do You Need To Have Someone Help You When You Read Instructions, Pamphlets, Or Other Written Material From Your Doctor Or Pharmacy? Never [email or web address] Information not available 07/27/2015 Have You Served [...] Sons And 2 Daughters 1 Daughter In [place] 1 Son In [place] 2 Grandchildren (1 Girl And 1 Boy) [email or web address] Information not available 01/24/2022 What Is Your Current Pack Years? 30ormorepa ckyears [email or web address] Information not available 02/05/2022 Do You Use Protection During Sex? No [id number] Information not available 03/08/2020 Do You Use Your Seat Belt Or Car Seat Routinely? Yes Information not available 01/24/2022 Seat Belts Used Routinely Yes [email or web address] Information not available 02/05/2022 Are You Sexually Active? Yes [id number] Information not available 03/08/2020 Smoke Alarm In Home Yes Information not available 02/05/2022 Do You Have Smoke And Carbon Monoxide Detectors In Your Home? Yes Information not available 01/24/2022 At What Age Did You Start Smoking Tobacco? 15 In 1975 [id number] Information not available 03/08/2020 Are You Passively Exposed To Smoke? No Information not available 07/31/2016 How Much Tobacco Do You Smoke? 1 PPD [id number] Information not available 03/08/2020 Do You Use Sunscreen Routinely? Yes [id number] Information not available 03/08/2020 How Many Years Have You Smoked Tobacco? 34 Information not available 11/23/2020 Sex: Unknown Functional Status Question Answer Note LastModified by Organizat ion Details LastModified Time Do you use any illicit or recreational drugs? No [email or web address] Information not available 02/05/2022 Do you or have you ever used any other forms of tobacco or nicotine? No [email or web address] Information not available 02/05/2022 What is your level of alcohol consumption? Occasional wine [id number] Information not available 03/08/2020 Do you or have you ever used smokeless tobacco? Never used smokeless tobacco [id number] Information not available 03/08/2020 Are you currently employed? Yes [id number] Information not available 03/08/2020 Are you able to walk? YESWOREST Information not available 02/05/2022 Are you able to care for yourself? 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 Information not available 01/24/2022 Do you or have you ever used e-cigarettes or vape? Never used electronic cigarettes [email or web address] Information not available 02/05/2022 What is your exercise level? None due to hip pain Information not available 07/24/2022 Mental Status None recorded. Family History Relationship Description Onset Age of this Age Resolved Age Notes LastModified by Organization Details LastModified Time Mother Malignant tumor of breast 78 metast atic [email or web address] Not available 07/27/2015 15:22:20 Brother Crohn's disease 46 Not available 02/05 09:18:09 Father Alzheimer's disease 80 [email or web address] Not available 07/26 15:22:20 Sister Irritable bowel syndrome [email or web address] Not available 02/05 09:18:09 Sister Crohn's disease [email or web address] Not available 02/05 09:18:09 Sister Asthma [email or web address] Not availabl e 02/04/2024 16:13:51 Son Crohn's disease [email or web address] Not available 02/05 09:18:09 Unspecified Relation Crohn's disease [email or web address] Not available 02/05 09:18:09 Notes:2 sisters and 1 brothe r (brother ; she's in the middle). Medical History Condition Response Other N Gout N Blood Diseases N Kidney Stones N Hyperthyroidism N Breast Cancer N Lung Disease N COPD N Depression N Hypothyroidism N Defects or Inherited Disease N Anesthesia Complications N Headaches/Migraines N Varicose Veins N Anxiety Disorder N Obesity N Vision or Eye Problems N Arthritis Y Head Injury/Concussion N Polyps N Infertility N Congenital Anomalies N Acid Reflux (GERD) Y Cancer N Stroke N ADHD N Endometriosis Y High Cholesterol Y Liver Disease N Fibromyalgia N Kidney Disease N Heart Problems N Ear or Hearing Problems N Hospitalizations N Thyroid Problems N GI Problems Y Acne N Skin Problems N Eating Disorder N Anemia N Constipation N Bladder Problems N Mental Illness N Ovarian Cancer N Diabetes N Blood Transfusions N Seizures/Epilepsy N Tuberculosis N AIDS/HIV N Congestive Heart Failure (CHF) N Eczema Y Diverticulitis N Abuse/Domestic Violence N Allergies Y Asthma Y Reflux/GERD N Hepatitis N Pulmonary Embolism N Hypertension N Osteoporosis N Chicken Pox N Autism Spectrum Disorder (ASD) N Gynecological History Statement/Question Response Date of [...] virus, trivalent, PF 5 completed Iwona fermin [facility] 03/10/2021 14:23:35 Influenza, split virus, quadrivalent, preservative 6 completed Not Available [facility] 04/04/2023 08:38:45 Influenza, split virus, quadrivalent, PF 6 completed JACKELIN Swanson [facility] 02/05/2022 11:35:05 Influenza, split virus, quadrivalent, PF 7 completed JACKELIN Swanson [facility] 02/05/2022 11:35:05 Influenza, MDCK, quadrivalent, PF 9 completed JACKELIN Lundy [facility] 04/10/2021 09:32:02 Influenza, split virus, quadrivalent, preservative 0 completed Not Available [facility] 04/04/2023 08:38:45 COVID-19, mRNA, LNP-S, PF, 30 mcg/0.3 mL dose 1 completed JACKELIN Lundy [facility] 04/10/2021 09:32:02 COVID-19, mRNA, LNP-S, PF, 30 mcg/0.3 mL dose 1 completed JACKELIN Lundy [facility] 04/10/2021 09:32:02 COVID-19, mRNA, LNP-S, PF, 100 mcg/0.5mL dose or 50 mcg/0.25mL dose 1 completed JACKELIN Swanson [facility] 02/05/2022 11:35:05 Influenza, split virus, quadrivalent, PF 1 completed JACKELIN Lundy [facility] 04/10/2021 09:32:02 Influenza, split virus, quadrivalent, PF 0 completed JACKELIN Lundy [facility] 04/10/2021 09:32:02 Novel [id number], preservative-free 9 completed JACKELIN Lundy [facility] 04/10/2021 09:32:02 Influenza, split virus, trivalent, preservative 5 completed JACKELIN Lundy [facility] 04/10/2021 09:32:02 pneumococcal polysaccharide PPV23 7 completed JACKELIN Lundy [facility] 04/10/2021 09:32:02 Influenza, split virus, trivalent, preservative 1 completed JACKELIN Lundy [facility] 04/10/2021 09:32:02 Influenza, split virus, trivalent, preservative 0 completed JACKELIN Lundy [facility] 04/10/2021 09:32:02 Influenza, split virus, trivalent, preservative 9 completed JACKELIN Lundy, [facility] 04/10/2021 09:32:02 Td (adult), 2 Lf tetanus toxoid, preservative free, adsorbed 4 completed JACKELIN Lundy [facility] 04/10/2021 09:32:02 Influenza, split virus, trivalent, preservative 6 completed JACKELIN Lundy, [facility] 04/10/2021 09:32:02 pneumococcal polysaccharide PPV23 8 completed JACKELIN Swanson [facility] 02/05/2022 11:35:05 Influenza, split virus, quadrivalent, PF 8 completed JACKELIN Swanson [facility] 02/05/2022 11:35:05 Influenza, split virus, trivalent, PF 4 completed JACKELIN Swanson [facility] 02/05/2022 11:35:05 Influenza, split virus, quadrivalent, PF 2 completed JACKELIN Swanson, [facility] 02/05/2022 11:35:05 influenza, seasonal, intradermal, preservative free 2 completed Iwona fermin [facility] 03/10/2021 14:23:35 Tdap 3 completed JACKELIN Lundy [facility] 04/10/2021 09:32:02 pneumococcal polysaccharide PPV23 3 completed Iwona fermin [facility] 03/10/2021 14:23:35 Influenza, split virus, quadrivalent, PF 3 completed Allison Apodaca MD [address] [address], [place], [address], [facility] 01/30/2023 12:43:57 Td (adult), 2 Lf tetanus toxoid, preservative free, adsorbed 3 completed Allison Apodaca MD [address] [address], [place], [address], [facility] 01/30/2023 12:43:57 Influenza, split virus, trivalent, PF 4 completed Jamin Gong PA-C [address] [address], [place], [address], [facility] 01/13/2024 19:55:47 Past Encounters Encounter ID Performer Location Encounter Start Date Encounter Closed Date Diagnosis/Indication Diagnosis SNOMED-CT Code Diagnosis ICD10 Code Diagnosis Note [id number] auto[facility]Comm erce [address] [facility] [place] [place] [address] 11/06/2011 00:00:00 [id number] autoEComm erce [address] [facility] [place] [place] [address] 02/05/2012 00:00:00 [id number] autoEComm erce [address] [facility] [place] [place] [address] 02/26/2012 00:00:00 [id number] autoEComm erce [address] [facility] [place] [place] [address] 03/14/2012 00:00:00 [id number] auto[facility]Comm erce [address] [facility] [place] [place] [address] 05/08/2012 00:00:00 [id number] autoEComm erce [address] [facility] [place] [place] [address] 07/08/2012 00:00:00 [id number] autoEComm erce [address] [facility] [place] [place] [address] 09/10/2012 00:00:00 [id number] autoEComm erce [address] [facility] [place] [place] [address] 10/02/2012 00:00:00 [id number] autoEComm erce [address] [facility] [place] [place] [address] 10/22/2012 00:00:00 [id number] CANDICE Ordonez Main Office [address] [facility] [address] [place] [address] 02/08/2014 08:11:50 02/08/2014 09:37:08 Postmenopausal bleeding 43202962 We will schedule CONTROL OPERATOR appt for pt for further eval. Needs infl uenza immunization [id number] Ruma barnett MD Main Office [address] [facility] [address] [place] [address] 03/27/2014 09:41:05 03/27/2014 10:39:57 Low back pain 574453699 5 days of pain without obvious cause, hx of disc herniation 2001 with steroid injections . pt to take meds belwo and see [facility], needs PT, strengthen ing in core adn exercise, if all else fails discussed breast reduction as possible helping [id number] Allison Apodaca MD Main Office [address] [facility] [address] [place] [address] 04/26/2014 16:06:58 04/26/2014 16:45:46 Sciatica 97631070 this was probably brought on by being in the lithotomy position during an extended period during her CONTROL OPERATOR procedure. She has improved. No further w/u needed and she doesn't need to make an appointmen t with [facility]. [id number] Allison Apodaca MD Main Office [address] [address] [place] [address] 07/06/2014 09:25:20 07/06/2014 10:32:19 Adult health examination 457354685 Tinea pedis 9987402 she thought this was eczema and she used a steroid cream on the area w/o much help. She will try OTC clotrimazo le for fungal rash and will call here or make a derm appointmen t if it persists. [id number] Allison Apodaca MD Main Office [address] [facility] [address] [place] [address] 07/27/2015 15:03:35 07/27/2015 16:03:20 Pure hypercholesterolemia 703502403 E78.0 Adult heal th examination 165015095 Z00.00 Obstructiv e sleep apnea syndrome 75619215 G47.33 [id number] Jamin Gong PA-C Main Office [address] [facility] [address] [place] [address] 06/19/2016 11:29:04 06/19/2016 12:44:51 Pneumonia 921876950 J18.9 finish abx as directed. pt requests oow note for the rest of the week. will attempt to get formal cxr report Sinusitis 50239447 J32.9 see below - can add on 3 add'l days of rx if warranted Asthma 659654478 J45.31 see below 25 minute office visit with greater than 50% of the visit face-to-fa ce with the patient and/or family providing counseling and/or coordinati on of care. [id number] Allison Apodaca MD Main Office [address] [address] [place] [address] 07/31/2016 09:50:51 07/31/2016 11:06:46 Adult health examination 856644085 Z00.00 She is UTD with immunizati ons, colonoscop y and CONTROL OPERATOR care Hyperlipidemia 52694058 E78.5 Wants to try a different med at a lower dose. Will change from simvastati n to atorvastat in Pain of ri ght hip joint 4854121132 75350 M25.551 Community acquired pneumonia 676336797 J18.9 This may not have been pneumonia given her lack of fever and equivocal xray findings. Will check for resolution . She however states that she has had multiple episodes of CAP in the past. Skin lesion 89885962 L98 .9 [id number] Victor M martinez MD Main Office [address] [facility] [address] [place] [address] 10/09/2016 15:09:15 10/09/2016 15:48:49 Dysuria 42362438 R30.0 [id number] Allison Apodaca MD Main Office [address] [facility] [address] [place] [address] 01/30/2017 12:39:12 01/30/2017 13:23:46 Abscess 212571571 L02.91 [id number] Jamin Gong PA-C Main Office [address] [address] [place] [address] 03/06/2017 08:43:22 03/06/2017 10:01:01 Dysuria 00303721 R30.0 will check c+s -- ? sxs complicate d by underlying constipati on Acute low back pain 2788 46043 M54.5 ? upper lumbar herniated disc radiating to R flank, but see below pt requests oow note - worried about going to wedding this w/e too Right flank pain 4023360 09 R10.9 no h/o kidney stones and no cvat - suspicious for radiculopa thy and / or constipati on Lumbosacra l radiculitis 43521024 M54.17 Constipation 00776681 K5 9.00 [id number] Jamin Gong PA-C Main Office [address] [address] [place] [address] 03/11/2017 08:39:16 03/11/2017 09:38:56 Low back pain 241678152 M54.5 better, cont hep and prn m. 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 Continue ProAir HFA 90 mcg inhaler as needed Upper resp iratory infection 86281882 J06.9 Continue tylenol cold and congestion as neededReco mmend saline nasal washesFoll ow up in 2 weeks, consider ABX if no improvemen t of symptoms or worsening of symptoms Elevated blood-pressure reading without diagnosis of hypertension 765088588 R03.0 Possibly due to OTC meds. Recommende d to test BP at home after URI resolved. [id number] Anisha Gong PA-C Main Office [address] [address] [place] [address] 04/24/2017 15:09:28 04/24/2017 16:45:27 Moderate persistent asthma 028990651 J45.40 IMproved now with Symbicort. Advised to continue medication and use rescue PRN> Elevated blood-pressure reading without diagnosis of hypertension 348521682 R03.0 Avoid OTC meds /stimulant s. Check BP weekly. Reports if over 140/90. DEcrease sodium aaaadn caffeine. [id number] Allison Apodaca MD Main Office [address] [address] [place] [address] 08/01/2017 09:31:25 08/01/2017 10:36:18 Adult health examination 413990263 Z00.00 She is UTD with immunizati ons, colonoscop y and CONTROL OPERATOR care Hyperlipidemia 10130569 E78.5 Tolerating the simvastati n. Will check fasting lipid level Asthma 732167625 J45.90 9 Good control with current mgmt. Rarely uses her rescue inhaler Impacted c erumen of bilateral ears 3523472782 981772 H61.23 Administra tion of pneumococcal vaccine 24952246 Z23 [id number] Anisha Gong PA-C Main Office [address] [address] [place] [address] 09/16/2017 13:41:07 09/16/2017 15:09:51 Rib pain 368030194 R07.81 Take Tylenol ES 500 mg every 4 hours as needed for pain. Rest and avoid lefting heavy objects. Follow up if no improvemen t in symptoms or symptoms get worse. Dyspnea 781261779 R06.00 might be related to rib pain. [id number] Allison Apodaca MD Main Office [address] [address] [place] [address] 10/24/2017 14:18:27 10/24/2017 15:39:35 Essential hypertension 24328218 I10 She is not on meds but her BP has been high the last couple of visits. She will work on lifestyle changes and return in 1 month. Panic attack 610276758 F 41.0 Her lightheade dness may be related to BP vs panic attacks. Lightheadedness 22828254 8 R42 Screening for malignant neoplasm of colon 299107315 Z12.11 Mesenteric lymphadenopathy 793339121 I88.0 Described as nonspecifi c. Will refer for a colonoscop y and will repeat the CT scan in late December or January. [id number] Allison Apodaca MD Main Office [address] [facility] [address] [place] [address] 11/28/2017 08:51:37 11/28/2017 09:32:11 Essential hypertension 41257361 I10 BP continues to run high so will start a med and she will continue with lifestyle changes. Asthma 977630247 J45.90 9 Good control with current mgmt. Rarely uses her rescue inhaler Cough 26667001 R05 She will continue with her asthma treatment and no specific treatment is needed for her cough. [id number] Ruma barnett MD Main Office [address] [address] 12/06/2017 14:53:08 12/06/2017 15:37:21 Cough 04537094 R05 see below, will tx with levaquin and inhalers Moderate asthma 36674578 9 J45.901 asthma flare due to infectious component, will hold off on prednisone due to levaquin and risk of achilles tendonitis , return if not improving Acute sinusitis 48671857 J01.90 tx as below [id number] Allison Apodaca MD Main Office [address] [address] 01/07/2018 09:56:58 01/07/2018 10:37:22 Asthma 717543306 J45.909 Good control with current mgmt. Rarely uses her rescue inhaler Needs infl uenza immunization 896780274 Z23 Essential hypertension 91704644 I10 BP under good control; continue current mgmt. CT of abdo men abnormal 6740603697 4600266 R93.5 [id number] Jamin Gong PA-C Main Office [address] [address] 02/17/2018 13:42:56 02/17/2018 14:42:00 Cough 21935158 R05 check cxr to r/o pna - will rx c abx if + Asthma 107368768 J45.40 see below 25 minute office visit with greater than 50% of the visit face-to-fa ce with the patient and/or family providing counseling and/or coordinati on of care. Essential hypertension 65937432 I10 stable, cont med as dir Viral uppe r respiratory tract infection 341386727 J06.9 [id number] Woo Houston MD Main Office [address] [address] [address] [place] [address] 06/18/2018 13:55:05 06/18/2018 14:50:03 Acute pharyngitis 174457277 J02.9 Sinusitis 69450695 J32.9 see below - can add on 3 add'l days of rx if warranted rec probiotic while on abx - then continue as has had some problems c belching Asthma 897075564 J45.40 lungs clear today so doubt pna 25 minute office visit with greater than 50% of the visit face-to-fa ce with the patient and/or family providing counseling and/or coordinati on of care. Essential hypertension 95059191 I10 asymptomat ic - but trending low - advised pt to simply cut 5mg norvasc in 1/2 to 2.5mg qd - cont to monitor at home - if gets > 140 then resume full 5mg tab - next f/u c pcp already scheduled for 4.1.19 Abdominal bloating 83900 9008 R14.0 rec change prn tums to prn tums anti-gas [id number] Allison Apodaca MD Main Office [address] [address] [address] [place] [address] 09/18/2018 12:43:03 09/18/2018 13:37:24 Pain of right hip joint 0398079474 30644 M25.551 Possible groin pull vs inguinal hernia. 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 Colonoscop y is due next year. Screening for malignant neoplasm of colon 373103512 Z12.11 Moderate p ersistent asthma 539380459 J45.40 Will stop symbicort at her request since she feels that it is not helping. Essential hypertension 35419161 I10 BP under good control; continue current mgmt. Arthritis of right hip 9785787488 508963 M13.851 She is considerin g an injection and will call [facility] to schedule an appointmen t. [id number] Allison Apodaca MD [facility] [address] [facility] [address] [place] [address] 09/16/2019 08:09:32 09/16/2019 09:58:29 Essential hypertension 13201699 I10 BP running high. She will increase her amlodipine from 2.5 to 5 mg. Asthma 274233397 J45.90 9 Good control with current mgmt. Rarely uses her rescue inhaler. She will stop her symbicort when allergy season as passed. Hyperlipidemia 96620676 E78.5 Tolerating the simvastati n. Will check fasting lipid level at Gastroesop hageal reflux disease 759277451 K21.0 This has improved since changing her diet and currently no taking any meds. Cough 49632698 R05 She will continue with her asthma treatment. We will also check her for COVID since this cough is different from her usual cough. Also with MEJIA. Exposure t o viral disease 4906456852 34053 Z03.818 Dry cough and MEJIA. [id number] Ruma barnett MD [facility] [address] [facility] [address] [place] [address] 03/04/2020 06:16:17 03/04/2020 13:49:53 Muscle pain 33866324 M79.10 Has new muscle pain in her legs, will do some labs to see if related to statin. If negative, pt needs to come in to the office to have legs evaluated Essential hypertension 19738560 I10 BP running ok on current med, if leg pain persists to be seen in office, told CCB can cause some peripheral edema. Hyperlipidemia 04871259 E78.5 labs to assess statin dose Moderate p ersistent asthma 894425209 J45.40 continue with baseline inhalers, call if any worsening sx. Counseling 247426710 Z71 .9 Health advice, education or counseling done for COVID 19 Exposure t o viral disease 6605174340 04970 Z20.828 Pt will get tested at [facility] today or tomorrow, needs to quarantine at home until the results come back. No work until a negative test result [id number] Ruma barnett MD [facility] [address] [facility] [address] [facility] [place] [address] 05/27/2020 14:21:33 05/30/2020 13:52:12 Cough 78031075 R05 otc cough med prn, stay on inhalers and if not improving may need steroid taper. Ok to have covid vaccine in a few weeks if feeling better. Exposure t o viral disease 9774065281 26146 Z20.828 Due to cough need covid testing. She needs to quarantine at home until the results come back. No work until a negative test result. Pt having vaccine on 06/10/20, no allergy to toradol but is allergic to asa and nsaid. Allergy to toradol is contraindi cation to covid vaccine due to preservati ve in toradol and not the nsaid component. Pneumonia 338600260 J18. 9 Rest, start antibiotic s and can use otc cough med as needed, stay on current inhalers. Call if not improving within a few days to a week, sooner if worsening. . [id number] Allison Apodaca MD [facility] [address] [place] [address] 06/06/2020 06:58:00 06/06/2020 12:06:31 Essential hypertension 02468554 I10 BP running high. She will increase her amlodipine from 2.5 to 5 mg. Gastroesop hageal reflux disease 290979320 K21.9 Still with symptoms despite PPI. Advised taking it twice daily, we discussed losing weight and also putting blocks under the head of the bed. [id number] Allison Apodaca MD Main Office [address] [place] [address] 07/07/2020 15:41:08 07/07/2020 16:34:44 Dysuria 37961676 R30.9 Actually nondescrip t abdominal pain that is difficult for her to localize. No evidence for an infection on urine dip. Will send culture. Rib pain 569344295 R07.8 1 Xray done and no fracture noted. Upper abdominal pain 831 12024 R10.10 Already had her gallbladde r removed. Doubt GERD since pain is not epigastric and is not related to meals although the pain is worse at night. We will get a CT scan and refer her to GI for further evaluation . [id number] Allison Apodaca MD Main Office [address] [facility] [address] [place] [address] 11/08/2020 14:56:04 11/08/2020 15:51:36 Dysuria 78497833 R30.9 Actually nondescrip t abdominal pain that is difficult for her to localize. No evidence for an infection on urine dip. Will send culture. Low back pain 661246737 M54.5 Possibly muscular pain. Flexeril has not been helping and cannot take NSAIDs. Kidney stones are a possibilit y but less likely because pain is bilateral. Gallbladde r removed so not in the differenti al. 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 Had colonoscop y done at [facility]. Due for a repeat. Varicella vaccination 68 320546 Z23 Advised to get this at her pharmacy. Anxiety state 699914804 F41.1 Essential hypertension 94925351 I10 Good control; continue current mgmt. Screening for malignant neoplasm of colon 670536407 Z12.11 [id number] Allison Apodaca MD Main Office [address] [facility] [address] [place] [address] 04/10/2021 09:22:13 04/10/2021 10:24:37 Preseptal cellulitis 733321848 L03.213 [id number] Allison Apodaca MD Main Office [address] [facility] [address] [place] [place] [address] 05/30/2021 08:12:53 06/01/2021 12:15:38 Hypertensive renal disease 93355446 I12.9 She will increase her amlodipine from 2.5 mg to 5 mg daily. Nasal congestion 3622333 0 R09.81 She will try saline nasal spray at first and if that doesn't help she will change to a steroid nasal spray. Chronic ki dney disease stage 2 653712091 N18.2 [id number] Allison Apodaca MD [facility] [address] [facility] [address] [place] [address] 06/22/2021 10:53:12 06/23/2021 11:07:16 Hypertensive renal disease 29999148 I12.9 She is tolerating the increased dose of amlodipine and will call us tomorrow with her BP reading. Allergic rhinitis 020156 04 J30.9 She will change her nasal spray to see if this works better than the flonase and is not as drying. Her symptoms may be from the environmen t at work. Chronic ki dney disease stage 2 525888292 N18.2 [id number] Allison Apodaca MD [facility] [address] [place] [address] 01/18/2022 08:24:21 01/22/2022 09:43:10 COVID-19 059359822 U07.1 She understand s that she should hold her simvastati n while taking the paxlovid. 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 Had a colonoscop y in [address] Holder and due again in 2030. Needs infl uenza immunization 784328137 Z23 Hyperlipidemia 39909850 E78.5 Tolerating the simvastati n. Will check fasting lipid level. Asthma 040467504 J45.90 9 Generally good control with current mgmt. Rarely uses her rescue inhaler. She will stop her symbicort when allergy season as passed. If wheezes persists she will do a course of prednisone which she has at home. Chronic ki dney disease stage 2 409545742 N18.2 Hypertensi ve renal disease 98997548 I12.9 She is tolerating the increased dose of amlodipine and will call us tomorrow with her BP reading. History of SARS-CoV-2 29 79711777 78375025 Z86.16 Still with cough and fatigue. Has been vaccinated and boosted. [id number] Woo Houston MD Main Office [address] [facility] [address] [place] [address] 02/05/2022 09:17:37 02/05/2022 13:05:25 Acute sinusitis 57162091 J01.90 Given second sickening symptoms since COVID [...] or if asthma starts to flare. Asthma 439911667 J45.40 [id number] CHLOÉ CHAVEZ MD Main Office [address] [facility] [address] [place] [address] 04/19/2022 14:47:11 04/19/2022 15:43:52 Dysuria 88488257 R30.0 - pt complainin g of foul smelling urine and increased urinary frequency- urine dip stick showing moderate leukocytes - will send for UA and urine culture- pt was started on macrobid, will check urine culture for sensitivit ies. Pain of mu ltiple joints 13995266 M25.50 - pt has been having pain [...] gical disorders Edema of l ower extremity 597289574 R60.0 - pt having increased tightness and edema in the left lower extremity- ordered doppler studies to ensure no DVT Pain of le ft hip joint 6294752677 38415 M25.552 - most likely due to OA- pt is currently on lidocaine patches- pt was given tizanidine however patient did not start medication yet because she was nervous- pt was also started on meloxicam however she is allergic- gave patient a steroid taper- pt to start physical therapy- pt has been steroid injections in the joints [id number] CHLOÉ CHAVEZ MD Main Office [address] [place] [address] 04/26/2022 12:54:32 04/26/2022 14:27:27 Pain of multiple joints 27601099 M25.50 - pt has been having pain [...] visit Pain of le ft hip joint 4541353850 63916 M25.552 - most likely due to OA- pt is currently on lidocaine patches and started taking the muscle relaxer (tizanidin e 2mg nightly)- pt was also started on meloxicam however she is allergic- steroid paper provided moderate relief- pt as not yet started PT- pt has been steroid injections in the joints- pt continue to follow-up with [facility] Dysuria 43540384 R30.0 - improved- urine dip stick showing moderate leukocytes - urine culture was negative, pt completed antibiotic treatment Edema of l ower extremity 729808856 R60.0 - pt having increased tightness and edema in the left lower extremity- lower extremity doppler was negative Arthritis of right hip 2194464474 195770 M13.851 - symptoms are currently well controlled [id number] Allison Apodaca MD Main Office [address] [address] [address] [place] [address] 07/24/2022 15:35:00 07/24/2022 16:21:03 Hypertensive renal disease 54392170 I12.9 She is tolerating the amlodipine and has had good BP readings. Continue current mgmt. Eczema 19980341 L30.9 Tried an anti-funga l cream on the area w/o much help. Pain of bi lateral hip joints 8772398344 5888504 M25.552 She has end-stage OA and is scheduled for hip replacemen t by Dr Green. The right will be done 08/13/22 and the left the following month. Her pre-op is scheduled for later this month at [facility]. Low back pain 477682664 M54.50 It is unclear if this is secondary to her hip pain or if it is a separate issue. Chronic ki dney disease stage 2 594735885 N18.2 [id number] Allison Apodaca MD Main Office [address] [address] [address] [place] [address] 12/06/2022 11:32:06 12/06/2022 12:05:31 Pain of toe of right foot 1561340173 64686 M79.674 Probable toe sprains but will get an xray to evaluate. Explained to her that it could take 6 months to improve. She is not requesting meds at this time. 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 Had a colonoscop y in [address] Holder and due again in 2030. She is UTD with COVID vaccine and was advised to get the booster at her pharmacy. She was also advised to get the shingles vaccine. We will give her the flu and tetanus today. We discussed exercise and cardiac risk factors. Needs infl uenza immunization 524025977 Z23 Chronic ki dney disease stage 2 418608606 N18.2 Hypertensi ve renal disease 21186695 I12.9 Running high so will change her med. D/c amlodipine and start amlodipin/ benazepril Hyperlipidemia 03532333 E78.5 Tolerating the simvastati n. Will check fasting lipid level. Moderate p ersistent asthma 884979395 J45.40 Uses maintenanc e inhaler and rarely uses her rescue inhaler. Obstructiv e sleep apnea syndrome 41485623 G47.33 Stable with CPAP. Requires a tetanus booster 649713322 Z23 Varicella vaccination 68 072702 Z23 Advised to get this at her pharmacy. [id number] Darryl Moran MD Main Office [address] [facility] [address] [place] [address] 02/02/2023 10:16:23 02/02/2023 11:04:23 COVID-19 520012363 U07.1 Tylenol OTC, not to exceed package [...] sx worsent then go to nearest ED [id number] Darryl Moran MD Main Office [address] [facility] [address] [place] [address] 02/13/2023 08:59:52 02/13/2023 09:31:25 Post-acute COVID-19 8254600080 U09.9 discussed possibilit y of rebound infection after Paxlovid, encouraged extra rest and hydration. Acute sinusitis 54985741 J01.90 begin abx as directed for 10 days on full stomach , add probiotics . Nasal saline 2-3 times daily. Avoid decongesta nts due to elevated blood pressure. Moderate p ersistent asthma 030567994 J45.40 persistent cough , but no evidence of pneumonia or wheezing on the exam. Continue current asthma medication s. Hypertensi ve renal disease 52363867 I12.9 Restart amlodipine benazepril today, continue low sodium diet. Check blood pressure at home. F/u with PCP as scheduled next month. Chronic ki dney disease stage 2 189725903 N18.2 [id number] Allison Apodaca MD Main Office [address] [place] [address] 04/04/2023 08:37:05 04/04/2023 09:19:14 Hypertensive renal disease 62069008 I12.9 BP still running a little high. Will increase her dose of amlodipine -benazepri l from 09/12 to 02/22. Some improvemen t on meds. Will increase her dose and check labs. Hyperlipidemia 90088411 E78.5 Tolerating the simvastati n. Will check fasting lipid level. Chronic ki dney disease stage 1 786520841 N18.1 [id number] Allison Apodaca MD [facility] [address] [place] [address] 07/03/2023 10:01:27 07/03/2023 11:02:38 Acute bronchitis 87342887 J20.9 Exacerbati on of moderate persistent asthma 404805105 J45.41 continue inhaler use. Notes Breyna not working as well as symbicort and she is feelign dizzy, heart racing when she takes it. she will give it a little more time. Acute sinusitis 33566057 J01.90 Hydration, rest, tylenol or ibuprofen as needed, tea with honey, OTC cough meds as needed. [id number] Allison Apodaca MD Main Office [address] [place] [address] 07/11/2023 13:38:15 07/11/2023 14:08:25 Candidiasis of mouth 35832370 B37.0 x1 week-was on prednisone course for asthma exacerbati on and is on Breyna inhaler-pt completed the prednisone course and noticed white spots on her tongue-PE revealed raised, white patches on the tongue-quang l have pt complete x10 day course of miconazole -discussed with pt proper usage of inhaler with rinses after each use [id number] Allison Apodaca MD Main Office [address] [place] [address] 08/01/2023 08:46:52 08/01/2023 09:17:55 Hypertensive renal disease 73938458 I12.9 Good control; continue current mgmt. Candidiasis of mouth 797 88687 B37.0 Treated with diflucan and resolved. Hyperlipidemia 94562615 E78.5 Tolerating atorvastat in. Will check fasting lipid level. Chronic ki dney disease stage 1 838666053 N18.1 [id number] Allison Apodaca MD Main Office [address] [address] 10/16/2023 14:49:36 10/16/2023 15:25:36 Cough 56371940 R05.9 Secondary to URI and possibly PND from allergies. No role for abx. Upper resp iratory infection 59266141 J06.9 Symptomati c treatment. [id number] Woo Houston MD Main Office [address] [address] 11/18/2023 15:46:29 11/18/2023 17:00:01 Upper abdominal pain 55969236 R10.10 ruq pain x ~ 2 wks - had lap ubaldo 6.18? SE to doxysee below - wonder if has hepatic flexure syndrome vs other Nausea 709614952 R11.0 if no help c nida tea or flat nida vladimir, then trial c prn zofran Constipation 89557906 K5 9.00 see above/belo w - rec colace qd, stay well hydrated Early satiety 806650296 R68.81 ? if d/t above constipati on/hepatic flexure syndromewo nder if has gastric outlet obstructio n - check ugis/sbft Acute sinusitis 54574759 J01.90 stop doxy -- cough better - wonder if above sxs d/t SE Gastroesop hageal reflux disease 099487305 K21.9 [address] ppi as dir [id number] Woo Houston MD Main Office [address] [facility] [address] [facility] [place] [address] 12/03/2023 11:23:26 12/03/2023 12:14:01 Pain of left shoulder joint 5500479475 9147357 M25.512 see below - will check xray - if + fx then will get ortho evalcont tyl, ice Fall W19.XXXA fell out of bed accidental ly, landed on L shoulder Obstructiv e sleep apnea syndrome 77924170 G47.33 cont cpap Early satiety 619257909 R68.81 ? if d/t above constipati on/hepatic flexure syndromewo nder if has gastric outlet obstructio n - check ugis/sbft 7.30.24 - looks like barium swallow was ordered instead of ugis/sbft - will change c plastic mixer Constipation 95638091 K5 9.00 see above/belo w - rec colace qd, stay well hydrated 7.30.24 - ruq pain a little better but not resolved - still pooping 'pellets' - rec change to laxaclear 1 scoop 1-2 times/day, stop colace? has hepatic flexure syndrome [id number] Woo Houston MD Main Office [address] [place] [address] 01/13/2024 15:49:29 01/13/2024 17:05:06 Skin lesion 59670187 L98.9 On right arm x 8 days from getting hit with a metal door.Appea rs to be healing - cont triple abx ointment 2-3 times/day. Return to clinic if worsens or fails to improve.re c stop hydrogen peroxideof fered reassuranc e - has evidence of reactive hyperemia and no evidence of cellulitis Tetanus UTD Pain of le ft shoulder joint 6231305041 4153496 M25.512 see below - will check xray - if + fx then will get ortho evalcont tyl, ice 9.24 - better but not resolved, cont hep, pt declined PT/ortho at this time, may consider if no better Needs infl uenza immunization 314400267 Z23 19 YEARS AND OLDER ONLY [id number] Allison Apodaca MD Main Office [address] [facility] [address] [place] [address] 02/04/2024 15:43:12 02/04/2024 16:40:54 Adult health examination 437614166 Z00.00 She is UTD with immunizati ons 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 Had a colonoscop y in [address] Holder and due again in 2030. She is UTD with COVID vaccine and was advised to get the booster at her pharmacy. She was also advised to get the shingles vaccine. We will give her the flu and tetanus today. We discussed exercise and cardiac risk factors. Hypertensi ve renal disease 09269541 I12.9 Running the last couple of times. Will increase her dose of amlodipine 10-benazap ril 20 mg to 10/40 mg. Chronic ki dney disease stage 1 950301842 N18.1 Hyperlipidemia 11355476 E78.5 Tolerating atorvastat in. Will check fasting lipid level next appointmen t. Intermittent asthma 4276 43075 J45.20 Well-contr olled with current mgmt. Eczema 89704369 L30.9 Possible contact dermatitis . Gastroesop hageal reflux disease 098827553 K21.9 Still with symptoms despite PPI. Advised taking it twice daily, we discussed losing weight and also putting blocks under the head of the bed. Obstructiv e sleep apnea syndrome [id number] G47.33 Stable with CPAP. [id number] Allison Apodaca MD Main Office [address] [facility] [address] [place] [address] 03/17/2024 14:26:11 03/17/2024 16:22:34 Abdominal pain [id number] R10.9 Unclear etiology. She may need a CT scan but would like to hold off until she sees GI since she may need to cover the cost of any imaging study. [id number] Allison Apodaca MD Main Office [address] [facility] [address] [place] [address] 03/23/2024 13:02:51 03/23/2024 13:33:11 Acute urinary tract infection [id number] N39.0 was evaluated at [facility] on 03/22 for UTI-was given cefpodoxim e 10 day course-adv ised by ED to repeat culture, will obtain culture and send to lab Hydronephrosis [id number] N13.30 CT scan revealed right hydronephr osis-will repeat urinalysis Chronic ki dney disease stage 1 [id number] N18.1 [id number] Allison [facility]aca MD [facility] [address] [address] [address] [place] [address] 04/16/2024 13:58:54 04/16/2024 15:40:12 Acute sinusitis [id number] J01.90 Will do an abx for her sinusitis which should also help with a presumed UTI. She will give a urine sample first before starting the abx. Dysuria 27558731 R30.9 Actually nondescrip t abdominal pain that is difficult for her to localize. No evidence for an infection on urine dip. Will send culture.SY MPTOMS:bur ronnell with urination? nofrequenc y? yeshematur ia? nolower abdominal pain? yessymptom s similar to previous UTI? yes POSSIBLE CONTRAINDI CATIONS TO TELEPHONE TREATMENT: > 65 years of age? nofevers? norecent UTI (within 1 month)? yesnew low back pain? yesnausea or vomiting? yes nausea in the morningpre gnant? nohistory of interstiti al cystitis? no PROVIDER ACTION: Reviewed nursing notes?Bruce mmended action Antibiotic treatment [id number] Darryl Moran MD Main Office [address] [place] [address] 06/13/2024 10:38:11 06/16/2024 08:35:13 Exposure to Influenzavirus [id number] Z20.828 Respirator y syncytial virus infection 95987404 B97.4 Viral syndrome 633468027 B34.9 [id number] Allison Apodaca MD Main Office [address] [address] [place] [address] 06/23/2024 14:49:36 06/23/2024 15:31:43 Acute bronchitis 17713552 J20.9 Probable viral infection. No abx needed. She will treat her symptoms with OTC meds. Expiratory wheezing [id number] [id number] R06.2 She was on a 6-day course of steroids but had rebound in her symptoms once she stopped. Will do an extended course of prednisone to prevent rebound. Acute sinusitis 74971463 J01.90 Started doxycyclin e 2 days ago. Spoke to the on-call doctor. [id number] Allison Apodaca MD Main Office [address] [address] [place] [address] 06/27/2024 10:46:51 06/27/2024 11:27:29 Chronic cough 76726608 R05.3 Since her cough has been an intermitte nt problem since mid April (2 months ago) I will refer her to pulmonolog y for further evaluation . She continues to have symptoms on prednisone and inhalers/u pdrafts. Candidiasis of mouth [id number] 54142 B37.0 We treated her in the past for this but her symptoms have returned. She is at risk because of steroid use and abx use. Candidiasi s of the esophagus 43899426 B37.81 Treat for 2 weeks with diflucan. Will refer to GI if this persists. [id number] Allison Apodaca MD Main Office [address] [place] [address] 09/21/2024 15:27:41 09/21/2024 15:53:11 Acute pharyngitis 071177947 J02.9 in office strep test is negative-l ikely viral-endo rses symptoms of sore throat, pain with swallowing food-denie s of any fever, chills, sob, wheezing, sinus pain-discu ssed conservati ve measuremen ts Seasonal allergy 0839596 04 J30.2 -takes claritin daily-was given nasal spray by pulmonolog ist, has not started- [id number] Allison Apodaca MD Main Office [address] [place] [address] 09/23/2024 09:48:24 09/23/2024 10:20:28 Sore throat 415499788 J02.9 in office strep test is negativex1 week of symptoms-l ikely viral-endo rses symptoms of sore throat, pain with swallowing food, fatigue-de nies of any fever, chills, sob, wheezing, sinus pain-discu ssed conservati ve measuremen ts [id number] Allison Apodaca MD Main Office [address] [facility] [address] [place] [address] 09/26/2024 10:51:40 09/26/2024 11:57:17 Acute cough [id number] 28090116 R05.1 Secondary to URI and possibly PND from allergies. May also be secondary to COPD. Acute exac erbation of chronic obstructive pulmonary disease 187853568 J44.1 Secondary to URI and possibly PND from allergies. No role for abx. Chronic ob structive pulmonary disease 20369530 J44.9 recently diagnosed and followed by pulmonary. The dx was recently confirmed by PFT's. Health Concerns Section Related Observation LastModified by Organization Detai ls LastModified Time None Recorded Concern Status LastModified by Organization Details LastModified Time None Recorded Advance Directives Directive Y: Payers Insurance Date Sequence Insurance Name Policy Number Policy Lan Covered Member ID Lan Member ID Guarantor Name 09/26/2024 1 [facility] [id number] Renee Pradhan [id number] Renee Pradhan 01/15/2019 1 [facility] Renee Pradhan [id number] Renee Pradhan 01/15/2019 1 [facility] [id number] Renee Pradhan [id number] Renee Pradhan Notes Date Note Type Note Provider Name and Address Organization Details Recorded Time 06/23/2024 text/html She has been hav ing [...] SOB and wheezing. Allison Apodaca MD [address] [facility] [address], [place], [address], [facility] 06/23/2024 17:55:09 06/27/2024 text/html She comes in [...] and discomfort swallowing. Allison Apodaca MD [address] [facility] [address], [place], [address], [facility] 06/27/2024 13:21:59 09/21/2024 text/html Throat PainRepor mook bypatient.Location:bi lateral Quality:aching; sore Severity:mild Duration:4 days Onset/Timing:abrupt Associated Symptoms:no fever; no ear pain; no ear infection Renee is a 64yr old F who presents for a sore throat x4 days. Reports throat feels like a golf ball . Reports of difficulty eating solids, no issues with fluids. Endorses PND. Denies of any wheezing, SOB, fever/chills, cough/congestion. Endorses seasonal allergies in which she takes claritin for. 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 FELICITA RENE [address] [address], [place], [address], [facility] 09/22/2024 22:10:15 09/23/2024 text/html Throat PainRepor mook bypatient.Location:bi lateral Quality:aching; sore Severity:mild Duration:4 days Onset/Timing:abrupt Associated Symptoms:no fever; no ear pain; no ear infection 09/23/24Continues to endorse a sore throat. Reports of noticing spots on the back of her throat. Associated symptoms of PND, fatigue, and full sensation in throat. Denies of any fever, chills, sob/wheezing, sinus pain. 09/21/24Renee is a 64yr old F who presents for a sore throat x4 days. Reports throat feels like a golf ball . Reports of difficulty eating solids, no issues with fluids. Endorses PND. Denies of any wheezing, SOB, fever/chills, cough/congestion. Endorses seasonal allergies in which she takes claritin for. 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 FELICITA RENE [address] [address], [place], [address], [facility] 09/23/2024 10:33:32 09/26/2024 text/html Started with a c ough 10 days ago and hurts to swallow. Seen here 09/21 and had a negative strep and negative again 09/23. Two days ago up all night coughing and yellow mucous. Cough is all day and all night. She denies f/c. She was recently diagnosed with COPD and had PFT's confirming this. She is followed by pulmonary. Allison Apodaca MD [address] [facility] [address], [place], [address], [facility] 09/26/2024 13:20:50 OBGyn Episode No OBEpisode recorded.
== END ==
LOC: HO.SL 20:30
PROVIDERS: PCP Internal Medicine; Visit Provider Nurse Practitioner Family
DX: G47.33 Obstructive sleep apnea (adult) (pediatric) (principal); R40.0 Somnolence; Z99.89 Dependence on other enabling machines and devices
CPT/HCPCS: 95810

== ENCOUNTER → 2024-11-13 21:44 | Outpatient (BNV) | payer BC, SELFPAY | PROVIDERS: PCP Internal Medicine; Visit Provider Internal Medicine | DX: G47.33 Obstructive sleep apnea (adult) (pediatric) (principal) | CPT/HCPCS: 95810 ==

== ENCOUNTER 2024-12-11 14:58 | Outpatient (AMB) | payer BC, SELFPAY ==
--- OUTSIDE RECORDS SUMMARY | 2024-12-11 15:01 | XMS_ITS | Clinical Summary ---
Author Organization [facility] Address [address] [place] [address] Care Team Providers Care Jack Strip Assembler Name Role Phone Unavailable Primary Care Provider [...]
[2024-12-11 15:04] VITALS: BP 122/80; PULSE 80; O2SAT 96; BMI 35.8
--- NOTE | 2024-12-11 15:04 | MHC.OFFVIS ---
Vital Signs 12/11/24 15:04 Height 5 ft 2.5 in Weight 199 lb BMI 35.8 BP 122/80 Blood Pressure Location Rt brachial Position Sitting Pulse 80 Pulse Source Pulse Oximeter Pulse Oximetry (%) 96 Oxygen Delivery Method Room Air Intake Visit Reasons: Asthma / PFT FU Allergies polymyxin B Allergy (Severe, Verified 12/11/24 15:08) hives erythromycin base (Erythromycin Base) Allergy (Mild, Unverified 12/11/24 15:08) MILD NSAIDS (Non-Steroidal Anti-Inflamma (Nsaids) Allergy (Mild, Unverified 12/11/24 15:08) HIVES oxycodone (From Tylox) Allergy (Mild, Unverified 12/11/24 15:08) MILD acetaminophen (From Vicodin) Allergy (Verified 12/11/24 15:08) Rash aspirin Allergy (Verified 12/11/24 15:08) Unknown hydrocodone (From Vicodin) Allergy (Verified 12/11/24 15:08) Rash naproxen Allergy (Verified 12/11/24 15:08) Unknown Sulfa (Sulfonamide Antibiotics) Allergy (Verified 12/11/24 15:08) Unknown augmentin Adverse Reaction (Uncoded 12/11/24 15:08) abdominal pain, diarrhea HPI HPI Asthma / PFT FU: Details: Renee is a pleasnt 64 year old female, former 20 pack year smoker, quit 15 years ago with underlying asthma, allergic rhinitis, GERD and LIZZ on CPAP managed by PCP. She was initially referred by PCP for pulmonary evaluation for subacute cough which has persisted since karlos RSV this past winter, although less persistent now with associated dyspnea on exertion. She reported suboptimal control with Breyna and was switched to Trelegy with some improvement however not using albuterol MDI. She does contribute some dyspnea to increased weight, gained approximately 40 lbs over the last few years and is working towards weight loss. She was previously under the care of [facility] lung screening program last LDCT 10/2024 RADS2 with known pulmonary nodules measuring up to 4mm. She also is requesting this office to manage LIZZ. DME is [facility]. She recently underwent in lab PSG and presents to review results. [facility] Social History Patient Tobacco Use Status: Former Tobacco user Cigarette Packs Per Day: 0.5 Years Smoked: 30+ Quit in 2007 Review of Systems Const Denies chills, Denies excessive sweating, Denies fever(s), Denies headache(s) and Denies night sweats Eyes Denies dry eyes, Denies irritation and Denies itchy eyes ENT Reports Normal hearing present and Denies headache(s) Card Denies chest pain, Denies chest pain at rest, Denies chest pain with activity, Denies claudication, Denies leg edema, Denies dyspnea, Denies dyspnea on exertion, Denies orthopnea and Denies paroxysmal nocturnal dyspnea Resp Reports cough, Denies excessive phlegm production, Denies pain on inspiration, Denies pain with cough, Denies dyspnea, Denies dyspnea on exertion, Denies stridor and Denies wheezing Musc Denies myalgias Neuro Reports Normal hearing present and Denies headache(s) Endo Denies excessive sweating Payam/Lymph Denies lymphadenopathy Aller/Immun Denies itchy eyes, Denies seasonal rhinorrhea and Denies wheezing Physical Exam Vital Signs: Last Vital Signs Pulse 80 12/11/24 15:04 BP 122/80 12/11/24 15:04 Pulse Ox 96 12/11/24 15:04 Oxygen Delivery Method Room Air 12/11/24 15:04 BMI result Body Mass Index 35.8 Const General: cooperative, healthy appearing, comfortable, no acute distress, well developed and alert Nutritional Appearance: obese Orientation/consciousness: patient oriented x3 Limitations: no limitations HEENT Head: Yes normal to inspection, Yes normocephalic and Yes atraumatic Ears: hearing grossly normal bilaterally and external ears normal Eyes General: appearance normal, both eyes and all related structures Eyelids: Yes eyelids normal Sclerae: sclerae normal EOM: EOMs intact bilaterally Neck Neck: Yes normal visual inspection and Yes no lymphadenopathy Lymphatic: no lymphadenopathy noted Chest Chest palpation & inspection: normal inspection of the chest Resp Effort & Inspection: normal respiratory effort, able to speak in complete sentences, no audible wheezes, no stridor, not tachypneic, no tripod positioning and no use of accessory muscles Cardio Jugular venous distension: no JVD Rate: regular rate Rhythm: regular rhythm Skin Other: warm, dry General skin exam: no rashes or lesions noted Neuro General: patient oriented x3 Cranial nerves: Yes Normal hearing present Cognition (Neuro): normal cognition Gait exam (Neuro): Normal gait present Extrem General: Yes normal to inspection, Yes capillary refill normal, Yes no clubbing, cyanosis or edema and Yes no pedal edema Psych Appearance: grossly normal and well kempt Speech and movement: Normal speech and movement present and Clear speech present Affect: normal affect Attitude: cooperative Thought process: Normal thought process present Thought content: Normal thought content present Insight: Good insight present (Psych) Judgement: Good judgement present (Psych) Results Reviewed Results Reviewed: RESULT: CT Chest LDCT Lung Program CT Chest LDCT Lung Program INDICATION: LAST ELIGIBLE IF LRAD 1 OR 2 LDCT LUNG CANCER SCREENING PROGRAM. FORMER,QUIT AT AGE 54, 30 PACK YEAR HX; NO CHEST CT IN THE 12 LAST MONTHS. NO LUNG CA, SIGNS OR SYPMTOMS. Visit type: Baseline TECHNIQUE: Low-dose helical CT of the chest without IV contrast (Adult Lung Cancer Screening) protocol was performed. Coronal reformats were obtained. Weight-based protocol using automatic tube modulation was used to optimize exposure parameters. CTDIvol Body: 2.66 mGy, DLP Body: 91 mGy*cm. COMPARISON: None FINDINGS: LUNG NODULES (measured on thin axial series 5): RIGHT lung: There are a few scattered groundglass nodules measuring up to 4 mm in the right upper lobe LEFT lung: None. OTHER FINDINGS: [employer] Prevention Specialist view findings, lines and tubes: None. Trachea and airways: Patent without evidence of tracheal or endobronchial lesion. Lungs and pleura: Mild subsegmental linear scarring or atelectasis in the lower lungs. No effusion or pneumothorax. Mediastinum and suzi: No mass or hematoma. No mediastinal or hilar lymphadenopathy. No esophageal abnormality. Heart: Heart is normal in size. No pericardial effusion. Severe coronary artery calcification. Aorta: Mild vascular calcification but no aneurysm. Pulmonary arteries: Normal caliber. Chest wall soft tissues: No acute abnormality. Diaphragm: Small fat-containing right Bochdalek hernia. Upper abdomen: Status post cholecystectomy. Bones: No acute abnormality. IMPRESSION: 1. Small right upper lobe groundglass nodules measuring up to 4 mm. LungRad Category: 2 Benign Appearance or Behavior. Nodules with a very low likelihood of becoming a clinically active cancer due to size or lack of growth. Given no comparison exam, 12 month follow-up chest CT is recommended. 2. No significant additional findings requiring further evaluation. Lung-RAD Category Modifier: None. Categorization based on Lung-RADS 2022 criteria. [email or web address] WSN: [id number] Ordering Physician: Raymundo Apodaca Reason For Exam LAST ELIGIBLE IF LRAD 1 OR 2LDCT LUNG CANCER SCREENING PROGRAM. FORMER,QUIT AT AGE 54,30 PACK YEAR HX;Other: Signature Line Dictated By: Naif Simental MD Dictated Date/Time: 10/28/24 2:38 pm Reviewed By: Naif Simental MD Signed By: Naif Simental MD Signed Date/Time: 10/28/24 2:38 pm Transcribed By: ARSALAN Transcribed Date/Time: 10/28/24 2:33 pm Assessment & Plan Assessment & Plan (1) Asthma-COPD overlap syndrome: Code(s): J44.89 - Other specified chronic obstructive pulmonary disease Category: Medical (2) Cough: Code(s): R05.9 - Cough, unspecified Category: Medical (3) Environmental allergies: Code(s): Z91.09 - Other allergy status, other than to drugs and biological substances Category: Medical (4) Personal history of tobacco use: Code(s): Z87.891 - Personal history of nicotine dependence Category: Social Hx (5) LIZZ on CPAP: Code(s): G47.33 - Obstructive sleep apnea (adult) (pediatric) Category: Medical (6) Pulmonary nodule: Code(s): R91.1 - Solitary pulmonary nodule Category: Medical Plan Encouraged patient to use albuterol MDI PRN in addition to Trelegy. Patient currently managed on CPAP therapy but has had a significant weight gain and reports worsening daytime fatigue and sent for updated PSG. Reviewed PSG which revealed severe LIZZ AHI 31 with minimal nocturnal hypoxemia however likely underestimated given poor sleep efficiency. She states normally no issues sleeping but different sleep environment contributed to poor sleep. Will send order to [facility] for CPAP therapy APAP mode [id number] and follow compliance report to ensure effectiveness. May need to consider in lab titration study however patient would like to defer at this time. Chest CT through [facility] RADS2 for 4 mm pulmonary nodule. Will repeat in one year to assess stability, She is requesting this to be sent to [facility]. All questions were answered and patient is in agreement of plan. Will follow up 8-10 weeks or sooner if needed. Orders: Orders CT chest wo IV con 10 Months R91.1 - Solitary pulmonary nodule Coding Level of Care Code Est Pt Level 4 (36479) Diagnoses Asthma-COPD overlap syndrome J44.89 Cough R05.9 Environmental allergies Z91.09 Personal history of tobacco use Z87.891 LIZZ on CPAP G47.33 Pulmonary nodule R91.1
== END 2024-12-11 16:01 | disposition home or self-care (01) ==
LOC: HO.HPSW 14:59
PROVIDERS: PCP Internal Medicine; Visit Provider Nurse Practitioner Family
DX: J44.89 Other specified chronic obstructive pulmonary disease (principal); R05.9 Cough, unspecified; Z91.09 Other allergy status, other than to drugs and biological substances; Z87.891 Personal history of nicotine dependence; G47.33 Obstructive sleep apnea (adult) (pediatric); R91.1 Solitary pulmonary nodule
CPT/HCPCS: 99214

== ENCOUNTER 2025-01-25 16:24 | Outpatient (REF) | payer BC, SELFPAY | END 2025-01-25 16:25 | disposition home or self-care (01) | LOC: HO.XRAY 16:24 | PROVIDERS: PCP Internal Medicine; Visit Provider Nurse Practitioner Family | DX: R05.9 Cough, unspecified (principal) | CPT/HCPCS: 71046 ==

== ENCOUNTER → 2025-01-25 16:29 | Outpatient (BNV) | payer BC, SELFPAY | PROVIDERS: PCP Internal Medicine; Visit Provider Radiology Diagnostic Radiology | DX: R05.9 Cough, unspecified (principal) | CPT/HCPCS: 71046 ==

== ENCOUNTER 2025-02-19 15:33 | Outpatient (AMB) | payer BC, SELFPAY ==
--- NOTE | 2025-02-19 15:36 | MHC.OFFVIS ---
Vital Signs 02/19/25 15:38 Height 5 ft 2.5 in Weight 195 lb 6 oz BMI 35.2 BP 124/66 Blood Pressure Location Rt brachial Position Sitting Pulse 88 Pulse Source Pulse Oximeter Pulse Oximetry (%) 96 Oxygen Delivery Method Room Air Intake Visit Reasons: Asthma / PFT FU Allergies polymyxin B Allergy (Severe, Verified 02/19/25 15:40) hives erythromycin base (Erythromycin Base) Allergy (Mild, Unverified 02/19/25 15:40) MILD NSAIDS (Non-Steroidal Anti-Inflamma (Nsaids) Allergy (Mild, Unverified 02/19/25 15:40) HIVES oxycodone (From Tylox) Allergy (Mild, Unverified 02/19/25 15:40) MILD acetaminophen (From Vicodin) Allergy (Verified 02/19/25 15:40) Rash aspirin Allergy (Verified 02/19/25 15:40) Unknown hydrocodone (From Vicodin) Allergy (Verified 02/19/25 15:40) Rash naproxen Allergy (Verified 02/19/25 15:40) Unknown Sulfa (Sulfonamide Antibiotics) Allergy (Verified 02/19/25 15:40) Unknown doxycycline Adverse Reaction (Intermediate, Verified 02/19/25 15:40) Abdominal Pain augmentin Adverse Reaction (Uncoded 02/19/25 15:40) abdominal pain, diarrhea HPI HPI Asthma / PFT FU: Details: Renee is a pleasnt 64 year old female, former 20 pack year smoker, quit 15 years ago with underlying asthma, allergic rhinitis, GERD and LIZZ on CPAP managed by PCP. Overall patient reports improvements with the use of Trelegy. Unfortunately she did contract COVID, requiring Paxlovid and continues with dry cough, not using albuterol MDI. She notes cough tends to worsen while at work questioning potential environmental exposures. Prior PSG revealed severe LIZZ AHI 31 with minimal nocturnal hypoxemia however likely underestimated given poor sleep efficiency, order previously placed for overnight oximetry. She has been using CPAP therapy and benefitting from use. DME is [facility], unable to access compliance report at this time. She was previously under the care of [facility] lung screening program initial LDCT 10/2024 RADS2 with pulmonary nodules measuring up to 4mm and reports [facility] is no longer following nodules through the screening program. [facility] Social History (Updated 02/24/25 @ 21:27 by Karin Bush NP) Patient Tobacco Use Status: Former Tobacco user Cigarette Packs Per Day: 0.5 Years Smoked: 30+ Review of Systems Const Denies chills, Denies excessive sweating, Denies fever(s), Denies headache(s) and Denies night sweats Eyes Denies dry eyes, Denies irritation and Denies itchy eyes ENT Reports Normal hearing present and Denies headache(s) Card Denies chest pain, Denies chest pain at rest, Denies chest pain with activity, Denies claudication, Denies leg edema, Denies orthopnea and Denies paroxysmal nocturnal dyspnea Resp Reports cough, Denies excessive phlegm production, Denies pain on inspiration, Denies pain with cough and Denies stridor Musc Denies myalgias Neuro Reports Normal hearing present and Denies headache(s) Endo Denies excessive sweating Payam/Lymph Denies lymphadenopathy Aller/Immun Denies itchy eyes and Denies seasonal rhinorrhea Physical Exam Vital Signs: Last Vital Signs Pulse 88 02/19/25 15:38 BP 124/66 02/19/25 15:38 Pulse Ox 96 02/19/25 15:38 Oxygen Delivery Method Room Air 02/19/25 15:38 BMI result Body Mass Index 35.2 Const General: cooperative, healthy appearing, comfortable, no acute distress, well developed and alert Nutritional Appearance: obese Orientation/consciousness: patient oriented x3 Limitations: no limitations HEENT Head: Yes normal to inspection, Yes normocephalic and Yes atraumatic Ears: hearing grossly normal bilaterally and external ears normal Eyes General: appearance normal, both eyes and all related structures Eyelids: Yes eyelids normal Sclerae: sclerae normal EOM: EOMs intact bilaterally Neck Neck: Yes normal visual inspection and Yes no lymphadenopathy Lymphatic: no lymphadenopathy noted Chest Chest palpation & inspection: normal inspection of the chest Resp Effort & Inspection: normal respiratory effort, able to speak in complete sentences, no audible wheezes, no stridor, not tachypneic, no tripod positioning and no use of accessory muscles Auscultation: clear to auscultation bilaterally Cardio Jugular venous distension: no JVD Rate: regular rate Rhythm: regular rhythm Skin Other: warm, dry General skin exam: no rashes or lesions noted Neuro General: patient oriented x3 Cranial nerves: Yes Normal hearing present Cognition (Neuro): normal cognition Gait exam (Neuro): Normal gait present Extrem General: Yes normal to inspection, Yes capillary refill normal, Yes no clubbing, cyanosis or edema and Yes no pedal edema Psych Appearance: grossly normal and well kempt Speech and movement: Normal speech and movement present and Clear speech present Affect: normal affect Attitude: cooperative Thought process: Normal thought process present Thought content: Normal thought content present Insight: Good insight present (Psych) Judgement: Good judgement present (Psych) Assessment & Plan Assessment & Plan (1) Asthma-COPD overlap syndrome: Code(s): J44.89 - Other specified chronic obstructive pulmonary disease Category: Medical (2) Cough: Code(s): R05.9 - Cough, unspecified Category: Medical (3) Environmental allergies: Code(s): Z91.09 - Other allergy status, other than to drugs and biological substances Category: Medical (4) Personal history of tobacco use: Code(s): Z87.891 - Personal history of nicotine dependence Category: Social Hx (5) LIZZ on CPAP: Code(s): G47.33 - Obstructive sleep apnea (adult) (pediatric) Category: Medical (6) Pulmonary nodule: Code(s): R91.1 - Solitary pulmonary nodule Category: Medical Plan Encouraged patient to use albuterol MDI PRN in addition to Trelegy. She is aware to call if symptoms do not improve. Patient currently managed on CPAP therapy, noting improvements in daytime fatigue, unable to review compliance report. Will reach out to [facility] to access and awaiting overnight oximetry results to ensure resolution of nocturnal hypoxemia with CPAP use. Initial LDCT through [facility] RADS2 for 4 mm pulmonary nodule. Will repeat in one year to assess stability, will send to [facility] [place] however patient will call insurance company to see if there are any coverage issues. All questions were answered and patient is in agreement of plan. Will follow up 3 months or sooner if needed. Coding Level of Care Code Est Pt Level 4 (58163) Diagnoses Asthma-COPD overlap syndrome J44.89 Cough R05.9 Environmental allergies Z91.09 Personal history of tobacco use Z87.891 LIZZ on CPAP G47.33 Pulmonary nodule R91.1
[2025-02-19 15:38] VITALS: BP 124/66; PULSE 88; O2SAT 96; BMI 35.2
--- OUTSIDE RECORDS SUMMARY | 2025-02-19 17:59 | XMS_ITS | Clinical Summary ---
Author Organization [facility] Address [address] [place] [address] Care Team Providers Care Procurement Representative Name Role Phone Unavailable Primary Care Provider Unavailabl e Social History Tobacco Use Types Packs/Day Years Used Date Smoking Tobacco: Never Assessed Comments Unknown Sex and Gender Information Value Date Recorded Sex Assigned at Not on file Legal Sex Female 5:22 PM EDT Gender Identity Not on file Sexual Orientation Not on file Plan of Treatment Health Maintenance Due Date Last Done Comments Advance Care Planning 1960 Hepatitis C Virus Screening 1960 HIV Screening 07/04/1972 DTaP/Tdap/Td Vaccines (1 - Tdap) 07/04/1978 Pneumococcal Vaccines 50+ (1 of 1 - PCV) 07/04/2009 Zoster (Shingles) Vaccine (1 of 2) 07/04/2009 COVID-19 Vaccine ( - 2023-2 5 season) 2025 RSV Vaccine 50 years and old er and Patients (1 - 1-dose 75+ series) 07/04/2034 Hepatitis B Vaccines Aged Out No long er eligible based on patient's age to complete this topic
--- OUTSIDE RECORDS SUMMARY | 2025-02-19 18:00 | XMS_ITS | Data Portability ---
Author Organization [facility], Main Office Address [address] [place] [address] Care Team Providers Care Community Youth Secretary Name Role Phone ALLISON APODACA Primary Care Provider MARCELA LEWIS Inbound Telemarketer MAE HUERTA Vascular Surgeon [facility] ([facility]) Orthopedic Surgeon [facility] G[address]i [address] [phone] ABBI SCHRADER Urologist [phone] YVONNE AGUDELO Marketing Executive [facility] Neurologi st Assessment No assessment recorded. Plan of Treatment Reminders Order Date Submit Date Provider Last Modified By Organization Details Last Modified Time Details Appointments FOLLOW UP 2025 03:45P M Allison martinez MD Not available Not available Not available Lab lipid panel, serum 2024 [facility] (Centralized Electronic Ordering - All Locations), Patient Can Go To The Location Of Their Choice, 02/16/2025 17:37:45 CBC w/ auto diff 2024 [facility] (Centralized Electronic Ordering - All Locations), Patient Can Go To The Location Of Their Choice, [id number] 02/16/2025 17:37:45 CMP, serum or plasma 2024 [facility] (Centralized Electronic Ordering - All Locations), Patient Can Go To The Location Of Their Choice, [id number] 02/16/2025 17:37:45 magnesium , serum or plasma 2024 [facility] (Centralized Electronic Ordering - All Locations), Patient Can Go To The Location Of Their Choice, [id number] 02/16/2025 17:37:45 rapid SARS CoV 2 Ag, QL IA, respirato ry specimen 2024 rosie In-Office Order, Internal Use Only DO Not Attach Compendium DO Not Attach Compendium, Do Not Delete/merge, [id number] 01/16/2025 10:05:33 Referral nutrition ist/dieti roxana referral 2024 colleen Not available 01/22/2025 09:09:16 hand surgeon referral - Tenosynov itis of right thumb 2024 [facility], [address], [address], [place], [address], 01/05/2025 12:44:00 Procedures cerumen removal (PROC) 2024 ALETA In-Office Order, Internal Use Only DO Not Attach Compendium DO Not Attach Compendium, Do Not Delete/merge, [id number] 01/21/2025 16:17:44 Surgeries None recorded. Imaging bone density [address] [facility], [address] [place], [address], 02/16/2025 16:41:27 MAMMO, screening , bilateral - Perform Diagnosti c Mammogram and Breast Ultrasoun d if needed / Perform Ultrasoun d Guided Aspiratio n and/or Breast Biopsy if warranted [address] [facility], [address] [place], [address], 02/16/2025 16:41:27 Medication Orders albuterol sulfate HFA 90 mcg/actua tion aerosol inhaler 2024 [facility], [facility], [place], [address], 02/16/2025 16:21:05 fluconazo le 100 mg tablet 2024 025 [email or web address] [address] [place], [address], 02/16/2025 15:47:02 Zepbound 2.5 mg/0.5 mL subcutane ous pen injector 2024 [facility]25 [email or web address] [address] [place], [address], 01/29/2025 09:10:51 Paxlovid 300 mg (150 mg x 2)-100 mg tablets in a dose pack 2024 025 [facility] [address] [place], [address], 01/21/2025 15:36:48 benzonata te 100 mg capsule 2024 025 [facility] [address] [place], [address], 01/21/2025 15:36:14 amoxicill in 500 mg capsule 2024 025 [facility] [address] [place], [address], 01/01/2025 13:45:33 clotrimaz ole 10 mg kameron 2024 025 [facility] [address] [place], [address], 01/21/2025 15:36:34 triamcino lone acetonide 0.1 % topical cream 2024 025 [facility] [address] [place], [address], 12/01/2024 14:44:52 Patient TargetsNo targets recorded. Patient Instructions Encounter Date Encounter Id Patient Instructions Last Modified By Organization Details Last Modified Time 12/01/2024 [id number] leg and ankle edema: care instructions [email or web address] Not available 12/01/2024 14:44:56 rash: care instructions acennerazzo Not available 12/01/2024 14:44:47 01/01/2025 [id number] de quervain's tenosynovitis: care instructions acennerazzo Not available 01/01/2025 13:48:59 de quervain's disease: exercises acennerazzo Not available 01/01/2025 13:48:59 01/16/2025 [id number] 10 things to do when you have covid-19 ckokar Not available 01/16/2025 10:21:47 01/21/2025 [id number] candidiasis: car e instructions acennerazzo Not available 01/21/2025 16:03:02 Starting a Weight-Loss Plan: Care Instructions [email or web address] Not available 01/21/2025 16:03:02 02/16/2025 [id number] gastroesophageal reflux disease (GERD): care instructions acennerazzo Not available 02/16/2025 16:05:15 high cholesterol : care instructions acennerazzo Not available 02/16/2025 16:05:15 chronic kidney disease: care instructions acennerazzo Not available 02/16/2025 16:05:15 learning about chronic kidney disease acennerazzo Not available 02/16/2025 16:05:15 sleep apnea: car e instructions acennerazzo Not available 02/16/2025 16:05:15 Reason for Referral Hand Surgeon Referral for Te nosynovitis Tenosynovitis of right thumb Referring Physician: [facility], Encounter Date: 01/01/2025 [address] Inspector/dietitian Refer ral for Body mass index 30+ - obesity Referring Physician: Family Melania Rojas, Encounter Date: 01/21/2025 Results Created Date Observation Date Name Description Value Unit Range Abnormal Flag Note LastModifiedBy Organization Detail LastModifiedTime 01/17/2001/16/2025 rapid SARS CoV 2 Ag, QL IA, respi rator y speci men RAPID SARS COV 2 positi ve Not Available In-Office Order Internal Use Only DO Not Attach Compendium DO Not Attach Compendium, Do Not Delete/merge, [id number] 01/16/2025 09:57:00 01/22/2001/21/2025 cerum en remov al (PROC ) done by Leonora Not Available In-Office Order Internal Use Only DO Not Attach Compendium DO Not Attach Compendium, Do Not Delete/merge, [id number] 01/21/2025 16:03:11 11/11/19 LDCT, chest , for lung cance r riae ronnell No observ ation record ed. [facility] - [facility] Information Management [address] [place], [address], 11/16/2024 12:52:46 01/06/2011/13/2024 sleep study , diagn ostic (PROC ) No observ ation record ed. [facility] [address] [facility] [address], [place], [address], 01/05/2025 08:54:17 Result Notes None recorded. Problems Name Problem SNOMED Code Status Onset Date Resolution Date Notes Provider Name and Address Organization Details Recorded Time Allergic rhinitis 75273969 Active Not Available [facility] 11:13:07 Anxiety state 456366694 Active no meds; not currentl y an issue Not Available [facility] 11:13:07 Tobacco user 968050901 Completed 04/26/2014 Allison Apodaca MD [address], [place], [address] , [facility] 6 07:25:24 History of clinical finding in subject 688728328 Completed 04/26/2014 Allison Apodaca MD [address], [place], [address] , [facility] 6 07:25:24 Asthma 721382264 Completed 04/24/2017 uses proair prn Allison Apodaca MD [address] [facility] [address], [place], [address] , [facility] 3 09:51:42 Acute asthma 256144790 Completed 04/24/2017 Leonora Olmos [facility], [facility] 7 15:14:00 Pure hypercho lesterol emia 348301423 Completed 07/31/2016 Allison Apodaca MD [address] [facility] [address], [place], [address] , [facility] 7 10:44:33 Obstruct aditya sleep apnea syndrome 75193918 Active CPAP Not Available [facility] 11:13:07 Postmeno pausal bleeding 66569526 Active seen by Dr Karine murguia; had endometr ial biopsy which was negative . Not Available [facility] 11:13:07 Low back pain 553051943 Active Not Available [facility] 11:13:07 Sciatica 50742558 Active Not Available [facility] 11:13:07 Tinea pedis 3352235 Active Not Available [facility] 11:13:07 Exposure to SARS-CoV -2 Completed 07/08/2020 Removal Reason: Problem added by user maddison bartlett from the COVID-19 watch flag Allison Apodaca MD [address] [facility] [address], [place], [address] , [facility] 1 11:13:27 Influenz a vaccine needed 86093347760 06 Completed 201111/17/2013 RECORDED 02/05/20 12 10:38AM BY YUN SAVAGE I, OFFICE VISIT Allison Apodaca MD [address] [facility] [address], [place], [address] , [facility] 6 07:25:24 Obesity 022655226 Completed 201111/17/2013 IMPRESSI ON: SHE IS WORKING ON WEIGHT LOSS, IMPROVIN G DIET AND EXERCISI NG MORE.; RECORDED 02/05/20 12 8:12AM BY SPEEDY RODRIGUEZ/LUCRETIA Apodaca MD [address] [address], [facility] [place], [address] , [facility] 6 07:25:24 Adult health examinat ion Completed [...] BY SPEEDY RODRIGUEZ ON/LUCRETIA Apodaca MD [address] [address], [place], [address] , [facility] 6 07:25:24 Influenz a vaccine needed 45497146245 06 Completed 201112/14/2013 RECORDED 02/05/20 12 10:38AM BY YUN SAVAGE I, OFFICE VISIT Allison Apodaca MD [address] [address], [place], [address] , [facility] 6 07:25:24 Obesity 854480037 Completed 201112/14/2013 IMPRESSI ON: SHE IS WORKING ON WEIGHT LOSS, IMPROVIN G DIET AND EXERCISI NG MORE.; RECORDED 02/05/20 12 8:12AM BY SPEEDY RODRIGUEZ/LUCRETIA Apodaca MD [address] [address], [place], [address] , [facility] 6 07:25:24 Adult health examinat ion Completed [...] BY SPEEDY RODRIGUEZ ON/LUCRETIA Apodaca MD [address] [facility] [address], [place], [address] , [facility] 6 07:25:24 Referred khoi [id number] Completed 201211/17/2013 IMPRESSI ON: THIS MAY BE FROM ALLERGIE S CREATING EUSTACHI ON TUBE DYSFUNCT ION. SHE WILL TRY A DECONGES TANT AND WAS ALSO GIVEN AN ENT REFERRAL . SHE WILL MAKE AN APPT IF HER SX PERSIST. ; RECORDED 05/08/19 13 8:57AM BY STEFFANY ALLRED MA, SPEEDY ON/LUCRETIA Apodaca MD [address] [facility] [address], [place], [address] , [facility] 6 07:25:24 Renewal of prescrip tion Completed 201211/17/2013 RECORDED 05/08/19 13 8:57AM BY STEFFANY ALLRED MA, SPEEDY ON/LUCRETIA Apodaca MD [address] [facility] [address], [place], [address] , [facility] 6 07:25:24 Active or passive immuniza tion Completed 201211/17/2013 RECORDED 05/08/19 13 9:34AM BY ELSA VELIZ PA-C, OFFICE VISIT Allison Apodaca MD [address] [facility] [address], [place], [address] , [facility] 6 07:25:24 Referred khoi [id number] Completed 201212/14/2013 IMPRESSI ON: THIS MAY BE FROM ALLERGIE S CREATING EUSTACHI ON TUBE DYSFUNCT ION. SHE WILL TRY A DECONGES TANT AND WAS ALSO GIVEN AN ENT REFERRAL . SHE WILL MAKE AN APPT IF HER SX PERSIST. ; RECORDED 05/08/19 13 8:57AM BY STEFFANY ALLRED MA, SPEEDY ON/LUCRETIA Apodaca MD [address] [facility] [address], [place], [address] , [facility] 6 07:25:24 Renewal of prescrip tion Completed 201212/14/2013 RECORDED 05/08/19 13 8:57AM BY STEFFANY ALLRED MA, SPEEDY ON/LUCRETIA Apodaca MD [address] [facility] [address], [place], [address] , [facility] 6 07:25:24 Active or passive immuniza tion Completed 201212/14/2013 RECORDED 05/08/19 13 9:34AM BY ELSA VELIZ PA-C, OFFICE VISIT Allison Apodaca MD [address] [facility] [address], [place], [address] , [facility] 6 07:25:24 Disorder of upper respirat ory system Completed 201211/17/2013 RECORDED 07/09/19 13 8:45AM BY STEFFANY ALLRED MA, SPEEDY ON/LUCRETIA Apodaca MD [address] [facility] [address], [place], [address] , [facility] 6 07:25:24 Administ ration of diphther ia and tetanus vaccine Completed 201211/17/2013 RECORDED 07/09/19 13 8:45AM BY STEFFANY ALLRED MA, SPEEDY NORRIS/LUCRETIA Apodaca MD [address] [facility] [address], [place], [address] , [facility] 6 07:25:24 Disorder of upper respirat ory system Completed 201212/14/2013 RECORDED 07/09/19 13 8:45AM BY STEFFANY ALLRED MA, FRANSISCAATI ON/LUCRETIA Apodaca MD [address] [facility] [address], [place], [address] , [facility] 6 07:25:24 Administ ration of diphther ia and tetanus vaccine Completed 201212/14/2013 RECORDED 07/09/19 13 8:45AM BY STEFFANY ALLRED MA, SPEEDY ON/LUCRETIA Apodaca MD [address] [facility] [address], [place], [address] , [facility] 6 07:25:24 Conjunct ivitis 8448874 Completed 201211/17/2013 RECORDED 07/11/19 13 2:41PM BY CK TRIPATHI MA, SPEEDY ON/LUCRETIA Apodaca MD [address] [facility] [address], [place], [address] , [facility] 6 07:25:24 Conjunct ivitis 3417190 Completed 201212/14/2013 RECORDED 07/11/19 13 2:41PM BY CK TRIPATHI MA, ANNOTATI ON/LUCRETIA Apodaca MD [address] [facility] [address], [place], [address] , [facility] 6 07:25:24 Shoulder joint pain 100031610 Completed 201211/17/2013 IMPRESSI ON: WOULD NOT RECCOMEN D X-RAY. PT ORDER. F/U IF NOT IMPROVIN G; RECORDED 10/03/19 13 11:35AM BY STEFFANY ALLRED MA, SPEEDY ON/LUCRETIA Apodaca MD [address] [facility] [address], [place], [address] , [facility] 6 07:25:24 Acute sinusiti s 82874645 Completed 201211/17/2013 RECORDED 10/03/19 13 11:35AM BY STEFFANY ALLRED MA, SPEEDY ON/JACKELIN Jimenez, [facility] 5 09:52:00 Screenin g for malignan t neoplasm of breast Completed 201211/17/2013 RECORDED 10/03/19 13 11:35AM BY STEFFANY ALLRED MA, SPEEDY ON/ADDEN JEET Apodaca MD [address], [place], [address] , [facility] 6 07:25:24 Cough 19482147 Completed 201211/17/2013 IMPRESSI ON: SHE IS CONCERNE D THAT HAS PNEUMONI A AND WOULD LIKE CXR OR ANTIBIOT ICS; RECORDED 10/03/19 13 11:35AM BY STEFFANY ALLRED MA, SPEEDY ON/LUCRETIA Apodaca MD [address], [place], [address] , [facility] 6 07:25:24 Shoulder joint pain 123350359 Completed 201212/14/2013 IMPRESSI ON: WOULD NOT RECCOMEN D X-RAY. PT ORDER. F/U IF NOT IMPROVIN G; RECORDED 10/03/19 13 11:35AM BY STEFFANY ALLRED MA, SPEEDY ON/LUCRETIA Apodaca MD [address], [place], [address] , [facility] 6 07:25:24 Acute sinusiti s 10372424 Completed 201212/14/2013 RECORDED 10/03/19 13 11:35AM BY STEFFANY ALLRED MA, SPEEDY ON/ADDEN DUM JACKELIN Terry, [facility] 5 09:52:00 Screenin g for malignan t neoplasm of breast Completed 201212/14/2013 RECORDED 10/03/19 13 11:35AM BY STEFFANY ALLRED MA, SPEEDY NORRIS/LUCRETIA Apodaca MD [address] [address], [place], [address] , [facility] 6 07:25:24 Cough 51628839 Completed 201212/14/2013 IMPRESSI ON: SHE IS CONCERNVinicius Charles THAT HAS PNEUMONI A AND WOULD LIKE CXR OR ANTIBIOT ICS; RECORDED 10/03/19 13 11:35AM BY STEFFANY ALLRED MA, SPEEDY ON/LUCRETIA Apodaca MD [address] [address], [place], [address] , [facility] 6 07:25:24 Acute upper respirat ory infectio n 64356742 Completed 201211/17/2013 IMPRESSI ON: COMPLETE D ZPACK 4 DAYS AGO, NO ADDITION AL ABX NECESSAR Y; RECORDED 10/23/19 13 3:36PM BY SPEEDY RODRIGUEZ ON/LUCRETIA Apodaca MD [address] [address], [place], [address] , [facility] 6 07:25:24 Acute upper respirat ory infectio n 00135251 Completed 201212/14/2013 IMPRESSI ON: COMPLETE D ZPACK 4 DAYS AGO, NO ADDITION AL ABX NECESSAR Y; RECORDED 10/23/19 13 3:36PM BY SPEEDY RODRIGUEZ/LUCRETIA Apodaca MD [address] [address], [place], [address] , [facility] 6 07:25:24 Hyperlip idemia 21690529 Active 2016 Not Available [facility] 1 11:13:07 Acute urticari a 332834733 Completed 201604/24/2017 Leonora Olmos MA null, [facility] 7 15:14:04 Abscess of chest wall 90466727 Active 2016 I&Ded by Dr Huerta. Not Available [facility] 1 11:13:07 Elevated blood-pr essure reading without diagnosi s of hyperten seferino 074210328 Completed 201601/21/2019 Allison Apodaca MD [address], [place], [address] , [facility] 9 10:23:23 Moderate persiste nt asthma 162734255 Active 2016 Not Available [facility] 1 11:13:07 Cholecys titis 59651171 Active 2017 secondar y to stones; admitted to [facility] 10/07- Not Available [facility] 1 11:13:07 Arthriti s of right hip 52648657291 99708 Active [address] [facility]; scheduli ng surgery Allison Apodaca MD [address], [place], [address] , [facility] 3 08:53:32 Gastroes ophageal reflux disease 995616032 Active 2018 Not Available [facility] 1 11:13:07 Hyperten sive renal disease 33215851 Active 2020 Not Available [facility] 1 11:13:07 History of SARS-CoV -2 39231521552 1085793 Active 2021 Allison Apodaca MD [address], [place], [address] , [facility] 2 12:57:05 Plantar fasciiti s of left foot 24112110191 969668 Active [address] [facility] Allison Apodaca MD [address], [place], [address] , [facility] 2 18:35:40 Closed fracture of phalanx of foot 91237896 Active 2022 Small toe after trauma. Seen by ortho. Healing well. Allison Apodaca MD [address] [address], [place], [address] , [facility] 3 11:54:04 Chronic kidney disease stage 1 950850767 Active 2022 Nikki fermin, [facility] 3 10:22:01 Intermit tent asthma 592885236 Active 2023 Allison Apodaca MD [address] [address], [place], [address] , [facility] 4 07:58:32 Acute bronchit is 20983217 Active 2023 CANDICE Salas [address] [address], [place], [address] , [facility] 4 10:49:28 Exacerba tion of moderate persiste nt asthma 163469561 Active 2023 CANDICE Salas [address] [address], [place], [address] , [facility] 4 10:49:34 Acute sinusiti s 66080881 Completed 202301/16/2025 JACKELIN Terry, [facility] 5 09:52:00 Pain of left shoulder joint 59633950490 273169 Active 2023 Jamin Gong PA-C [address] [address], [place], [address] , [facility] 4 12:23:42 Constipa tion 13922475 Active 2023 Jamin Gong PA-C [address] [address], [place], [address] , [facility] 4 12:25:47 Skin lesion 70499920 Active 2023 Ceci fermin, [facility] 4 16:25:29 Microsco pic hematuri a 886325136 Active 2024 Benign; seen by urology, Dr Schrader . Allison Apodaca MD [address], [place], [address] , [facility] 5 16:27:32 Overacti ve urinary bladder 427539997 Active 2024 On meds and followed bu urology. Allison Apodaca MD [address], [place], [address] , [facility] 5 16:28:20 Problem Notes None recorded. Procedures Surgical History Date Name Laterality Status Provider Name and Address Organization Details Recorded Time 01/17 Most Recent Mammogram completed Shala Nuno [facility] 4 14:14:20 01/17 Mammogram screening completed Shala Nuno [facility] 4 14:14:14 06/14 Date of Last Pap Smear completed Gabriela Mcdonald [facility] 3 13:56:18 01/31 Date of Last Colonoscopy completed Shara Morrow [facility] 1 09:45:40 01/31 colonoscopy completed Iwonavandana Mayo [facility] 1 09:45:35 01/31 esophagogastroduodenoscopy completed Meghasc vandana Mayo [facility] 1 12:05:14 10/07 Cholecystectomy completed Allison Apodaca MD [address], [place], [address] , [facility] 8 16:59:05 05/06 Appendectomy completed Jil Manriquez MA [facility] 2 09:33:11 Laparotomy completed Yun Melgar [facility] 9 09:27:24 Cologuard completed Antonia Varela MA [facility] 1 15:12:25 Imaging Results None recorded. Procedure Notes None recorded. Medical Equipment None Reported. Allergies Allergen ID Allergen Name Allergen Category Reaction Reaction Severity Criticality Documentation Date Start Date Code Code System Note Provider Name and Address Organization Details Recorded Time Non-stero idal anti-infl ammatory agent (substanc e) medicatio n hives severe Not available 07/06/2014 68930 5008 SNOMED Breat randall diffi culty also Yun Melgar [facility] 5 09:40:53 82458 Substance with sulfonami de structure and antibacte rial mechanism of action (substanc e) medicatio n hives Not available Not available 01/30/2017 75035 8003 SNOMED Allison martinez MD [address], [facility] JACKELIN larkin, [address] [place] [address] 7 18:52:09 17007 acetamino phen / hydrocodo ne medicatio n hives Not available Not available 10/10/2017 07901 2 RxNorm JACKELIN Swanson [facility] 2 11:35:22 60817 Dilaudid medicatio n rash moderate Not available 10/24/20172017 36247 3 RxNorm CATE Simental, [facility] 8 10:44:22 17407 tetracycl ine medicatio n Not available Not available Not available 09/16/2019 02777 RxNorm JACKELIN Diaz [facility] 3 15:55:59 13874 polymyxin B medicatio n Not available Not available Not available 09/16/2019 8536 RxNorm Vicki Money null, [facility] 0 13:35:12 19357 erythromy harry medicatio n Not available Not available Not available 09/16/2019 4053 RxNorm Vicki Deandre zander, [facility] 0 13:35:12 73769 ibuprofen medicatio n hives Not available Not available 09/16/2019 5640 RxNorm JACKELIN Swanson, [facility] 2 11:35:18 66854 aspirin medicatio n hives Not available Not available 09/16/2019 1191 RxNorm JACKELIN Swanson, [facility] 2 11:35:17 00915 naproxen medicatio n Not available Not available Not available 09/16/2019 7258 RxNorm JACKELIN Swanson, [facility] 2 11:35:20 01736 lidocaine medicatio n palpitati ons Not available Not available 07/24/2022 6387 RxNorm Ck Lizbeth-JACKELIN Campa, [facility] 3 15:55:53 4149 tetracycl ine hydrochlo ride medicatio n Not available Not available Not available 11/17/2013 01423 6 RxNorm JACKELIN Shook, [facility] 2 13:13:09 4150 Tylox medicatio n Not available Not available Not available 11/17/2013 35700 5 RxNorm CANDICE Salas [address] [facility] [address], [place], [address] , [facility] 4 16:48:26 58062 Augmentin medicatio n diarrhea severe Not available 02/18/2023 56688 2 RxNorm ANGELA Alarcon, [facility] 4 08:59:38 Medications Name Sig Start Date Stop Date Status Note LastModified by Organization Details LastModified Time cyclobenz aprine 10 mg tablet Take 1 tablet 3 times a day by oral route as directed for 7 days. 11/23 completed Not Available Not Available Not Available amoxicill in 500 mg capsule TAKE 4 CAPSULES BY MOUTH ONE HOUR PRIOR TO DENTAL APPOINTM ENT active Not Available Not Available No t Available fluconazo le 100 mg tablet TAKE 1 TABLET BY MOUTH EVERY DAY 02/16 completed Not Available Not Available Not Available atorvasta tin 40 mg tablet Take 1 tablet every day by oral route at bedtime. 12/10 completed Not Available Not Available Not Available clotrimaz ole 10 mg kameron TAKE 1 TABLET 5 TIMES A DAY BY ORAL ROUTE FOR 14 DAYS. 01/21 completed Not Available Not Available Not Available [...] DAYS FOR HYPERLIP IDEMIA STOP SIMVASTA TIN active Not Available Not Available No t Available albuterol sulfate 2.5 mg/3 mL (0.083 %) solution for nebulizat ion INHALE 1 VIAL VIA NEBULIZE R EVERY 4 TO 6 HOURS NEEDED FOR COUGH/WH EEZE active Not Available Not Available No t Available cefpodoxi me 200 mg tablet TAKE 1 TABLET BY MOUTH TWICE A DAY (WITH FOOD) 01/21 completed Not Available Not Available Not Available [...] active RECORDED 02/26/20 12 3:26PM BY ELSA VELIZ, PAZainC, OFFICE VISIT; Not Available Not Available [...] THREE TIMES A DAY FOR 3 DAYS 01/21 completed Not Available Not Available Not Available [...] Available Not Available Nasonex 50 mcg/actua tion [place] EACH NOSTRIL ONCE DAILY 02/25 completed RECORDED [...] 1 GRAM PER VAGINA 3X PER WEEK 01/01 completed Not Available Not Available Not Available levofloxa harry 750 mg tablet DAILY 03/07 completed RECORDED 03/14/20 12 4:23PM BY ELSA VELIZ, PAZainC, MEDICATI ON AUTO-KIMMIE CTIVATIO N; Not Available Not Available Not Available methylpre dnisolone 4 mg tablets in a dose pack TAKE 6 TABLETS ON DAY 1 DIRECTED ON PACKAGE AND DECREASE BY 1 TAB EACH DAY FOR A TOTAL OF 6 DAYS 06/23 completed Not Available Not Available Not Available albuterol sulfate HFA 90 mcg/actua tion aerosol inhaler INHALE 2 PUFFS EVERY 4 HOURS NEEDED. 2024 active Not Available Not Available Not Avai lable Percocet 5 mg-325 mg tablet Take 1 [...] A DAY ADMINIST ER INTO EACH NOSTRIL 02/16 completed Not Available Not Available Not Available [...] e 10 mg-benaze pril 40 mg capsule Take 1 tablet by mouth at bedtime for 90 days for Hyperlip idemia 2024 active Not Available Not Available Not [...] Not Available Not Available OptiChamb er Queta [facility] spacer USE DIRECTED WITH INHALERS active Not Available Not Available No t Available mirabegro n ER 25 mg tablet,ex tended release 24 hr TAKE 1 TABLET BY MOUTH EVERY DAY 01/01 completed Not Available Not Available Not Available EpiPen 2-Jesu 0.3 mg/0.3 mL injection [...] completed Not Available Not Available Not Available Flonase Allergy Relief active Not Available Not Available Not Available Afluria 7167-8015 (PF) 45 mcg (15 mcg x 3)/0.5 mL IM syringe active Not Available Not Available Not Available Fluarix Quad 9323-3242 (PF) 60 mcg (15 mcg x 4)/0.5 mL IM syringe 06/19 completed Not Available Not Available Not Available Fluarix Quad 4754-8240 (PF) 60 mcg (15 mcg x 4)/0.5 [...] Available Not Available Not Available Flucelvax Quad 2977-4195 (PF) 60 mcg (15 mcg x 4)/0.5 mL IM syringe 09/15 completed Not Available Not Available Not Available Afluria Qd 2019- (36 mos up)(PF)60 mcg (15 mcg x4)/0.5 mL IM syringe PHARMACY ADMINIST ERED 03/04 completed Not Available Not Available Not Available Trelegy Ellipta 200 mcg-62.5 mcg-25 mcg powder for inhalatio n USE 1 INHALATI ON ORALLY DAILY active Not Available Not Available No t Available Paxlovid 300 mg (150 mg x 2)-100 mg tablets in a dose pack TAKE 3 TABLETS BY MOUTH TWICE A DAY DIRECTED FOR 5 DAYS 01/21 completed Not Available Not Available Not Available Breyna 160 mcg-4.5 mcg/actua tion HFA aerosol inhaler USE 2 INHALATI ONS ORALLY TWICE DAILY 01/01 completed Not Available Not Available Not Available Zepbound 2.5 mg/0.5 mL subcutane ous pen injector INJECT 2.5 MG SUBCUTAN EOUSLY WEEKLY FOR 28 DAYS active Not Available Not Available No t Available Vitals Date Recorded Body height Body mass index (BMI) Body weight Heart rate Oxygen saturation Oxygen saturation in Arterial blood by Pulse oximetry Body temperature Systolic And Diastolic Provider Name and Address Organization Details Last Updated DateTime 5 158.75 cm 35.8 kg/m2 78618.8 8 g 85 /min 97 % 97 % 97.9 [degF] 126/81 mm[Hg] Dariela Rios [facility] 5 14:19:04 Date Recorded Body height Body mass index (BMI) Body weight Heart rate Oxygen saturation Oxygen saturation in Arterial blood by Pulse oximetry Body temperature Systolic And Diastolic Provider Name and Address Organization Details Last Updated DateTime 5 158.75 cm 36.4 kg/m2 92154.6 6 g 87 /min 98 % 98 % 97.4 [degF] 139/81 mm[Hg] [facility] 5 13:19:48 Date Recorded Body height Body mass index (BMI) Body weight Heart rate Oxygen saturation Oxygen saturation in Arterial blood by Pulse oximetry Body temperature Systolic And Diastolic Provider Name and Address Organization Details Last Updated DateTime 5 158.75 cm 35.5 kg/m2 69173.7 g 95 /min 96 % 96 % 98.3 [degF] 127/78 mm[Hg] Ck friedman [facility] 5 09:50:33 Date Recorded Body height Body mass index (BMI) Body weight Heart rate Oxygen saturation Oxygen saturation in Arterial blood by Pulse oximetry Body temperature Systolic And Diastolic Provider Name and Address Organization Details Last Updated DateTime 5 158.75 cm 34 kg/m2 86442.9 6 g 77 /min 95 % 95 % 97.9 [degF] 114/69 mm[Hg] [facility] 5 15:37:42 Date Recorded Systolic And Diastolic Provider Name and Address Organization Details Last Updated DateTime 02/16/2025 118/72 mm[Hg] Allison Apodaca MD [address], [address], [facility] 02/16/2025 17:34:16 Date Recorded Body height Body mass index (BMI) Body weight Heart rate Oxygen saturation Oxygen saturation in Arterial blood by Pulse oximetry Body temperature Systolic And Diastolic Provider Name and Address Organization Details Last Updated DateTime 158.75 cm 35.3 kg/m2 32910.1 g 78 /min 99 % 99 % 98 [degF] 143/80 mm[Hg] Dariela Rios MA [facility] 15:46:20 Social History Question Answer Notes LastModified by Organizat ion Details LastModified Time Tobacco Smoking Status Former Smoker quit in 2009 Not Available [employer] 03/08/2020 03:36:34 Do You Have An Advance Directive? Yes [email or web address] Information not available 02/05/2022 Is Blood Transfusion Acceptable In An Emergency? Yes [id number] Information not available 03/08/2020 What Is Your Level Of Caffeine Consumption? None Information not available 01/24/2022 How Much Tobacco Do You Chew? None [id number] Information not available 03/08/2020 What Type Of Diet Are You Following? REGULAR [id number] Information not available 03/08/2020 Which Illicit Or Recreational Drugs Have You Used? None [id number] Information not available 03/08/2020 When Did You Quit Smoking? 11-15years [email or web address] igarette Information not available 11/23/2020 Live Alone Or With Others? With Others Boyfriend [email or web address] Information not available 02/05/2022 Do You Take Precautions To Prevent Distracted Driving? Yes Information not available 07/27/2015 How Often Do You Need To Have Someone Help You When You Read Instructions, Pamphlets, Or Other Written Material From Your Doctor Or Pharmacy? Never Information not available 07/27/2015 Have You Served In The ? No hector Information not available 07/31/2016 Have You Or [...] Date Of Your Most Recent Tobacco Screening? 02/16/2025 [email or web address] Information not available 02/16/2025 How Many Children Do You Have? 4 2 Sons And 2 Daughters 1 Daughter In [place] 1 Son In [place] 2 Grandchildren (1 Girl And 1 Boy) [email or web address] Information not available 01/24/2022 What Is Your Current Pack Years? 30ormorepa ckyears [email or web address] Information not available 02/05/2022 Do You Use Protection During Sex? No [id number] Information not available 03/08/2020 Do You Use Your Seat Belt Or Car Seat Routinely? Yes Information not available 01/24/2022 Seat Belts Used Routinely Yes [email or web address] Information not available 02/05/2022 Are You Sexually Active? Yes [id number] Information not available 03/08/2020 Smoke Alarm In Home Yes [email or web address] Information not available 02/05/2022 Do You Have Smoke And Carbon Monoxide Detectors In Your Home? Yes Information not available 01/24/2022 At What Age Did You Start Smoking Tobacco? 15 In 1975 [id number] Information not available 03/08/2020 Are You Passively Exposed To Smoke? No [email or web address] Information not available 07/31/2016 How Much Tobacco Do You Smoke? 1 PPD [id number] Information not available 03/08/2020 Do You Use Sunscreen Routinely? Yes [id number] Information not available 03/08/2020 How Many Years Have You Smoked Tobacco? 34 Information not available 11/23/2020 Sex: Unknown Functional Status Question Answer Note LastModified by Organizat ion Details LastModified Time Do you use any illicit or recreational drugs? No [email or web address] Information not available 02/05/2022 Do you or have you ever used any other forms of tobacco or nicotine? No [email or web address] Information not available 02/05/2022 What is your level of alcohol consumption? Occasional wine [id number] Information not available 03/08/2020 Do you or have you ever used smokeless tobacco? Never used smokeless tobacco [id number] Information not available 03/08/2020 Are you currently employed? Yes [id number] Information not available 03/08/2020 Are you able to walk independently without assistance or assistive devices? YESWOREST [email or web address] Information not available 02/05/2022 Are you able to care for yourself independently? Yes [id number] Information not available 03/08/2020 What is your occupation? [employer]. Information not available 01/24/2022 Do you or have you ever used e-cigarettes or vape? Never used electronic cigarettes [email or web address] Information not available 02/05/2022 What is your exercise level? None due to hip pain [email or web address] Information not available 07/24/2022 Mental Status None recorded. Family History Relationship Description Onset Age of this Age Resolved Age Notes LastModified by Organization Details LastModified Time Mother Malignant neoplasm of breast 78 metast atic [email or web address] Not available 07/27/2015 15:22:20 Brother Crohn's disease 46 [email or web address] Not available 02/05 09:18:09 Father Alzheimer's disease 80 [email or web address] Not available 07/26 15:22:20 Sister Irritable bowel syndrome [email or web address] Not available 02/05 09:18:09 Sister Crohn's disease [email or web address] Not available 02/05 09:18:09 Sister Asthma [email or web address] Not availabl e 02/04/2024 16:13:51 Son Crohn's disease [email or web address] Not available 02/05 09:18:09 Unspecified Relation Crohn's disease [email or web address] Not available 02/05 09:18:09 Notes:2 sisters and 1 brothe r (brother ; she's in the middle). Medical History Condition Response Other N Gout N Kidney Stones N Blood Diseases N Hyperthyroidism N Breast Cancer N Depression N COPD N Lung Disease N Hypothyroidism N Defects [...] Eczema Y Diverticulitis N Abuse/Domestic Violence N Asthma Y Allergies Y Reflux/GERD N [...] and Address Organization Details Recorded Time Influenza, high-dose, trivalent, PF 5 completed JACKELIN Mccrary [facility] 02/16/2025 15:48:05 Influenza, split virus, trivalent, PF 5 completed Iwona fermin [facility] 03/10/2021 14:23:35 Influenza, split virus, quadrivalent, preservative 6 completed Not Available [facility] 04/04/2023 08:38:45 Influenza, split virus, quadrivalent, PF 6 completed JACKELIN Swanson [facility] 02/05/2022 11:35:05 Influenza, split virus, quadrivalent, PF 7 completed JACKELIN Swanson [facility] 02/05/2022 11:35:05 Influenza, MDCK, quadrivalent, PF 9 completed JACKELIN Lundy [facility] 04/10/2021 09:32:02 Influenza, split virus, quadrivalent, preservative 0 completed Not Available [facility] 04/04/2023 08:38:45 COVID-19, mRNA, LNP-S, PF, 30 mcg/0.3 mL dose 1 completed JACKELIN Lundy [facility] 04/10/2021 09:32:02 COVID-19, mRNA, LNP-S, PF, 30 mcg/0.3 mL dose 1 completed JACKELIN Lundy [facility] 04/10/2021 09:32:02 COVID-19, mRNA, LNP-S, PF, 100 mcg/0.5mL dose or 50 mcg/0.25mL dose 1 completed JACKELIN Swanson [facility] 02/05/2022 11:35:05 Influenza, split virus, quadrivalent, PF 1 completed JACKELIN Lundy [facility] 04/10/2021 09:32:02 Influenza, split virus, quadrivalent, PF 0 completed JACKELIN Lundy [facility] 04/10/2021 09:32:02 Novel [id number], preservative-free 9 completed JACKELIN Lundy [facility] 04/10/2021 09:32:02 Influenza, split virus, trivalent, preservative 5 completed JACKELIN Lundy [facility] 04/10/2021 09:32:02 pneumococcal polysaccharide PPV23 7 completed JACKELIN Lundy [facility] 04/10/2021 09:32:02 Influenza, split virus, trivalent, preservative 1 completed JACKELIN Lundy, [facility] 04/10/2021 09:32:02 Influenza, split virus, trivalent, preservative 0 completed JACKELIN Lundy, [facility] 04/10/2021 09:32:02 Influenza, split virus, trivalent, preservative 9 completed JACKELIN Lundy, [facility] 04/10/2021 09:32:02 Td (adult), 2 Lf tetanus toxoid, preservative free, adsorbed 4 completed JACKELIN Lundy [facility] 04/10/2021 09:32:02 Influenza, split virus, trivalent, preservative 6 completed JACKELIN Lundy [facility] 04/10/2021 09:32:02 pneumococcal polysaccharide PPV23 8 [facility] 11:35:05 Influenza, split virus, quadrivalent, PF 8 completed JACKELIN Swanson, [facility] 02/05/2022 11:35:05 Influenza, split virus, trivalent, PF 4 completed JACKELIN Swanson [facility] 02/05/2022 11:35:05 Influenza, split virus, quadrivalent, PF 2 completed JACKELIN Swanson [facility] 02/05/2022 11:35:05 influenza, seasonal, intradermal, preservative free 2 completed Iwona fermin [facility] 03/10/2021 14:23:35 Tdap 3 completed JACKELIN Lundy [facility] 04/10/2021 09:32:02 pneumococcal polysaccharide PPV23 3 completed Iwona Mayo null, [facility] 03/10/2021 14:23:35 Influenza, split virus, quadrivalent, PF 3 completed Allison Apodaca MD [address] [address], [place], [address], [facility] 01/30/2023 12:43:57 Td (adult), 2 Lf tetanus toxoid, preservative free, adsorbed 3 completed Allison Apodaca MD [address] [address], [place], [address], [facility] 01/30/2023 12:43:57 Influenza, split virus, trivalent, PF 4 completed Jamin Gong PA-C [address] [address], [place], [address], [facility] 01/13/2024 19:55:47 Past Encounters Encounter ID Performer Location Encounter Start Date Encounter Closed Date Diagnosis/Indication Diagnosis SNOMED-CT Code Diagnosis ICD10 Code Diagnosis IMO Codes Diagnosis Note [id number] autoEComm erce [address] [facility] [place] [place] [address] 11/06/2011 00:00:00 [id number] autoEComm erce [address] [facility] [place] [place] [address] 02/05/2012 00:00:00 [id number] autoEComm erce [address] [facility] [place] [place] [address] 02/26/2012 00:00:00 [id number] autoEComm erce [address] [facility] [place] [place] [address] 03/14/2012 00:00:00 [id number] autoEComm erce [address] [facility] [place] [place] [address] 05/08/2012 00:00:00 [id number] autoEComm erce [address] [facility] [place] [place] [address] 07/08/2012 00:00:00 [id number] autoEComm erce [address] [facility] [place] [place], [place] [address] 09/10/2012 00:00:00 [id number] autoEComm erce [address] [facility] [place] [place], [place] [address] 10/02/2012 00:00:00 [id number] autoEComm erce [address] [facility] [place] [place], [place] [address] 10/22/2012 00:00:00 [id number] CANDICE Ordonez Main Office [address] [facility] [address] [place] [address] 02/08/2014 08:11:50 02/08/2014 09:37:08 Postmenopausal bleeding [id number] We will schedule ANALYTICS ASSOCIATE appt for pt for further eval. Needs infl uenza immunization [id number] Ruma barnett MD Main Office [address] [address] [place] [address] 03/27/2014 09:41:05 03/27/2014 10:39:57 Low back pain 085452864 5 days of pain without obvious cause, hx of disc herniation 2001 with steroid injections . pt to take meds belwo and see [facility], needs PT, strengthen ing in core adn exercise, if all else fails discussed breast reduction as possible helping [id number] Allison Apodaca MD Main Office [address] [address] [place] [address] 04/26/2014 16:06:58 04/26/2014 16:45:46 Sciatica 07863271 this was probably brought on by being in the lithotomy position during an extended period during her ANALYTICS ASSOCIATE procedure. She has improved. No further w/u needed and she [facility] need [facility] [id number] Allison Apodaca MD Main Office [address] [facility] [address] [place] [address] 07/06/2014 09:25:20 07/06/2014 10:32:19 Adult health examination 678316007 Tinea pedis 6690072 she thought this was eczema and she used a steroid cream on the area w/o much help. She will try OTC clotrimazo le for fungal rash and will call here or make a derm appointmen t if it persists. [id number] Allison Apodaca MD Main Office [address] [facility] [address] [place] [address] 07/27/2015 15:03:35 07/27/2015 16:03:20 Pure hypercholesterolemia 048811767 E78.0 Adult heal th examination 251940300 Z00.00 Obstructiv e sleep apnea syndrome 92272433 G47.33 [id number] Jamin Gong PA-C Main Office [address] [address] [place] [address] 06/19/2016 11:29:04 06/19/2016 12:44:51 Pneumonia 537967451 J18.9 finish abx as directed. pt requests oow note for the rest of the week. will attempt to get formal cxr report Sinusitis 12193698 J32.9 see below - can add on 3 add'l days of rx if warranted Asthma 821095935 J45.31 see below 25 minute office visit with greater than 50% of the visit face-to-fa ce with the patient and/or family providing counseling and/or coordinati on of care. [id number] Allison Apodaca MD Main Office [address] [address] [place] [address] 07/31/2016 09:50:51 07/31/2016 11:06:46 Adult health examination 959529269 Z00.00 She is UTD with immunizati ons, colonoscop y and ANALYTICS ASSOCIATE care Hyperlipidemia 02399970 E78.5 Wants to try a different med at a lower dose. Will change from simvastati n to atorvastat in Pain of ri ght hip joint 5120000762 56363 M25.551 Community acquired pneumonia 610982688 J18.9 This may not have been pneumonia given her lack of fever and equivocal xray findings. Will check for resolution . She however states that she has had multiple episodes of CAP in the past. Skin lesion 77335098 L98 .9 [id number] Victor M martinez MD Main Office [address] [address] [place] [address] 10/09/2016 15:09:15 10/09/2016 15:48:49 Dysuria 86214502 R30.0 [id number] Allison Apodaca MD Main Office [address] [address] [place] [address] 01/30/2017 12:39:12 01/30/2017 13:23:46 Abscess 224125979 L02.91 [id number] Jamin Gong PA-C Main Office [address] [address] [place] [address] 03/06/2017 08:43:22 03/06/2017 10:01:01 Dysuria 26172748 R30.0 will check c+s -- ? sxs complicate d by underlying constipati on Acute low back pain 2788 29701 M54.5 ? upper lumbar herniated disc radiating to R flank, but see below pt requests oow note - worried about going to wedding this w/e too Right flank pain 2040742 09 R10.9 no h/o kidney stones and no cvat - suspicious for radiculopa thy and / or constipati on Lumbosacra l radiculitis 95807452 M54.17 Constipation 65293111 K5 9.00 [id number] Jamin Gong PA-C Main Office [address] [address] [place] [address] 03/11/2017 08:39:16 03/11/2017 09:38:56 Low back pain 739277213 M54.5 better, cont hep and prn m. 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 Continue ProAir HFA 90 mcg inhaler as needed Upper resp iratory infection 01094237 J06.9 Continue tylenol cold and congestion as neededReco mmend saline nasal washesFoll ow up in 2 weeks, consider ABX if no improvemen t of symptoms or worsening of symptoms Elevated blood-pressure reading without diagnosis of hypertension 641534202 R03.0 Possibly due to OTC meds. Recommende d to test BP at home after URI resolved. [id number] Anisha Gong PA-C Main Office [address] [facility] [address] [place] [address] 04/24/2017 15:09:28 04/24/2017 16:45:27 Moderate persistent asthma 703400857 J45.40 IMproved now with Symbicort. Advised to continue medication and use rescue PRN> Elevated blood-pressure reading without diagnosis of hypertension 376346819 R03.0 Avoid OTC meds /stimulant s. Check BP weekly. Reports if over 140/90. DEcrease sodium aaaadn caffeine. [id number] Allison Apodaca MD Main Office [address] [place] [address] 08/01/2017 09:31:25 08/01/2017 10:36:18 Adult health examination 585395776 Z00.00 She is UTD with immunizati ons, colonoscop y and ANALYTICS ASSOCIATE care Hyperlipidemia 51251491 E78.5 Tolerating the simvastati n. Will check fasting lipid level Asthma 289993438 J45.90 9 Good control with current mgmt. Rarely uses her rescue inhaler Impacted c erumen of bilateral ears 3193556696 543490 H61.23 Administra tion of pneumococcal vaccine 71335864 Z23 [id number] Anisha Gong PA-C Main Office [address] [facility] [address] [place] [address] 09/16/2017 13:41:07 09/16/2017 15:09:51 Rib pain 732983130 R07.81 Take Tylenol ES 500 mg every 4 hours as needed for pain. Rest and avoid lefting heavy objects. Follow up if no improvemen t in symptoms or symptoms get worse. Dyspnea 571148846 R06.00 might be related to rib pain. [id number] Allison Apodaca MD Main Office [address] [place] [place] [address] 10/24/2017 14:18:27 10/24/2017 15:39:35 Essential hypertension 67050837 I10 She is not on meds but her BP has been high the last couple of visits. She will work on lifestyle changes and return in 1 month. Panic attack 764058286 F 41.0 Her lightheade dness may be related to BP vs panic attacks. Lightheadedness 17509899 8 R42 Screening for malignant neoplasm of colon 181368634 Z12.11 Mesenteric lymphadenopathy 165974600 I88.0 Described as nonspecifi c. Will refer for a colonoscop y and will repeat the CT scan in late December or January. [id number] Allison Apodaca MD Main Office [address] [place] [address] 11/28/2017 08:51:37 11/28/2017 09:32:11 Essential hypertension 05735817 I10 BP continues to run high so will start a med and she will continue with lifestyle changes. Asthma 017475154 J45.90 9 Good control with current mgmt. Rarely uses her rescue inhaler Cough 35390579 R05 She will continue with her asthma treatment and no specific treatment is needed for her cough. [id number] Ruma barnett MD Main Office [address] [place] [address] 12/06/2017 14:53:08 12/06/2017 15:37:21 Cough 94390731 R05 see below, will tx with levaquin and inhalers Moderate asthma 09172967 9 J45.901 asthma flare due to infectious component, will hold off on prednisone due to levaquin and risk of achilles tendonitis , return if not improving Acute sinusitis 84807432 J01.90 tx as below [id number] Allison Apodaca MD Main Office [address] [place] [address] 01/07/2018 09:56:58 01/07/2018 10:37:22 Asthma 336436673 J45.909 Good control with current mgmt. Rarely uses her rescue inhaler Needs infl uenza immunization 762713047 Z23 Essential hypertension 44592281 I10 BP under good control; continue current mgmt. CT of abdo men abnormal 7422277182 7072181 R93.5 [id number] Jamin Gong PA-C Main Office [address] [place] [address] 02/17/2018 13:42:56 02/17/2018 14:42:00 Cough 51748277 R05 check cxr to r/o pna - will rx c abx if + Asthma 651588728 J45.40 see below 25 minute office visit with greater than 50% of the visit face-to-fa ce with the patient and/or family providing counseling and/or coordinati on of care. Essential hypertension 87836420 I10 stable, cont med as dir Viral uppe r respiratory tract infection 266244151 J06.9 [id number] Woo Houston MD Main Office [address] [place] [address] 06/18/2018 13:55:05 06/18/2018 14:50:03 Acute pharyngitis 720217109 J02.9 Sinusitis 78195318 J32.9 see below - can add on 3 add'l days of rx if warranted rec probiotic while on abx - then continue as has had some problems c belching Asthma 949122129 J45.40 lungs clear today so doubt pna 25 minute office visit with greater than 50% of the visit face-to-fa ce with the patient and/or family providing counseling and/or coordinati on of care. Essential hypertension 96704222 I10 asymptomat ic - but trending low - advised pt to simply cut 5mg norvasc in 1/2 to 2.5mg qd - cont to monitor at home - if gets > 140 then resume full 5mg tab - next f/u c pcp already scheduled for 4.1.19 Abdominal bloating 01653 9008 R14.0 rec change prn tums to prn tums anti-gas [id number] Allison Apodaca MD Main Office [address] [address] [place] [address] 09/18/2018 12:43:03 09/18/2018 13:37:24 Pain of right hip joint 1208981007 58548 M25.551 Possible groin pull vs inguinal hernia. [id number] Allison Apodaca MD Main Office [address] [facility] [address] [place] [address] 01/21/2019 09:17:48 01/21/2019 10:33:25 Adult health examination 055448021 Z00.00 She is UTD with immunizati ons and [employer] care. Colonoscop y is due next year. Screening for malignant neoplasm of colon 498288130 Z12.11 Moderate p ersistent asthma 843773747 J45.40 Will stop symbicort at her request since she feels that it is not helping. Essential hypertension 33288894 I10 BP under good control; continue current mgmt. Arthritis of right hip 8525219757 428378 M13.851 She is considerin g an injection and will call [facility] to schedule an appointmen t. [id number] Allison Apodaca MD [facility] 36[address] [facility] [address] [place] [address] 09/16/2019 08:09:32 09/16/2019 09:58:29 Essential hypertension 52982236 I10 BP running high. She will increase her amlodipine from 2.5 to 5 mg. Asthma 315162832 J45.90 9 Good control with current mgmt. Rarely uses her rescue inhaler. She will stop her symbicort when allergy season as passed. Hyperlipidemia 60743913 E78.5 Tolerating the simvastati n. Will check fasting lipid level at Gastroesop hageal reflux disease 751106385 K21.0 This has improved since changing her diet and currently no taking any meds. Cough 43898182 R05 She will continue with her asthma treatment. We will also check her for COVID since this cough is different from her usual cough. Also with MEJIA. Exposure t o viral disease 2322073124 76265 Z03.818 Dry cough and MEJIA. [id number] Ruma barnett MD [facility] [address] [facility] [address] [place] [address] 03/04/2020 06:16:17 03/04/2020 13:49:53 Muscle pain 87235111 M79.10 Has new muscle pain in her legs, will do some labs to see if related to statin. If negative, pt needs to come in to the office to have legs evaluated Essential hypertension 77934700 I10 BP running ok on current med, if leg pain persists to be seen in office, told CCB can cause some peripheral edema. Hyperlipidemia 66323562 E78.5 labs to assess statin dose Moderate p ersistent asthma 785007389 J45.40 continue with baseline inhalers, call if any worsening sx. Counseling 143492058 Z71 .9 Health advice, education or counseling done for COVID 19 Exposure t o viral disease 6123104783 86427 Z20.828 Pt will get tested at [facility] today or tomorrow, needs to quarantine at home until the results come back. No work until a negative test result [id number] Ruma barnett MD [facility] h [address] [facility] [address] [place] [place] [address] 05/27/2020 14:21:33 05/30/2020 13:52:12 Cough 51347138 R05 otc cough med prn, stay on inhalers and if not improving may need steroid taper. Ok to have covid vaccine in a few weeks if feeling better. Exposure t o viral disease 8402849833 61610 Z20.828 Due to cough need covid testing. She needs to quarantine at home until the results come back. No work until a negative test result. Pt having vaccine on 06/10/20, no allergy to toradol but is allergic to asa and nsaid. Allergy to toradol is contraindi cation to covid vaccine due to preservati ve in toradol and not the nsaid component. Pneumonia 730490495 J18. 9 Rest, start antibiotic s and can use otc cough med as needed, stay on current inhalers. Call if not improving within a few days to a week, sooner if worsening. . [id number] [facility] [address] [facility] [address] [place] [place] [address] 06/06/2020 06:58:00 06/06/2020 12:06:31 Essential hypertension 13666227 I10 BP running high. She will increase her amlodipine from 2.5 to 5 mg. Gastroesop hageal reflux disease 344224474 K21.9 Still with symptoms despite PPI. Advised taking it twice daily, we discussed losing weight and also putting blocks under the head of the bed. [id number] Allison Apodaca MD Main Office [address] [facility] [address] [place] [address] 07/07/2020 15:41:08 07/07/2020 16:34:44 Dysuria 01620707 R30.9 Actually nondescrip t abdominal pain that is difficult for her to localize. No evidence for an infection on urine dip. Will send culture. Rib pain 400089659 R07.8 1 Xray done and no fracture noted. Upper abdominal pain 831 44158 R10.10 Already had her gallbladde r removed. Doubt GERD since pain is not epigastric and is not related to meals although the pain is worse at night. We will get a CT scan and refer her to GI for further evaluation . [id number] Allison Apodaca MD Main Office [address] [facility] [address] [place] [address] 11/08/2020 14:56:04 11/08/2020 15:51:36 Dysuria 10938473 R30.9 Actually nondescrip t abdominal pain that is difficult for her to localize. No evidence for an infection on urine dip. Will send culture. Low back pain 098231211 M54.5 Possibly muscular pain. Flexeril has not been helping and cannot take NSAIDs. Kidney stones are a possibilit y but less likely because pain is bilateral. Gallbladde r removed so not in the differenti al. [id number] Allison Apodaca MD Main Office [address] [address] [place] [address] 11/23/2020 15:02:49 11/23/2020 16:05:25 Adult health examination 940976166 Z00.00 She is UTD with immunizati ons and [employer] care. Had colonoscop y done at [facility]. Due for a repeat. Varicella vaccination 68 681447 Z23 Advised to get this at her pharmacy. Anxiety state 281264031 F41.1 Essential hypertension 76745730 I10 Good control; continue current mgmt. Screening for malignant neoplasm of colon 403232931 Z12.11 [id number] Allison Apodaca MD Main Office [address] [facility] [address] [place] [address] 04/10/2021 09:22:13 04/10/2021 10:24:37 Preseptal cellulitis 902998179 L03.213 [id number] Allison Apodaca MD Main Office [address] [place] [address] 05/30/2021 08:12:53 06/01/2021 12:15:38 Hypertensive renal disease 66507776 I12.9 She will increase her amlodipine from 2.5 mg to 5 mg daily. Nasal congestion 9409696 0 R09.81 She will try saline nasal spray at first and if that doesn't help she will change to a steroid nasal spray. Chronic ki dney disease stage 2 695144110 N18.2 [id number] Allison Apodaca MD [address] [place] [address] 06/22/2021 10:53:12 06/23/2021 11:07:16 Hypertensive renal disease 34710903 I12.9 She is tolerating the increased dose of amlodipine and will call us tomorrow with her BP reading. Allergic rhinitis 929330 04 J30.9 She will change her nasal spray to see if this works better than the flonase and is not as drying. Her symptoms may be from the environmen t at work. Chronic ki dney disease stage 2 160963854 N18.2 [id number] Allison Apodaca MD [facility] [address] [place] [address] [place] [address] 01/18/2022 08:24:21 01/22/2022 09:43:10 COVID-19 977120583 U07.1 She understand s that she should hold her simvastati n while taking the paxlovid. Exacerbati on of intermittent asthma 264988828 J45.21 [id number] Allison Apodaca MD Main Office [address] [place] [address] 01/24/2022 09:17:55 01/24/2022 10:14:17 Adult health examination 794935833 Z00.00 She is UTD with immunizati ons and [employer] care. Had a colonoscop y in [address] Holder and due again in 2030. Needs infl uenza immunization 755930687 Z23 Hyperlipidemia 57800202 E78.5 Tolerating the simvastati n. Will check fasting lipid level. Asthma 288308396 J45.90 9 Generally good control with current mgmt. Rarely uses her rescue inhaler. She will stop her symbicort when allergy season as passed. If wheezes persists she will do a course of prednisone which she has at home. Chronic ki dney disease stage 2 036300810 N18.2 Hypertensi ve renal disease 07591544 I12.9 She is tolerating the increased dose of amlodipine and will call us tomorrow with her BP reading. History of SARS-CoV-2 29 80572819 84770409 Z86.16 Still with cough and fatigue. Has been vaccinated and boosted. [id number] Woo Houston MD Main Office [address] [address] 02/05/2022 09:17:37 02/05/2022 13:05:25 Acute sinusitis 19560027 J01.90 Given second sickening symptoms since COVID [...] or if asthma starts to flare. Asthma 725828919 J45.40 [id number] CHLOÉ CHAVEZ MD Main Office [address] [address] 04/19/2022 14:47:11 04/19/2022 15:43:52 Dysuria 00405912 R30.0 - pt complainin g of foul smelling urine and increased urinary frequency- urine dip stick showing moderate leukocytes - will send for UA and urine culture- pt was started on macrobid, will check urine culture for sensitivit ies. Pain of mu ltiple joints 18754459 M25.50 - pt has been having pain [...] gical disorders Edema of l ower extremity 482247396 R60.0 - pt having increased tightness and edema in the left lower extremity- ordered doppler studies to ensure no DVT Pain of le ft hip joint 5982117700 83593 M25.552 - most likely due to OA- pt is currently on lidocaine patches- pt was given tizanidine however patient did not start medication yet because she was nervous- pt was also started on meloxicam however she is allergic- gave patient a steroid taper- pt to start physical therapy- pt has been steroid injections in the joints [id number] CHLOÉ CHAVEZ MD Main Office [address]40 [facility] [address] [place] [place] [address] 04/26/2022 12:54:32 04/26/2022 14:27:27 Pain of multiple joints 69940027 M25.50 - pt has been having pain [...] visit Pain of le ft hip joint 5372695311 76896 M25.552 - most likely due to OA- pt is currently on lidocaine patches and started taking the muscle relaxer (tizanidin e 2mg nightly)- pt was also started on meloxicam however she is allergic- steroid paper provided moderate relief- pt as not yet started PT- pt has been steroid injections in the joints- pt continue to follow-up with [facility] Dysuria 10970075 R30.0 - improved- urine dip stick showing moderate leukocytes - urine culture was negative, pt completed antibiotic treatment Edema of l ower extremity 407068900 R60.0 - pt having increased tightness and edema in the left lower extremity- lower extremity doppler was negative Arthritis of right hip 7304552328 184681 M13.851 - symptoms are currently well controlled [id number] Allison Apodaca MD Main Office [address] [address] [place] [address] 07/24/2022 15:35:00 07/24/2022 16:21:03 Hypertensive renal disease 42840264 I12.9 She is tolerating the amlodipine and has had good BP readings. Continue current mgmt. Eczema 05647941 L30.9 Tried an anti-funga l cream on the area w/o much help. Pain of bi lateral hip joints 6457712410 6600492 M25.552 She has end-stage OA and is scheduled for hip replacemen t by Dr Green. The right will be done 08/13/22 and the left the following month. Her pre-[facility] is scheduled for later this month at [facility]. Low back pain 428512427 M54.50 It is unclear if this is secondary to her hip pain or if it is a separate issue. Chronic ki dney disease stage 2 428961737 N18.2 [id number] Allison Apodaca MD Main Office [address] [address] [place] [address] 12/06/2022 11:32:06 12/06/2022 12:05:31 Pain of toe of right foot 7537915232 06731 M79.674 Probable toe sprains but will get an xray to evaluate. Explained to her that it could take 6 months to improve. She is not requesting meds at this time. [id number] Allison Apodaca MD Main Office [address] [address] [place] [address] 01/29/2023 09:28:05 01/29/2023 10:18:01 Adult health examination 627383434 Z00.00 She is UTD with immunizati ons and [employer] care. Had a colonoscop y in [address] Holder and due again in 2030. She is UTD with COVID vaccine and was advised to get the booster at her pharmacy. She was also advised to get the shingles vaccine. We will give her the flu and tetanus today. We discussed exercise and cardiac risk factors. Needs infl uenza immunization 234026802 Z23 Chronic ki dney disease stage 2 395420135 N18.2 Hypertensi ve renal disease 69755064 I12.9 Running high so will change her med. D/c amlodipine and start amlodipin/ benazepril Hyperlipidemia 32258655 E78.5 Tolerating the simvastati n. Will check fasting lipid level. Moderate p ersistent asthma 485377027 J45.40 Uses maintenanc e inhaler and rarely uses her rescue inhaler. Obstructiv e sleep apnea syndrome 55578080 G47.33 Stable with CPAP. Requires a tetanus booster 025829989 Z23 Varicella vaccination 68 280827 Z23 Advised to get this at her pharmacy. [id number] Darryl Moran MD Main Office [address] [facility] [address] [place] [address] 02/02/2023 10:16:23 02/02/2023 11:04:23 COVID-19 472897873 U07.1 Tylenol OTC, not to exceed package [...] sx worsent then go to nearest ED [id number] Darryl Moran MD Main Office [address] [place] [address] 02/13/2023 08:59:52 02/13/2023 09:31:25 Post-acute COVID-19 1706374707 U09.9 discussed possibilit y of rebound infection after Paxlovid, encouraged extra rest and hydration. Acute sinusitis 42081009 J01.90 begin abx as directed for 10 days on full stomach , add probiotics . Nasal saline 2-3 times daily. Avoid decongesta nts due to elevated blood pressure. Moderate p ersistent asthma 068094684 J45.40 persistent cough , but no evidence of pneumonia or wheezing on the exam. Continue current asthma medication s. Hypertensi ve renal disease 65654073 I12.9 Restart amlodipine benazepril today, continue low sodium diet. Check blood pressure at home. F/u with PCP as scheduled next month. Chronic ki dney disease stage 2 512282424 N18.2 [id number] Allison Apodaca MD Main Office [address] [place] [address] 04/04/2023 08:37:05 04/04/2023 09:19:14 Hypertensive renal disease 93596449 I12.9 BP still running a little high. Will increase her dose of amlodipine -benazepri l from 09/12 to 02/22. Some improvemen t on meds. Will increase her dose and check labs. Hyperlipidemia 97103727 E78.5 Tolerating the simvastati n. Will check fasting lipid level. Chronic dney disease stage 1 781746083 N18.1 [id number] Allison Apodaca MD [facility] [address] [place] [address] 07/03/2023 10:01:27 07/03/2023 11:02:38 Acute bronchitis 01559725 J20.9 Exacerbati on of moderate persistent asthma 758570783 J45.41 continue inhaler use. Notes Breyna not working as well as symbicort and she is feelign dizzy, heart racing when she takes it. she will give it a little more time. Acute sinusitis 99111449 J01.90 Hydration, rest, tylenol or ibuprofen as needed, tea with honey, OTC cough meds as needed. [id number] Allison Apodaca MD Main Office [address] [address] [place] [address] 07/11/2023 13:38:15 07/11/2023 14:08:25 Candidiasis of mouth 32592640 B37.0 x1 week-was on prednisone course for asthma exacerbati on and is on Breyna inhaler-pt completed the prednisone course and noticed white spots on her tongue-PE revealed raised, white patches on the tongue-quang l have pt complete x10 day course of miconazole -discussed with pt proper usage of inhaler with rinses after each use [id number] Allison Apodaca MD Main Office [address] [place], [place] [address] [address] 08/01/2023 08:46:52 08/01/2023 09:17:55 Hypertensive renal disease 05222758 I12.9 Good control; continue current mgmt. Candidiasis of mouth 797 16665 B37.0 Treated with diflucan and resolved. Hyperlipidemia 71447041 E78.5 Tolerating atorvastat in. Will check fasting lipid level. Chronic ki dney disease stage 1 365592587 N18.1 [id number] Allison Apodaca MD Main Office [address] [place] [address] 10/16/2023 14:49:36 10/16/2023 15:25:36 Cough 31342259 R05.9 Secondary to URI and possibly PND from allergies. No role for abx. Upper resp iratory infection 18484668 J06.9 Symptomati c treatment. [id number] Woo Houston MD Main Office [address] [address] [place] [address] 11/18/2023 15:46:29 11/18/2023 17:00:01 Upper abdominal pain 18145116 R10.10 ruq pain x ~ 2 wks - had lap ubaldo 6.18? SE to doxysee below - wonder if has hepatic flexure syndrome vs other Nausea 465530429 R11.0 if no help c nida tea or flat nida vladimir, then trial c prn zofran Constipation 85336704 K5 9.00 see above/belo w - rec colace qd, stay well hydrated Early satiety 067841724 R68.81 ? if d/t above constipati on/hepatic flexure syndromewo nder if has gastric outlet obstructio n - check ugis/sbft Acute sinusitis 94632704 J01.90 stop doxy -- cough better - wonder if above sxs d/t SE Gastroesop hageal reflux disease 453115342 K21.9 cont ppi as dir [id number] Woo Houston MD Main Office [address] [facility] [address] [facility] [place], [place] [address] 12/03/2023 11:23:26 12/03/2023 12:14:01 Pain of left shoulder joint 4901145251 1896631 M25.512 see below - will check xray - if + fx then will get ortho evalcont tyl, ice Fall W19.XXXA fell out of bed accidental ly, landed on L shoulder Obstructiv e sleep apnea syndrome 30788663 G47.33 cont cpap Early satiety 728877856 R68.81 ? 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 has hepatic flexure syndrome [id number] Woo Houston MD Main Office [address] [facility] [address] [place] [place] [address] 01/13/2024 15:49:29 01/13/2024 17:05:06 Skin lesion 01677443 L98.9 On right arm x 8 days from getting hit with a metal door.Appea rs to be healing - cont triple abx ointment 2-3 times/day. Return to clinic if worsens or fails to improve.re c stop hydrogen peroxideof fered reassuranc e - has evidence of reactive hyperemia and no evidence of cellulitis Tetanus UTD Pain of le ft shoulder joint 5997890452 5794816 M25.512 see below - will check xray - if + fx then will get ortho evalcont tyl, ice 9.24 - better but not resolved, cont hep, pt declined PT/ortho at this time, may consider if no better Needs infl uenza immunization 924362415 Z23 19 YEARS AND OLDER ONLY [id number] Allison Apodaca MD Main Office [address] [facility] [address] [facility] [place] [address] 02/04/2024 15:43:12 02/04/2024 16:40:54 Adult health examination 806168541 Z00.00 She is UTD with immunizati ons and A[employer] care. Had a colonoscop y in [address] Holder and due again in 2030. She is UTD with COVID vaccine and was advised to get the booster at her pharmacy. She was also advised to get the shingles vaccine. We will give her the flu and tetanus today. We discussed exercise and cardiac risk factors. Hypertensi ve renal disease 98375273 I12.9 Running the last couple of times. Will increase her dose of amlodipine 10-benazap ril 20 mg to 10/40 mg. Chronic ki dney disease stage 1 193051109 N18.1 Hyperlipidemia 54833043 E78.5 Tolerating atorvastat in. Will check fasting lipid level next appointmen t. Intermittent asthma 4276 79244 J45.20 Well-contr olled with current mgmt. Eczema 99530128 L30.9 Possible contact dermatitis . Gastroesop hageal reflux disease 241582529 K21.9 Still with symptoms despite PPI. Advised taking it twice daily, we discussed losing weight and also putting blocks under the head of the bed. Obstructiv e sleep apnea syndrome 67981542 G47.33 Stable with CPAP. [id number] Allison Apodaca MD Main Office [address] [facility] [address] [facility] [place] [address] 03/17/2024 14:26:11 03/17/2024 16:22:34 Abdominal pain 41249835 R10.9 Unclear etiology. She may need a CT scan but would like to hold off until she sees GI since she may need to cover the cost of any imaging study. [id number] Allison Apodaca MD Main Office [address] [address] [place] [address] 03/23/2024 13:02:51 03/23/2024 13:33:11 Acute urinary tract infection 069757534 N39.0 was evaluated at [facility] on 03/22 for UTI-was given cefpodoxim e 10 day course-adv ised by ED to repeat culture, will obtain culture and send to lab Hydronephrosis 41597184 N13.30 CT scan revealed right hydronephr osis-will repeat urinalysis Chronic ki dney disease stage 1 792473180 N18.1 [id number] Allison Apodaca MD [facility] [address] [address] [place] [address] 04/16/2024 13:58:54 04/16/2024 15:40:12 Acute sinusitis 93894195 J01.90 Will do an abx for her sinusitis which should also help with a presumed UTI. She will give a urine sample first before starting the abx. Dysuria 16019427 R30.9 Actually nondescrip t abdominal pain that [...] Reviewed nursing notes?Bruce mmended action Antibiotic treatment [id number] Darryl Moran MD Main Office [address] [place] [address] 06/13/2024 10:38:11 06/16/2024 08:35:13 Exposure to influenzavirus 426700877 Z20.828 Respirator y syncytial virus infection 30898088 B97.4 Viral syndrome 520214891 B34.9 [id number] Allison Apodaca MD Main Office [address] [address] [place] [address] 06/23/2024 14:49:36 06/23/2024 15:31:43 Acute bronchitis 99148228 J20.9 Probable viral infection. No abx needed. She will treat her symptoms with OTC meds. Expiratory wheezing 9763 007 R06.2 She was on a 6-day course of steroids but had rebound in her symptoms once she stopped. Will do an extended course of prednisone to prevent rebound. Acute sinusitis 73221598 J01.90 Started doxycyclin e 2 days ago. Spoke to the on-call doctor. [id number] Allison Apodaca MD Main Office [address] [place], [place] [address] [address] 06/27/2024 10:46:51 06/27/2024 11:27:29 Chronic cough 08881064 R05.3 Since her cough has been an intermitte nt problem since mid April (2 months ago) I will refer her to pulmonolog y for further evaluation . She continues to have symptoms on prednisone and inhalers/u pdrafts. Candidiasis of mouth 797 01704 B37.0 We treated her in the past for this but her symptoms have returned. She is at risk because of steroid use and abx use. Candidiasi s of esophagus 91766642 B37.81 Treat for 2 weeks with diflucan. Will refer to GI if this persists. [id number] Allison Apodaca MD Main Office [address] [place] [address] [place] [address] 09/21/2024 15:27:41 09/21/2024 15:53:11 Acute pharyngitis [id number] J02.9 in office strep test is negative-l ikely viral-endo rses symptoms of sore throat, pain with swallowing food-denie s of any fever, chills, sob, wheezing, sinus pain-discu ssed conservati ve measuremen ts Seasonal allergy 5206960 04 J30.2 35796 -takes claritin daily-was given nasal spray by pulmonolog ist, has not started- [id number] Allison Apodaca MD Main Office [address] [address] [place] [address] 09/23/2024 09:48:24 09/23/2024 10:20:28 Sore throat 581997406 J02.9 85978 in office strep test is negativex1 week of symptoms-l ikely viral-endo rses symptoms of sore throat, pain with swallowing food, fatigue-de nies of any fever, chills, sob, wheezing, sinus pain-discu ssed conservati ve measuremen ts [id number] Allison Apodaca MD Main Office [address] [address] [place] [address] 09/26/2024 10:51:40 09/26/2024 11:57:17 Acute cough [id number] R05.8 [id number] Secondary to URI and possibly PND from allergies. May also be secondary to COPD. Acute exac erbation of chronic obstructive pulmonary disease 320614677 J44.1 210754 Secondary to URI and possibly PND from allergies. No role for abx. Chronic ob structive pulmonary disease 32043165 J44.9 072625001 recently diagnosed and followed by pulmonary. The dx was recently confirmed by PFT's. [id number] Allison Apodaca MD Main Office [address] [address] [place] [address] 12/01/2024 14:12:30 12/01/2024 14:42:25 Eruption 819946184 R21 66884 Contact dermatitis vs venous stasis. Does not appear to be cellulitis . No bull's eye rash. Edema of l ower extremity 084480693 R60.0 39278 Possibly secondary to venous stasis. Advised elevation. [id number] Allison Apodaca MD Main Office [address] [address] [place] [address] 01/01/2025 12:46:09 01/01/2025 13:56:21 Candidiasis of mouth 36060644 B37.0 We treated her in the past for this but her symptoms have returned. She is at risk because of steroid use. Requires a ntibiotic coverage for dental procedure 6893196518 Z79.2 [id number] Tenosynovitis 22085932 M 65.90 54170 Pain at her right thumb. [id number] Darryl Moran MD Main Office [address] [facility] [address] [place] [address] 01/16/2025 09:16:38 01/16/2025 10:24:02 Viral syndrome 560690667 B34.9 COVID-19 040228938 U07.1 -Tylenol OTC, not to exceed package insert for pain or fever q4-6h advised prn. Counselled on not exceeding more than 3g/day.-Th roat Lozenges otc prn for sore throat-Alessandro twater gargle-Res t advised.-A dequate hydration enforced-S phuong sprays advised-hu midifier use enforced.- Paxlovid sent, last available kidney function reviewed, advise potential side effects,-A dvised to hold statin during paxlovid duration and return after completion , monitor bp on amlodipine .-Also advised can use a teaspoon honey for cough-Norma marsha josi sent-Champion tion precaution discussed. -Precautio n advised if any difficulty breathing or tmax 103 >, unable to hydrate, sx worsen then go to nearest ED.-Work note given per current guideline. [id number] Allison Apodaca MD Main Office [address] [address] [place] [address] 01/21/2025 15:10:35 01/21/2025 16:14:38 Candidiasis of mouth 64116937 B37.0 98319 We treated her in the past for this but her symptoms have returned. She is at risk because of steroid use. She has tried clotrimazo le troches and nystatin swish and swallow and would like to try something different. Body mass index 30+ - obesity 342564887 Z68.30 E66.9 She has severe LIZZ. Impacted c erumen of bilateral ears [id number] 627795 H61.23 381451 [id number] Allison Apodaca MD Main Office [address] [facility] [address] [place] [address] 02/16/2025 15:37:04 02/16/2025 16:41:27 Adult health examination 497680815 Z00.00 She is UTD with [employer] [facility]. Her last PAP was June 2022 so she is due in 4 months. She will make a f/u appointmen t.Had the initial COVID vaccine series and 1 booster in March 2021.UTD with tetanus vaccine and will get a flu vaccine today.Advi sed to get a pneumonia vaccine (prevnar 20) at her pharmacy.H ad a colonoscop y done by Dr Holder in 2020 and due again in 2030. Influenza vaccine needed [id number] 106 Z23 65 YEARS AND OLDER Hyperlipidemia 64122581 E78.5 Tolerating atorvastat in. Will check fasting lipid level next appointmen t. Gastroesop hageal reflux disease 439849212 K21.9 Currently under control w/PPI. Chronic ki dney disease stage 1 893442440 N18.1 Hypertensi ve renal disease 31939642 I12.9 Good control; continue current mgmt. Moderate p ersistent asthma 756324754 J45.40 Uses maintenanc e inhaler and rarely uses her rescue inhaler. The last time her rescue inhaler was filled was 8 months ago. Obstructiv e sleep apnea syndrome 29738719 G47.33 Stable with CPAP. Bone density finding 385 116611 M85.89 She will schedule Screening for malignant neoplasm of breast 205489576 Z12.39 She will schedule Administra tion of pneumococcal vaccine 74892672 Z23 Advised to get this at her pharmacy. Health Concerns Section Related Observation LastModified by Organization Detai ls LastModified Time None Recorded Concern Status LastModified by Organization Details LastModified Time None Recorded Advance Directives Directive Y: Payers Insurance Date Sequence Insurance Name Policy Number Policy Lan Covered Member ID Lan Member ID Guarantor Name 02/16/2025 1 [facility] [place] [place] [id number] Renee Pradhan [id number] Renee Pradhan 01/15/2019 1 [facility] Renee Pradhan [id number] Renee Pradhan 01/15/2019 1 [facility] [place] [place] [id number] Renee Pradhan [id number] Renee rPadhan Notes Date Note Type Note Provider Name and Address Organization Details Recorded Time 12/01/2024 text/html ROS as noted in the HPI She was camping 3 days ago and developed a rash at her ankles bilaterally and lower legs. She initially had ankle swelling but this has mostly resolved since she has been keeping them elevated. She denies any pain or itch. Has been using calamine lotion on the rash. No other family members are affected. Allison Apodaca MD [address] [facility] [address], [place], [address], [facility] 12/01/2024 14:52:17 01/01/2025 text/html ROS as noted in the HPI She uses a steroid inhaler and rinses her mouth after each use. She has had thrush in the past and feels that it has returned since yesterday. She has white spots on her tongue and pain at the sides. She denies any pain/discomfort with swallowing. She has been having pain at her right thumb which radiates up her arm. It has been most noticeable over the last 3 days. 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 No prior episodes and she hasn't taken any meds. Allison Apodaca MD [address] [facility] [address], [place], [address], [facility] 01/02/2025 11:59:06 01/16/2025 text/html COVID-19 Symptom s September 2019Reported by PatientUpper Respiratory SymptomsFor covid-19 signs and symptoms, patient reportscough worsening,shortness of breath worsening,chills worsening,muscle pain worsening,headache worsening,sore throat worsening,new loss of taste or smell,vomiting or diarrhea worsening (resolved.), andfatigue worsening. For quality, patient reportsproductive cough. For context, patient reportsasthmaandcopd. For associated symptoms, patient reportswheezing,fatigu e,sweats,vomiting,runn y nose, andbody aches. For contacts and exposure, patient reportspotential exposure in specific settings where covid-19 cases have been reported. For prior labs and imaging, patient reportscovid-19 nasopharyngeal swab. For suitability of residential setting, patient reportspatient does have caregiver at home,patient does have gloves and face masks available,patient does have members of the household at increased risk of complications,patient does have resources to access food and other necessities,patient does have separate bedroom and bathroom for patient, andpatient is able to adhere to hand hygiene and cough etiquette practices. Darryl Moran MD [address] [address], [place], [address], [facility] 01/16/2025 10:36:58 01/21/2025 text/html ROS as noted in the HPI She feels that she has thrush again. She was on an abx recently and this sets it off for her. She has been treated this past year with clotrimazole troches and nystatin liquid and would like to try something different.She also has been having decreased hearing and mild pain in her right ear. Allison Apodaca MD [address] [address], [place], [address], [facility] 01/21/2025 18:02:48 02/16/2025 text/html Generic HPI TemplateReported by PatientHere for a PE.Currently doing well.She had her third bout of COVID one month ago (January 2025) and completed paxlovid. Allison Apodaca MD [address] [address], [place], [address], [facility] 02/16/2025 17:43:20 OBGyn Episode No OBEpisode recorded.
--- OUTSIDE RECORDS SUMMARY | 2025-02-19 18:00 | XMS_ITS | Continuity of Care Document ---
Author Organization [facility], Main Office Address [address] [place] [address] Care Team Providers Care Storage Battery Inspector Name Role Phone RAYMUNDO APODACA Primary Care Provider MARCELA LEWIS Marketing Area Manager MAE HUERTA Vascular Surgeon [facility] ([facility]) Orthopedic Surgeon [facility] G[address]i [address] [phone] ABBI SCHRADER Urologist YVONNE AGUDELO Collection Coordinator [facility] Neurologi st Assessment No assessment recorded. Plan of Treatment Reminders Order Date Submit Date Provider Last Modified By Organization Details Last Modified Time Details Appointments FOLLOW UP 2025 03:45P M Raymundo martinez MD Not available Not available Not available Lab lipid panel, serum 2024 [facility] (Centralized Electronic Ordering - All Locations), Patient Can Go To The Location Of Their Choice, 02/16/2025 17:37:45 CBC w/ auto diff 2024 [facility] (Centralized Electronic Ordering - All Locations), Patient Can Go To The Location Of Their Choice, 02/16/2025 17:37:45 CMP, serum or plasma 2024 [facility] (Centralized Electronic Ordering - All Locations), Patient Can Go To The Location Of Their Choice, [id number] 02/16/2025 17:37:45 magnesium , serum or plasma 2024 [facility] (Centralized Electronic Ordering - All Locations), Patient Can Go To The Location Of Their Choice, [id number] 02/16/2025 17:37:45 Referral None recorded. Procedures None recorded. Surgeries None recorded. Imaging bone density [address] [facility], [address] [place], [address], 02/16/2025 16:41:27 MAMMO, screening , bilateral - Perform Diagnosti c Mammogram and Breast Ultrasoun d if needed / Perform Ultrasoun d Guided Aspiratio n and/or Breast Biopsy if warranted [address] [facility], [address] [place], [address], 02/16/2025 16:41:27 Medication Orders albuterol sulfate HFA 90 mcg/actua tion aerosol inhaler 2024 [facility], [facility], [place], [address], 02/16/2025 16:21:05 Patient TargetsNo targets recorded. Patient Instructions Encounter Date Encounter Id Patient Instructions Last Modified By Organization Details Last Modified Time 02/16/2025 [id number] gastroesophageal reflux disease (GERD): care instructions [email or web address] Not available 02/16/2025 16:05:15 high cholesterol : care instructions [email or web address] Not available 02/16/2025 16:05:15 chronic kidney disease: care instructions [email or web address] Not available 02/16/2025 16:05:15 learning about chronic kidney disease acennerazzo Not available 02/16/2025 16:05:15 sleep apnea: car e instructions [email or web address] Not available 02/16/2025 16:05:15 Reason for Referral None Reported. Results Created Date Observation Date Name Description Value Unit Range Abnormal Flag Note LastModifiedBy Organization Detail LastModifiedTime 01/22/2001/21/2025 cerum en remov al (PROC ) done by Roz Not Available In-Office Order Internal Use Only DO Not Attach Compendium DO Not Attach Compendium, Do Not Delete/merge, [id number] 01/21/2025 16:03:11 Result Notes None recorded. Problems Name Problem SNOMED Code Status Onset Date Resolution Date Notes Provider Name and Address Organization Details Recorded Time Allergic rhinitis 86901970 Active Not Available [facility] 11:13:07 Anxiety state 450057301 Active no meds; not currentl y an issue Not Available [facility] 11:13:07 Tobacco user 731340241 Completed 04/26/2014 Raymundo Apodaca MD [address] [address], [place], [address] , [facility] 6 07:25:24 History of clinical finding in subject 222263355 Completed 04/26/2014 Raymundo Apodaca MD [address] [address], [place], [address] , [facility] 6 07:25:24 Asthma 068591001 Completed 04/24/2017 uses proair reevesn Raymundo Apodaca MD [address] [address], [place], [address] , [facility] 3 09:51:42 Acute asthma 682146288 Completed 04/24/2017 Roz Olmos MA null, [facility] 7 15:14:00 Pure hypercho lesterol emia 606863625 Completed 07/31/2016 Raymundo Apodaca MD [address] [address], [place], [address] , [facility] 7 10:44:33 Obstruct aditya sleep apnea syndrome 00324362 Active CPAP Not Available [facility] 11:13:07 Postmeno pausal bleeding 60523857 Active seen by Dr Karine murguia; had endometr ial biopsy which was negative . Not Available [facility] 11:13:07 Low back pain 798022330 Active Not Available [facility] 11:13:07 Sciatica 59434351 Active Not Available [facility] 11:13:07 Tinea pedis 3026591 Active Not Available [facility] 11:13:07 Exposure to SARS-CoV -2 Completed 07/08/2020 Removal Reason: Problem added by user maddison bartlett from the COVID-19 watch flag Raymundo Apodaca MD [address] [facility] [address], [place], [address] , [facility] 11:13:27 Influenz a vaccine needed 34731713368 06 Completed 201111/17/2013 RECORDED 02/05/20 12 10:38AM BY YUN SAVAGE I, OFFICE VISIT Raymundo Apodaca MD [address] [address], [place], [address] , [facility] 6 07:25:24 Obesity 583717640 Completed 201111/17/2013 IMPRESSI ON: SHE IS WORKING ON WEIGHT LOSS, IMPROVIN G DIET AND EXERCISI NG MORE.; RECORDED 02/05/20 12 8:12AM BY SPEEDY RODRGIUEZ ON/LUCRETIA Apodaca MD [address] [address], [place], [address] , [facility] 6 07:25:24 Adult health examinat ion Completed [...] BY SPEEDY RODRIGUEZ ON/LUCRETIA Apodaca MD [address] [facility] [address], [place], [address] , [facility] 6 07:25:24 Influenz a vaccine needed 27481384847 06 Completed 201112/14/2013 RECORDED 02/05/20 12 10:38AM BY YUN SAVAGE I, OFFICE VISIT Raymundo Apodaca MD [address] [facility] [address], [place], [address] , [facility] 6 07:25:24 Obesity 165945931 Completed 201112/14/2013 IMPRESSI ON: SHE IS WORKING ON WEIGHT LOSS, IMPROVIN G DIET AND EXERCISI NG MORE.; RECORDED 02/05/20 12 8:12AM BY SPEEDY RODRIGUEZ ON/LUCRETIA Apodaca MD [address] [facility] [address], [place], [address] , [facility] 6 07:25:24 Adult health examinat ion Completed [...] BY SPEEDY RODRIGUEZ ON/LUCRETIA Apodaca MD [address] [facility] [address], [place], [address] , [facility] 6 07:25:24 Referred otalgia 68827897 Completed 201211/17/2013 IMPRESSI ON: THIS MAY BE FROM ALLERGIE S CREATING EUSTACHI ON TUBE DYSFUNCT ION. SHE WILL TRY A DECONGES TANT AND WAS ALSO GIVEN AN ENT REFERRAL . SHE WILL MAKE AN APPT IF HER SX PERSIST. ; RECORDED 05/08/19 13 8:57AM BY STEFFANY ALLRED MA, SPEEDY ON/LUCRETIA Apodaca MD [address] [facility] [address], [place], [address] , [facility] 6 07:25:24 Renewal of prescrip tion Completed 201211/17/2013 RECORDED 05/08/19 13 8:57AM BY STEFFANY ALLRED MA, FRANSISCAATI ON/ADDMARTÍN Apodaca MD [address] [facility] [address], [place], [address] , [facility] 6 07:25:24 Active or passive immuniza tion Completed 201211/17/2013 RECORDED 05/08/19 13 9:34AM BY ELSA VELIZ PA-C, OFFICE VISIT Raymundo Apodaca MD [address] [facility] [address], [place], [address] , [facility] 6 07:25:24 Referred otalesequiel [id number] Completed 201212/14/2013 IMPRESSI ON: THIS MAY BE FROM ALLERGIE S CREATING EUSTACHI ON TUBE DYSFUNCT ION. SHE WILL TRY A DECONGES TANT AND WAS ALSO GIVEN AN ENT REFERRAL . SHE WILL MAKE AN APPT IF HER SX PERSIST. ; RECORDED 05/08/19 13 8:57AM BY STEFFANY ALLRED MA, FRANSISCAATI ON/LUCRETIA Apodaca MD [address] [facility] [address], [place], [address] , [facility] 6 07:25:24 Renewal of prescrip tion Completed 201212/14/2013 RECORDED 05/08/19 13 8:57AM BY STEFFANY ALLRED MA, FRANSISCAATI ON/LUCRETIA Apodaca MD [address] [facility] [address], [place], [address] , [facility] 6 07:25:24 Active or passive immuniza tion Completed 201212/14/2013 RECORDED 05/08/19 13 9:34AM BY ELSA VELIZ PA-C, OFFICE VISIT Raymundo Apodaca MD [address] [facility] [address], [place], [address] , [facility] 6 07:25:24 Disorder of upper respirat ory system Completed 201211/17/2013 RECORDED 07/09/19 13 8:45AM BY STEFFANY ALLRED MA, SPEEDY ON/LUCRETIA Apodaca MD [address] [facility] [address], [place], [address] , [facility] 6 07:25:24 Administ ration of diphther ia and tetanus vaccine Completed 201211/17/2013 RECORDED 07/09/19 13 8:45AM BY STEFFANY ALLRED MA, SPEEDY ON/LUCRETIA Apodaca MD [address] [facility] [address], [place], [address] , [facility] 6 07:25:24 Disorder of upper respirat ory system Completed 201212/14/2013 RECORDED 07/09/19 13 8:45AM BY STEFFANY ALLRED MA, SPEEDY ON/LUCRETIA Apodaca MD [address] [facility] [address], [place], [address] , [facility] 6 07:25:24 Administ ration of diphther ia and tetanus vaccine Completed 201212/14/2013 RECORDED 07/09/19 13 8:45AM BY STEFFANY ALLRED MA, SPEEDY ON/LUCRETIA Apodaca MD [address] [facility] [address], [place], [address] , [facility] 6 07:25:24 Conjunct ivitis 1061262 Completed 201211/17/2013 RECORDED 07/11/19 13 2:41PM BY JOSIE TRIPATHI MA, SPEEDY ON/LUCRETIA Apodaca MD [address], [place], [address] , [facility] 6 07:25:24 Conjunct ivitis 3769752 Completed 201212/14/2013 RECORDED 07/11/19 13 2:41PM BY JOSIE TRIPATHI MA, ANNOTATI ON/ADDMARTÍN Apodaca MD [address], [place], [address] , [facility] 6 07:25:24 Shoulder joint pain 953055712 Completed 201211/17/2013 IMPRESSI ON: WOULD NOT RECCOMEN D X-RAY. PT ORDER. F/U IF NOT IMPROVIN G; RECORDED 10/03/19 13 11:35AM BY STEFFANY ALLRED MA, ANNOTATI ON/LUCRETIA Apodaca MD [address], [place], [address] , [facility] 6 07:25:24 Acute sinusiti s 74482807 Completed 201211/17/2013 RECORDED 10/03/19 13 11:35AM BY STEFFANY ALLRED MA, ANNOTATI ON/ADDMARTÍN grey MA [facility] 5 09:52:00 Screenin g for malignan t neoplasm of breast Completed 201211/17/2013 RECORDED 10/03/19 13 11:35AM BY STEFFANY ALLRED MA, ANNOTATI ON/LUCRETIA Apodaca MD [address], [place], [address] , [facility] 6 07:25:24 Cough 78882453 Completed 201211/17/2013 IMPRESSI ON: SHE IS CONCERNE D THAT HAS PNEUMONI A AND WOULD LIKE CXR OR ANTIBIOT ICS; RECORDED 10/03/19 13 11:35AM BY STEFFANY ALLRED MA, SPEEDY ON/LUCRETIA Apodaca MD [address], [place], [address] , [facility] 6 07:25:24 Shoulder joint pain 660166645 Completed 201212/14/2013 IMPRESSI ON: WOULD NOT RECCOMEN D X-RAY. PT ORDER. F/U IF NOT IMPROVIN G; RECORDED 10/03/19 13 11:35AM BY STFEFANY ALLRED MA, SPEEDY ON/ADDMARTÍN Apodaca MD [address], [place], [address] , [facility] 6 07:25:24 Acute sinusiti s 22663433 Completed 201212/14/2013 RECORDED 10/03/19 13 11:35AM BY STEFFANY ALLRED MA, ANNOTATI ON/ADDEN DUM Josie grey MA [facility], [facility] 5 09:52:00 Screenin g for malignan t neoplasm of breast Completed 201212/14/2013 RECORDED 10/03/19 13 11:35AM BY STEFFANY ALLRED MA, SPEEDY ON/LUCRETIA Apodaca MD [address] [facility] [address], [place], [address] , [facility] 6 07:25:24 Cough 92242033 Completed 201212/14/2013 IMPRESSI ON: SHE IS CONCERNE D THAT HAS PNEUMONI A AND WOULD LIKE CXR OR ANTIBIOT ICS; RECORDED 10/03/19 13 11:35AM BY STEFFANY ALLRED MA, ANNOTATI ON/LUCRETIA Apodaca MD [address], [place], [address] , [facility] 6 07:25:24 Acute upper respirat ory infectio n 84047198 Completed 201211/17/2013 IMPRESSI ON: COMPLETE D ZPACK 4 DAYS AGO, NO ADDITION AL ABX NECESSAR Y; RECORDED 10/23/19 13 3:36PM BY YUN SAVAGE I, SPEEDY ON/LUCRETIA Apodaca MD [address] [facility] [address], [place], [address] , [facility] 6 07:25:24 Acute upper respirat ory infectio n 11082568 Completed 201212/14/2013 IMPRESSI ON: COMPLETE D ZPACK 4 DAYS AGO, NO ADDITION AL ABX NECESSAR Y; RECORDED 10/23/19 13 3:36PM BY YUN SAVAGE I, SPEEDY ON/LUCRETIA Apodaca MD [address] [facility] [address], [place], [address] , [facility] 6 07:25:24 Hyperlip idemia 25193316 Active 2016 Not Available [facility] 1 11:13:07 Acute urticari a 960876166 Completed 201604/24/2017 Roz Olmos MA null, [facility] 7 15:14:04 Abscess of chest wall 38710199 Active 2016 I&Ded by Dr Huerta. Not Available [facility] 1 11:13:07 Elevated blood-pr essure reading without diagnosi s of hyperten seferino 417777224 Completed 201601/21/2019 Raymundo Apodaca MD [address] [facility] [address], [place], [address] , [facility] 9 10:23:23 Moderate persiste nt asthma 072306934 Active 2016 Not Available [facility] 1 11:13:07 Cholecys titis 02456374 Active 2017 secondar y to stones; admitted to [facility] 10/07- Not Available [facility] 1 11:13:07 Arthriti s of right hip 06287282951 66571 Active 2018 seen at [facility]; scheduli ng surgery Raymundo Apodaca MD [address] [address], [place], [address] , [facility] 3 08:53:32 Gastroes ophageal reflux disease 980701809 Active 2018 Not Available [facility] 1 11:13:07 Hyperten sive renal disease 19375881 Active 2020 Not Available [facility] 1 11:13:07 History of SARS-CoV -2 06028109723 5690751 Active 2021 Raymundo Apodaca MD [address] [address], [place], [address] , [facility] 2 12:57:05 Plantar fasciiti s of left foot 94505566383 134976 Active 2021 Seen at [facility] Raymundo Apodaca MD [address] [address], [place], [address] , [facility] 2 18:35:40 Closed fracture of phalanx of foot 54940708 Active 2022 Small toe after trauma. Seen by ortho. [facility]. Raymundo Apodaca MD [address] [address], [place], [address] , [facility] 3 11:54:04 Chronic kidney disease stage 1 046886774 Active 2022 [facility]ki fermin, [facility] 3 10:22:01 Intermit tent asthma 559663477 Active 2023 Raymundo Apodaca MD [address] [address], [address] , [facility] 4 07:58:32 Acute bronchit is 28510686 Active 2023 Baldev Gray [facility] [address] [address], [address] , [facility] 4 10:49:28 Exacerba tion of moderate persiste nt asthma 321453783 Active 2023 CANDICE Salas [address] [facility] [address], [place], [address] , [facility] 4 10:49:34 Acute sinusiti s 68107344 Completed 202301/16/2025 JACKELIN Terry, [facility] 5 09:52:00 Pain of left shoulder joint 77361972459 047851 Active 2023 Jamin Gong PA-C [address] [address], [place], [address] , [facility] 4 12:23:42 Constipa tion 76873865 Active 2023 Jamin Gong PA-C [address] [address], [place], [address] , [facility] 4 12:25:47 Skin lesion 76128256 Active 2023 Ceci fermin, [facility] 4 16:25:29 Microsco pic hematuri a 336121558 Active 2024 Benign; seen by urology, Dr Schrader . Raymundo Apodaca MD [address] [facility] [address], [place], [address] , [facility] 5 16:27:32 Overacti ve urinary bladder 544544919 Active 2024 On meds and followed bu urology. Raymundo Apodaca MD [address] [facility] [address], [place], [address] , [facility] 5 16:28:20 Problem Notes None recorded. Procedures Surgical History Date Name Laterality Status Provider Name and Address Organization Details Recorded Time 01/17 Most Recent Mammogram completed Shala Nuno [facility] 4 14:14:20 01/17 Mammogram screening completed Shala Nuno [facility] 4 14:14:14 06/14 Date of Last Pap Smear completed Gabriela Mcdonald [facility] 3 13:56:18 01/31 Date of Last Colonoscopy completed Priscil la Mayo [facility] 1 09:45:40 01/31 colonoscopy completed Iwona Mayo [facility] 1 09:45:35 01/31 esophagogastroduodenoscopy completed Meghasc illa Mayo [facility] 1 12:05:14 10/07 Cholecystectomy completed Raymundo Apodaca MD [address] [facility] [address], [facility] [place], [address] , [facility] 8 16:59:05 05/06 Appendectomy completed Jil Manriquez MA [facility] 2 09:33:11 Laparotomy completed Yun Melgar [facility] 9 09:27:24 Cologuard completed Antonia Varela MA [facility] 1 15:12:25 Imaging Results None recorded. Procedure Notes None recorded. Medical Equipment None Reported. Allergies Allergen ID Allergen Name Allergen Category Reaction Reaction Severity Criticality Documentation Date Start Date Code Code System Note Provider Name and Address Organization Details Recorded Time Non-stero idal anti-infl ammatory agent (substanc e) medicatio n hives severe Not available 07/06/2014 26677 5008 SNOMED Breat randall diffi culty also Yun fermin [facility] 5 09:40:53 97053 Substance with sulfonami de structure and antibacte rial mechanism of action (substanc e) medicatio n hives Not available Not available 01/30/2017 63221 8003 SNOMED Raymundo martinez MD [address] [address], [facility] 7 18:52:09 74799 acetamino phen / hydrocodo ne medicatio n hives Not available Not available 10/10/2017 34370 2 RxNorm JACKELIN Swanson, [facility] 2 11:35:22 27646 Dilaudid medicatio n rash moderate Not available 10/24/20172017 36156 3 RxNorm CATE Simental, [facility] 8 10:44:22 34223 tetracycl ine medicatio n Not available Not available Not available 09/16/2019 79897 RxNorm Josie JACKELIN Tsai, [facility] 3 15:55:59 00293 polymyxin B medicatio n Not available Not available Not available 09/16/2019 8536 RxNorm Vicki Money [facility], [facility] 0 13:35:12 83605 erythromy harry medicatio n Not available Not available Not available 09/16/2019 4053 RxNorm Vicki Money zander, [facility] 0 13:35:12 34704 ibuprofen medicatio n hives Not available Not available 09/16/2019 5640 RxNorm JACKELIN Swanson, [facility] 2 11:35:18 49113 aspirin medicatio n hives Not available Not available 09/16/2019 1191 RxNorm JACKELIN Swanson [facility] 2 11:35:17 90541 naproxen medicatio n Not available Not available Not available 09/16/2019 7258 RxNorm JACKELIN Swanson [facility] 2 11:35:20 78400 lidocaine medicatio n palpitati ons Not available Not available 07/24/2022 6387 RxNorm Josie Lizbeth-Latricia friedman MA null, [facility] 3 15:55:53 4149 tetracycl ine hydrochlo ride medicatio n Not available Not available Not available 11/17/2013 89786 6 RxNorm Perlita Gilson Rosario MA null, [facility] 2 13:13:09 4150 Tylox medicatio n Not available Not available Not available 11/17/2013 47382 5 RxNorm Baldev Gray, [facility] [address] [facility] [address], [facility] [address] , [facility] 4 16:48:26 68763 Augmentin medicatio n diarrhea severe Not available 02/18/2023 15328 2 RxNorm Enriqueta Garibay LPN null, [facility] 4 08:59:38 Medications Name Sig Start Date [...] Available Not Available Nasonex 50 mcg/actua tion Alicia EACH NOSTRIL ONCE DAILY 02/25 completed RECORDED [...] 07/08 completed RECORDED 07/09/19 13 8:52AM BY ROZ OLMOS, OFFICE VISIT; Not Available Not Available [...] Not Available Not Available Opt[facility]amb er [facility] spacer USE DIRECTED WITH INHALERS active [...] Not Available Not Available Not Available Afluria 4691-0878 (PF) 45 mcg (15 mcg x 3)/0.5 mL IM syringe active Not Available Not Available Not Available Fluarix Quad 2329-9140 (PF) 60 mcg (15 mcg x 4)/0.5 mL IM syringe 06/19 completed Not Available Not Available Not Available Fluarix Quad 3248-1035 (PF) 60 mcg (15 mcg x 4)/0.5 [...] mcg x4)/0.5 mL IM syringe PHARMACY ADMINIST SUZIE 03/04 completed Not Available Not Available Not [...] Available No t Available Vitals Date Recorded Systolic And Diastolic Provider Name and Address Organization Details Last Updated DateTime 02/16/2025 118/72 mm[Hg] Raymundo Apodaca MD [address] [address], [place], [address], [facility] 02/16/2025 17:34:16 Date Recorded Body height Body mass index (BMI) Body weight Heart rate Oxygen saturation Oxygen saturation in Arterial blood by Pulse oximetry Body temperature Systolic And Diastolic Provider Name and Address Organization Details Last Updated DateTime 5 158.75 cm 35.3 kg/m2 24414.1 g 78 /min 99 % 99 % 98 [degF] 143/80 mm[Hg] Dariela Rios MA [facility] 15:46:20 Social History Question Answer Notes LastModified by Organizat ion Details LastModified Time Tobacco Smoking Status Former Smoker quit in 2009 Not Available [facility] 03/08/2020 03:36:34 Do You Have An Advance Directive? Yes [email or web address] Information not available 02/05/2022 Is Blood Transfusion Acceptable In An Emergency? Yes [id number] Information not available 03/08/2020 What Is Your Level Of Caffeine Consumption? None Information not available 01/24/2022 How Much Tobacco Do You Chew? None [id number] Information not available 03/08/2020 What Type Of Diet Are You Following? REGULAR [id number] Information not available 03/08/2020 Which Illicit Or Recreational Drugs Have You Used? None [id number] Information not available 03/08/2020 When Did You Quit Smoking? 11-15years [email or web address] igarette Information not available 11/23/2020 Live Alone Or With Others? With Others Boyfriend [email or web address] Information not available 02/05/2022 Do You Take Precautions To Prevent Distracted Driving? Yes [email or web address] Information not available 07/27/2015 How Often Do You Need To Have Someone Help You When You Read Instructions, Pamphlets, Or Other Written Material From Your Doctor Or Pharmacy? Never [email or web address] Information not available 07/27/2015 Have You Served In The ? No [email or web address] Information not available 07/31/2016 Have You Or [...] Sons And 2 Daughters 1 Daughter In [place] 1 Son In [place] 2 Grandchildren (1 Girl And 1 Boy) [email or web address] Information not available 01/24/2022 What Is Your Current Pack Years? 30ormorepa ckyears [email or web address] Information not available 02/05/2022 Do You Use Protection During Sex? No [id number] Information not available 03/08/2020 Do You Use Your Seat Belt Or Car Seat Routinely? Yes Information not available 01/24/2022 Seat Belts Used Routinely Yes [email or web address] Information not available 02/05/2022 Are You Sexually Active? Yes [id number] Information not available 03/08/2020 Smoke Alarm In Home Yes [email or web address] Information not available 02/05/2022 Do You Have Smoke And Carbon Monoxide Detectors In Your Home? Yes Information not available 01/24/2022 At What Age Did You Start Smoking Tobacco? 15 In 1975 [id number] Information not available 03/08/2020 Are You Passively Exposed To Smoke? No [email or web address] Information not available 07/31/2016 How Much Tobacco Do You Smoke? 1 PPD [id number] Information not available 03/08/2020 Do You Use Sunscreen Routinely? Yes [id number] Information not available 03/08/2020 How Many Years Have You Smoked Tobacco? 34 Information not available 11/23/2020 Sex: Unknown Functional Status Question Answer Note LastModified by Organizat ion Details LastModified Time Do you use any illicit or recreational drugs? No [email or web address] Information not available 02/05/2022 Do you or have you ever used any other forms of tobacco or nicotine? No [email or web address] Information not available 02/05/2022 What is your level of alcohol consumption? Occasional wine [id number] Information not available 03/08/2020 Do you or have you ever used smokeless tobacco? Never used smokeless tobacco [id number] Information not available 03/08/2020 Are you currently employed? Yes [id number] Information not available 03/08/2020 Are you able to walk independently without assistance or assistive devices? YESWOREST [email or web address] Information not available 02/05/2022 Are you able to care for yourself independently? 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 Information not available 01/24/2022 Do you or have you ever used e-cigarettes or vape? Never used electronic cigarettes [email or web address] Information not available 02/05/2022 What is your exercise level? None due to hip pain [email or web address] Information not available 07/24/2022 Mental Status None recorded. Family History Relationship Description Onset Age of this Age Resolved Age Notes LastModified by Organization Details LastModified Time Mother Malignant neoplasm of breast 78 metast atic [email or web address] Not available 07/27/2015 15:22:20 Brother Crohn's disease 46 [email or web address] Not available 02/05 09:18:09 Father Alzheimer's disease 80 [email or web address] Not available 07/26 15:22:20 Sister Irritable bowel syndrome [email or web address] Not available 02/05 09:18:09 Sister Crohn's disease [email or web address] Not available 02/05 09:18:09 Sister Asthma [email or web address] Not availabl e 02/04/2024 16:13:51 Son Crohn's disease [email or web address] Not available 02/05 09:18:09 Unspecified Relation Crohn's disease Not available 02/05 09:18:09 Notes:2 sisters and 1 brothe r (brother ; she's in the middle). Medical History Condition Response Other N Gout N Kidney Stones N Blood Diseases N Hyperthyroidism N COPD N Depression N Headaches/Migraines N Anxiety Disorder N Obesity N Vision or Eye Problems N Arthritis Y Infertility N Polyps N Acid Reflux (GERD) Y Cancer N Stroke N Fibromyalgia N Kidney Disease N Heart Problems N Ear or Hearing Problems N Hospitalizations N Acne N Eating Disorder N Skin Problems N Constipation N Bladder Problems N Tuberculosis N AIDS/HIV N Asthma Y Allergies Y Hepatitis N Pulmonary Embolism N Chicken Pox N Autism Spectrum Disorder (ASD) N Breast Cancer N Hypothyroidism N Lung Disease N Defects or Inherited Disease N Anesthesia Complications N Varicose Veins N Head Injury/Concussion N Congenital Anomalies N ADHD N Endometriosis Y High Cholesterol Y Liver Disease N Thyroid Problems N GI Problems Y Anemia N Mental Illness N Ovarian Cancer N Diabetes N Blood Transfusions N Seizures/Epilepsy N Congestive Heart Failure (CHF) N Eczema Y Diverticulitis N Abuse/Domestic Violence N Reflux/GERD N Hypertension N Osteoporosis N Gynecological History Statement/Question Response [...] Influenza, high-dose, trivalent, PF [facility]:05 Influenza, split virus, trivalent, PF 5 completed Iwona fermin [facility] 03/10/2021 14:23:35 Influenza, split virus, quadrivalent, preservative 6 completed Not Available [facility] 04/04/2023 08:38:45 Influenza, split virus, quadrivalent, PF 6 [facility] 11:35:05 Influenza, split virus, quadrivalent, PF 7 completed JACKELIN Swanson [facility] 02/05/2022 11:35:05 Influenza, MDCK, quadrivalent, PF 9 completed JACKELIN Lundy [facility] 04/10/2021 09:32:02 Influenza, split virus, quadrivalent, preservative 0 completed Not Available [facility] 04/04/2023 08:38:45 COVID-19, mRNA, LNP-S, PF, 30 mcg/0.3 mL dose 1 completed JACKELIN Lundy [facility] 04/10/2021 09:32:02 COVID-19, mRNA, LNP-S, PF, 30 mcg/0.3 mL dose 1 completed JACKELIN Lundy [facility] 04/10/2021 09:32:02 COVID-19, mRNA, LNP-S, PF, 100 mcg/0.5mL dose or 50 mcg/0.25mL dose 1 completed JACKELIN Swanson [facility] 02/05/2022 11:35:05 Influenza, split virus, quadrivalent, PF 1 completed JACKELIN Lundy [facility] 04/10/2021 09:32:02 Influenza, split virus, quadrivalent, PF 0 completed JACKELIN Lundy [facility] 04/10/2021 09:32:02 Novel [id number], preservative-free 9 completed JACKELIN Lundy [facility] 04/10/2021 09:32:02 Influenza, split virus, trivalent, preservative 5 completed JACKELIN Lundy [facility] 04/10/2021 09:32:02 pneumococcal polysaccharide PPV23 7 completed JACKELIN Lundy [facility] 04/10/2021 09:32:02 Influenza, split virus, trivalent, preservative 1 completed JACKELIN Lundy [facility] 04/10/2021 09:32:02 Influenza, split virus, trivalent, preservative 0 completed JACKELIN Lundy [facility] 04/10/2021 09:32:02 Influenza, split virus, trivalent, preservative 9 completed JACKELIN Lundy [facility] 04/10/2021 09:32:02 Td (adult), 2 Lf tetanus toxoid, preservative free, adsorbed 4 completed JACKELIN Lundy [facility] 04/10/2021 09:32:02 Influenza, split virus, trivalent, preservative 6 completed JACKELIN Lundy, [facility] 04/10/2021 09:32:02 pneumococcal polysaccharide PPV23 8 completed JACKELIN Swanson, [facility] 02/05/2022 11:35:05 Influenza, split virus, quadrivalent, PF 8 completed JACKELIN Swanson, [facility] 02/05/2022 11:35:05 Influenza, split virus, trivalent, PF 4 completed JACKELIN Swanson, [facility] 02/05/2022 11:35:05 Influenza, split virus, quadrivalent, PF 2 [facility] 11:35:05 influenza, seasonal, intradermal, preservative free 2 completed Iwona fermin, [facility] 03/10/2021 14:23:35 Tdap 3 completed JACKELIN Lundy, [facility] 04/10/2021 09:32:02 pneumococcal polysaccharide PPV23 3 completed Iwona fermin, [facility] 03/10/2021 14:23:35 Influenza, split virus, quadrivalent, PF 3 completed Raymundo Apodaca MD [address] [address], [place], [address], [facility] 01/30/2023 12:43:57 Td (adult), 2 Lf tetanus toxoid, preservative free, adsorbed 3 completed Raymundo Apodaca MD [address] [address], [place], [address], [facility] 01/30/2023 12:43:57 Influenza, split virus, trivalent, PF 4 completed Jamin Gong PA-C [address] [address], [place], [address], [facility] 01/13/2024 19:55:47 Past Encounters Encounter ID Performer Location Encounter Start Date Encounter Closed Date Diagnosis/Indication Diagnosis SNOMED-CT Code Diagnosis ICD10 Code Diagnosis IMO Codes Diagnosis Note [id number] Raymundo Apodaca MD Main Office [address] [address] 01/21/2025 15:10:35 01/21/2025 16:14:38 Candidiasis of mouth 16690116 B37.0 59026 We treated her in the past for this but her symptoms have returned. She is at risk because of steroid use. She has tried clotrimazo le troches and nystatin swish and swallow and would like to try something different. Body mass index 30+ - obesity 564323249 Z68.30 E66.9 She has severe LIZZ. Impacted c erumen of bilateral ears [id number] 124699 H61.23 [id number] Raymundo Apodaca MD Main Office [address] [address] 02/16/2025 15:37:04 02/16/2025 16:41:27 Adult health examination [id number] Z00.00 She is UTD with [employer] care. Her last PAP was June 2022 [...] due again in 2030. Influenza vaccine needed 0046142402 106 Z23 65 YEARS AND OLDER Hyperlipidemia 53954702 E78.5 Tolerating atorvastat in. Will check fasting lipid level next appointmen t. Gastroesop hageal reflux disease 521183642 K21.9 Currently under control w/PPI. Chronic ki dney disease stage 1 279071180 N18.1 Hypertensi ve renal disease 23737273 I12.9 Good control; continue current mgmt. Moderate p ersistent asthma 860418442 J45.40 Uses maintenanc e inhaler and rarely uses her rescue inhaler. The last time her rescue inhaler was filled was 8 months ago. Obstructiv e sleep apnea syndrome 17578178 G47.33 Stable with CPAP. Bone density finding 385 111488 M85.89 She will schedule Screening for malignant neoplasm of breast 076674720 Z12.39 She will schedule Administra tion of pneumococcal vaccine 29825680 Z23 Advised to get this at her pharmacy. Health Concerns Section Related Observation LastModified by Organization Detai ls LastModified Time None Recorded Concern Status LastModified by Organization Details LastModified Time None Recorded Payers Encounter Date Sequence Insurance Name Policy Number Policy Lan Covered Member ID Lan Member ID Guarantor Name 02/16/2025 1 [facility]: [facility] [place] [place] [id number] Renee Pradhan [id number] Renee Pradhan Notes Date Note Type Note Provider Name and Address Organization Details Recorded Time 02/16/2025 text/html Generic HPI TemplateReported by PatientHere for a PE.Currently doing well.She had her third bout of COVID one month ago (January 2025) and completed paxlovid. Raymundo Apodaca MD [address], [place], [address], [facility] 02/16/2025 17:43:20 OBGyn Episode No OBEpisode recorded.
== END 2025-02-19 16:21 | disposition home or self-care (01) ==
LOC: HO.HPSW 15:34
PROVIDERS: PCP Internal Medicine; Visit Provider Nurse Practitioner Family
DX: J44.89 Other specified chronic obstructive pulmonary disease (principal); R05.9 Cough, unspecified; Z91.09 Other allergy status, other than to drugs and biological substances; Z87.891 Personal history of nicotine dependence; G47.33 Obstructive sleep apnea (adult) (pediatric); R91.1 Solitary pulmonary nodule
CPT/HCPCS: 99214